=== PATIENT | male | born 1960 | race Caucasian/White ===

== ENCOUNTER 2020-11-16 15:32 | Inpatient (IN) | payer MEDICAID ==
--- NOTE | 2020-11-16 17:03 | EDM.PDOC ---
ED HPI GENERAL MEDICAL PROBLEM - General Chief Complaint: General Stated Complaint: general Time Seen by Provider: 11/16/20 16:20 Source of Information: Reports: Patient, EMS, Assisted Records - History of Present Illness INITIAL COMMENTS - FREE TEXT/NARRATIVE: Brady is a 60 y/o male who is brought to the ER by EMS. He was apparently a patient at [facility] in the [facility] for a chronic diabetic foot ulcer. He was [place] from [facility] and had a transport service bring him to [facility] for admission in [place]. Dr Garvey accepted the patient to [facility]. Upon arrival to the [facility] the patient was made aware that he would have to quarantine for 2 weeks due to the current COVID policy. He refused to be admitted there to the custodial and because he was still in the care of the transit service, 911 was called and [facility] brought him to the ER since he had no other place to go. access services assistant looked into the situation and this patient has apparently been in [place] and then went to [place], but was sent back to [place]. [place] then ended up sending him to [facility] to [facility] and he was taken care of there. Apparently he was going to be sent to a homeless half-way in the [facility], but was declined since he is wheelchair bound. He also has a power chair, but there was some issue with it and he needed to get a new one. He does not arrive here with a chair. low back Pain Score (Numeric/FACES): 6 - Related Data Allergies Allergy/AdvReac Type Severity Reaction Status Date / Time linezolid Allergy Other Verified 11/16/20 17:01 tetanus toxoid, adsorbed Allergy Other Verified 11/16/20 17:01 Home Meds: Home Meds Acetaminophen 650 mg PO Q4H PRN 11/16/20 [History] Albuterol [Proventil Neb Soln] 2.5 mg NEB Q4H PRN 11/16/20 [History] Albuterol/Ipratropium [DuoNeb 3.0-0.5 MG/3 ML] 3 ml NEB Q4H PRN 11/16/20 [History] Fluticasone Propion/Salmeterol [Fluticasone-Salmeterol 500-50] 1 inh PO BID 11/16/20 [History] Insulin Aspart [Novolog Flexpen] 34 unit SQ TIDMEALS 11/16/20 [History] Insulin Glarg,Human.Rec.Analog [Lantus Solostar] 78 units SQ DAILY@1500 11/16/20 [History] Ipratropium [Atrovent HFA Inh] 1 inh PO TID 11/16/20 [History] Losartan Potassium [Cozaar] 100 mg PO DAILY 11/16/20 [History] Multivitamin with Minerals [Multivitamins with Minerals] 1 tab PO DAILY 11/16/20 [History] Omeprazole 20 mg PO BIDAC 11/16/20 [History] Pregabalin 300 mg PO BID 11/16/20 [History] Tamsulosin HCl [Flomax] 0.4 mg PO DAILY 11/16/20 [History] Umeclidinium [place] [Incruse Ellipta] 1 inh PO DAILY 11/16/20 [History] amLODIPine [Norvasc] 5 mg PO DAILY 11/16/20 [History] atorvaSTATin [Lipitor] 40 mg PO BEDTIME 11/16/20 [History] hydroCHLOROthiazide [Hydrochlorothiazide] 50 mg PO DAILY 11/16/20 [History] ED ROS GENERAL - Review of Systems Review Of Systems: See Below Constitutional: Reports: No Symptoms HEENT: Reports: No Symptoms Respiratory: Reports: No Symptoms Cardiovascular: Reports: No Symptoms Endocrine: Reports: No Symptoms GI/Abdominal: Reports: No Symptoms : Reports: No Symptoms Musculoskeletal: Reports: No Symptoms Skin: Reports: No Symptoms Neurological: Reports: No Symptoms Psychiatric: Reports: No Symptoms Hematologic/Lymphatic: Reports: No Symptoms Immunologic: Reports: No Symptoms ED EXAM, GENERAL - Physical Exam Exam: See Below General Appearance: Alert, WD/WN, No Apparent Distress (Adult male, clothes slightly upkept.) Ears: Hearing Grossly Normal Nose: Normal Inspection, Normal Mucosa Throat/Mouth: Normal Inspection, Normal Lips, Normal Voice Head: Atraumatic, Normocephalic Respiratory/Chest: No Respiratory Distress GI/Abdominal: Normal Bowel Sounds, Soft (Male) Exam: Deferred Rectal (Males) Exam: Deferred Back Exam: Normal Inspection Extremities: Other (Note right BKA with well healed stump, 1 scabbed area noted on the right knee; left foot is partially amputated with an ulcer about 3cm in diameter noted on the bottom of the foot, there is a superficial open area on jesus top of the left foot along the healing incision.) Course - Vital Signs Text/Narrative:: The patient was seen by the RESEARCH PROJECT MANAGER. Patient had no complaints. footwear factory worker called to assist with placement. footwear factory worker spoke with patient and [facility] Reference Investigator. Patient has no other place to go at this time and no family in [place]. At 1655 Dr Bruce notified of need for patient to be admitted to Swing Bed and further social issues arranged. COVID testing ordered for admit to PCU. Last Recorded V/S: Last Vital Signs Temp 37.4 C 11/16/20 15:35 Pulse 100 11/16/20 15:35 Resp 18 11/16/20 15:35 BP 139/73 11/16/20 15:35 Pulse Ox 96 11/16/20 15:35 - Orders/Labs/Meds Orders: Active Orders 24 hr Category Date Time Status CORONAVIRUS COVID-19 RAPID [MOLEC] Stat Lab 11/16/20 17:04 Ordered Departure - Departure Time of Disposition: 17:00 Disposition: DC/Tfer to SNF 03 Condition: Good Clinical Impression: Chronic diabetic ulcer of left foot determined by examination, Homelessness Type 2 diabetes mellitus Qualifiers: Diabetes mellitus residential insulin use: unspecified residential insulin use status Diabetes mellitus complication status: with other specified complication Qualified Code(s): E11.69 - Type 2 diabetes mellitus with other specified complication - Discharge Information Referrals: Maria Del Carmen Garvey MD [Physician] - Forms: ED Department Discharge Additional Instructions: -Admit to SB per Dr Bruce Sepsis Event Note (ED) - Evaluation Sepsis Screening Result: No Definite Risk - Focused Exam Vital Signs: Vital Signs Temp Pulse Resp BP Pulse Ox 11/16/20 15:35 37.4 C 100 18 139/73 96 - My Orders Last 24 Hours: My Active Orders 11/16/20 17:04 CORONAVIRUS COVID-19 RAPID [MOLEC] Stat - Assessment/Plan Last 24 Hours: My Active Orders 11/16/20 17:04 CORONAVIRUS COVID-19 RAPID [MOLEC] Stat Assessment:: 1)Chronic Diabetic Foot Ulcer-Left Foot 2)Left Partal Amputation 2)Right BKA 3)Hx Type 2 DM 4)Homelessness Plan: See above
[2020-11-16] MEDS ORDERED: ALBUTEROL NEB PRN (17:42)
[2020-11-16] MEDS ORDERED: Albuterol/Ipratropium 3.0-0.5 MG/3 ML Neb Soln NEB PRN (17:42)
[2020-11-16] MEDS ORDERED: Glucagon,Human Recombinant 1 MG Vial IM PRN (17:44)
[2020-11-16] MEDS ORDERED: 50% Dextrose in Water 50 ML Syringe IVPUSH PRN (17:44)
[2020-11-16] MEDS ORDERED: atorvaSTATin 40 MG Tab PO SCH (20:00)
[2020-11-16] MEDS: Acetaminophen 325 MG Tab PO PRN (20:09)
[2020-11-16] MEDS: PREGABALIN PO SCH (20:11)
[2020-11-16] MEDS: INSULIN ASPART 100 UNIT/ML SQ SCH (20:43)
[2020-11-16] MEDS: Nicotine 21 MG/24 Hr Patch TRDERM SCH ×2 (20:43→23:57)
[2020-11-16] MEDS: INSULIN ASPART 100 UNIT/ML SUBCUT SCH (20:44)
[2020-11-16] MEDS: LANTUS 100 UNIT/ML SQ SCH (20:45)
[2020-11-16] MEDS: SALMETEROL PO SCH (20:45)
[2020-11-16] MEDS: FLUTICASONE PO SCH (20:45)
--- NOTE | 2020-11-16 22:58 | HP ---
CHIEF COMPLAINT: Weakness with diabetic ulcer. HISTORY OF PRESENT ILLNESS: The patient is a 60-year-old male who was intended to enter the [facility] today from transfer from [facility] yesterday. However, the patient did not get on the bus yesterday and came today. When he got to the care center, which was going to work with strengthening him after a known diabetic foot ulcer as he has had a prior right leg amputation, that [facility] have to be in quarantine for 14 days due to their protocol for COVID patients, and so he was brought over here to [facility] and dropped off. He was seen initially by JI Selby in emergency room, who had visited with social work job titles, Debo Garber, who felt that best option for the patient who needs to have placement figured out would be to place him on swing bed self-pay. To note, the patient has an extremely complicated history of multiple placements within the past several months. He is noted to be homeless. He had been living in [place] and then sent to [place] and then sent to [place]. He had been accepted at the [facility] by Dr. Maria Del Carmen Garvey. The patient denies being in any pain right now. He is weak. He has a difficult time with transfers. He has known chronic low back pain. The patient is otherwise alert. MEDICATIONS: He is currently on are acetaminophen 650 q.4 hours p.r.n., albuterol nebs 2.5 mg q.4 hours p.r.n., DuoNeb 3 mL q.4 hours p.r.n., amlodipine 5 mg 1 pill daily, atorvastatin 40 mg 1 pill at bedtime, fluticasone 1 inhalation twice a day nasal spray, hydrochlorothiazide 50 mg 1 pill daily, insulin NovoLog 34 units subcu t.i.d., insulin glargine 78 units at bedtime, ipratropium 1 inhalation 3 times a day, losartan 100 mg 1 pill daily, multivitamin 1 pill daily, omeprazole 20 mg 1 pill twice a day, Lyrica 300 mg 1 pill twice a day, tamsulosin 0.4 mg 1 pill daily, umeclidinium inhaler 1 inhalation daily. ALLERGIES: Linezolid (Zyvox) and tetanus toxoid. PAST MEDICAL HISTORY: The patient has a history of uncontrolled type 2 diabetes mellitus. He has had chronic ulcerations of his foot. He has had a left TMA and he has had a right BKA about 4 years ago. The patient has had an ulcer on his left foot. He has had hypertension, hypercholesterolemia, COPD, malnutrition, chronic low back pain with history of medical marijuana use, gastroesophageal reflux disease, intoxication in the past. He has had MRSA years ago. He denies any history of hepatitis infections or HIV infections. He had tobacco use disorder, history of osteomyelitis, diverticulosis. The patient had COVID-19 in 01/2020, was not hospitalized for it. He has not had the COVID vaccine and refuses to. PAST SURGICAL HISTORY: Upper GI with endoscopic ultrasound on 12/02/2018, ERCP 12/02/2018, amputation of transmetatarsal of his feet on the left. Had back surgery L1-L4. Had neck surgery, C2 fracture repair. He has had BKA of the right leg. FAMILY MEDICAL HISTORY: Mother of heart disease and had stroke and hypertension. Father had liver disease, heart disease, and lung disease. Two sisters are healthy. One sister has substance abuse. A brother has had substance abuse and of a fentanyl overdose. Maternal grandmother had breast cancer. Maternal grandfather had gout and a retinal detachment. Paternal grandmother had heart disease. SOCIAL HISTORY: The patient is single, never been . He is currently homeless. He had stayed in the [place] in [place] for several years and had lived at [facility]. The patient does not smoke cigarettes, but does chew tobacco. He will have alcohol use 1 to 2 cans a day. The patient is currently in a wheelchair. Does have a prosthetic leg. The patient when asked code level status, states that he does not want to be resuscitated and so therefore will be code level 2 status. This conversation was held in the presence of JI Jaime student. REVIEW OF SYSTEMS: The patient's weight has been about the same. No fever. No cough. No shortness of breath. No chest pain. No nausea. Bowels have been regular. He does have low back pain. No burning with urination. He has a dressed ulcer on bottom of his foot, is not currently draining. Right stump on his leg is well healed. He is weak. OBJECTIVE: Vital Signs: His blood pressure is 136/73, pulse 100, respiratory rate is 18, sats are 96%, temperature 99.4. HEENT: Pupils equal and reactive to light. Tympanic membranes are normal bilaterally. Pharynx is normal. No injection. He has no teeth. The patient has facial stubble present. Neck: No anterior cervical lymphadenopathy. Heart: Regular rate and rhythm without murmurs or bruits. Lungs: Clear to auscultation without wheezes or crackles. Abdomen: Bowel sounds are present. Soft, nontender. Obese. No hepatosplenomegaly appreciated. Skin: He has a few abrasions on his lower legs. He does have a sore on the bottom of his foot, looked up by Carolee WORKMAN, which is 3 cm in size with sharp margins with no odor. [place] granulation tissue present on the bottom of his stump. He has a small blister on the top of his left foot. Right BKA incision is well healed. Neurologic: He is alert, oriented, pleasant to visit with. His talking goes somewhat tangential at times. IMPRESSION: 1. Left diabetic foot ulcer. 2. Uncontrolled diabetes. 3. Weakness. 4. Homelessness. 5. Chronic low back pain. 6. Chewing tobacco addiction. 7. Hypertension. 8. Peptic ulcer disease. 9. Anxiety. 10.Substance abuse. 11.Chronic obstructive pulmonary disease. PLAN: The patient will be admitted to self-pay swing bed. Debo Garber, social work job titles, is aware of the patient being admitted. We will monitor his blood sugars. We will have Physical Therapy and OT work with the patient. Maria Del Carmen Garvey MD, will be accepting the patient. The patient will have a COVID screen. The patient will also be screened for MRSA as well due to his past history of MRSA. He was not placed on lovenox as it was felt that he was at his baseline for mobility. His COVID screen did come back negative. GM11/16/2020 18:03:56 MODL: 11/16/2020 22:48:41 /[id number] MTDD
[2020-11-17] MEDS: Omeprazole 20 MG Cap.CR PO SCH ×2 (06:01→16:23)
[2020-11-17] MEDS: INSULIN ASPART 100 UNIT/ML SUBCUT SCH ×3 (11:12→18:16)
[2020-11-17] MEDS: Nicotine 21 MG/24 Hr Patch TRDERM SCH (11:12)
[2020-11-17] MEDS: INSULIN ASPART 100 UNIT/ML SQ SCH (11:23)
[2020-11-17] MEDS: FLUTICASONE PO SCH ×2 (11:53→20:00)
[2020-11-17] MEDS: INSULIN ASPART SQ SCH ×2 (11:53→18:15)
[2020-11-17] MEDS: Multivitamins with Iron/Calcium/Folic Acid/Minerals Tab PO SCH (11:53)
[2020-11-17] MEDS: SALMETEROL PO SCH ×2 (11:53→20:00)
[2020-11-17] MEDS: PREGABALIN PO SCH ×2 (11:53→19:57)
[2020-11-17] MEDS ORDERED: IPRATROPIUM PO SCH (12:00)
[2020-11-17] MEDS ORDERED: UMECLIDINIUM BROMIDE 62.5 MCG PO SCH (16:00)
--- NOTE | 2020-11-17 16:19 | PCM.SN.2 ---
- Free Text/Narrative Note: Patient was seen for quick bedside rounds morning. Was admitted yesterday. Refused to go to the group home as he did not want to be under isolation. I was supposed to accept him from [facility] to [facility] for ongoing cares in regards to PT for strengthening and wound cares for his chronic ulcer. He does have a very difficult social situation with the patient being basically homeless and being shuffled from facility to facility. During rounds this morning he noted that he does not want to go anywhere. He would rather go back home and live [place]. He had no specific concerns at that time. Nursing did note that blood sugars were a little bit low today after he was initiated on the higher dose of insulin last night. We did decide to cut down his mealtime insulin to 25 units 3 times a day. He can continue on the long acting at 78 units daily. I did speak with pharmacy about some of the other medication concerns as these were not sent with and he is on self-pay swing; questions were clarified and pharmacist planned to send prescriptions for me. Spent considerable amount of time talking with her social sciences professor in regards to plan of care this patient. squadron worker is actively working with him to find a good fit in terms of plan of discharge. Was informed by the nurse late this morning that he is threatening to leave AMA if he does not get a pass to be able to go out into the community. Did state on rounds that he wanted to go see some of the businesses as well as explore some of the [place]. Told the nurse that he just wants to feel to go and buy chewing tobacco as well as some clothing. I did deny his pass to leave the facility as he is a brand-new patient to me and I did not want to have the liability of him potentially harming himself or others while technically under our watch. It does seem like he has decision-making capacity. I will relate this situation to the physician who will be technical operations manager overnight. Anticipate that if he does leave AMA that he will likely need to be readmitted as there is probably no where else for him to go in the community at this time.
[2020-11-17] MEDS: Tamsulosin 0.4 MG Cap.ER (OWN SUPPLY) PO SCH (16:22)
[2020-11-17] MEDS: LOSARTAN POTASSIUM PO SCH (16:22)
[2020-11-17] MEDS: amLODIPine 5 MG Tab (OWN SUPPLY) PO SCH (16:23)
[2020-11-17] MEDS: HYDROCHLOROTHIAZIDE 50 MG PO SCH (16:23)
[2020-11-17] MEDS: [UNRECOGNIZED DRUG - OTHER] INH SCH (16:23)
[2020-11-17] MEDS: TIOTROPIUM INH SCH (16:23)
[2020-11-17] MEDS: NICOTINE 2 MG PO PRN ×3 (16:24→23:58)
[2020-11-17] MEDS: LANTUS 100 UNIT/ML SQ SCH (20:07)
[2020-11-18] MEDS: Albuterol/Ipratropium 3.0-0.5 MG/3 ML Neb Soln NEB PRN (02:15)
[2020-11-18] MEDS: Acetaminophen 325 MG Tab PO PRN ×2 (04:08→22:31)
[2020-11-18] MEDS: Omeprazole 20 MG Cap.CR PO SCH ×2 (06:18→17:21)
[2020-11-18] MEDS: Tamsulosin 0.4 MG Cap.ER (OWN SUPPLY) PO SCH (07:59)
[2020-11-18] MEDS: LOSARTAN POTASSIUM PO SCH (07:59)
[2020-11-18] MEDS: HYDROCHLOROTHIAZIDE 50 MG PO SCH (07:59)
[2020-11-18] MEDS: Nicotine 21 MG/24 Hr Patch TRDERM SCH (08:00)
[2020-11-18] MEDS: amLODIPine 5 MG Tab (OWN SUPPLY) PO SCH (08:00)
[2020-11-18] MEDS: INSULIN ASPART SQ SCH ×3 (08:00→18:07)
[2020-11-18] MEDS: PREGABALIN PO SCH (08:00)
[2020-11-18] MEDS: FLUTICASONE PO SCH ×2 (08:01→19:41)
[2020-11-18] MEDS: [UNRECOGNIZED DRUG - OTHER] INH SCH (08:01)
[2020-11-18] MEDS: TIOTROPIUM INH SCH (08:01)
[2020-11-18] MEDS: NICOTINE 2 MG PO PRN (08:01)
[2020-11-18] MEDS: SALMETEROL PO SCH ×2 (08:01→19:41)
[2020-11-18] MEDS: INSULIN ASPART 100 UNIT/ML SUBCUT SCH ×3 (08:02→18:04)
[2020-11-18] MEDS: Multivitamins with Iron/Calcium/Folic Acid/Minerals Tab PO SCH (08:03)
[2020-11-18] MEDS: GUM PO PRN ×5 (12:11→23:14)
[2020-11-18] MEDS: NICOTINE 4 MG PO PRN ×5 (12:11→23:14)
[2020-11-18] MEDS: PREGABALIN 300 MG PO SCH (19:40)
[2020-11-18] MEDS: LANTUS 100 UNIT/ML SQ SCH (19:47)
[2020-11-18] MEDS: Melatonin 3 MG Tab PO PRN (22:31)
[2020-11-19] MEDS: Multivitamins with Iron/Calcium/Folic Acid/Minerals Tab PO SCH (07:40)
[2020-11-19] MEDS: Omeprazole 20 MG Cap.CR PO SCH ×2 (07:40→17:41)
[2020-11-19] MEDS: Tamsulosin 0.4 MG Cap.ER (OWN SUPPLY) PO SCH (07:41)
[2020-11-19] MEDS: HYDROCHLOROTHIAZIDE 50 MG PO SCH (07:41)
[2020-11-19] MEDS: LOSARTAN POTASSIUM PO SCH (07:42)
[2020-11-19] MEDS: amLODIPine 5 MG Tab (OWN SUPPLY) PO SCH (07:42)
[2020-11-19] MEDS: PREGABALIN 300 MG PO SCH ×2 (07:44→19:52)
[2020-11-19] MEDS: SALMETEROL PO SCH ×2 (07:45→19:53)
[2020-11-19] MEDS: Nicotine 21 MG/24 Hr Patch TRDERM SCH (07:45)
[2020-11-19] MEDS: FLUTICASONE PO SCH ×2 (07:45→19:53)
[2020-11-19] MEDS: [UNRECOGNIZED DRUG - OTHER] INH SCH (07:46)
[2020-11-19] MEDS: TIOTROPIUM INH SCH (07:46)
[2020-11-19] MEDS: NICOTINE 4 MG PO PRN ×3 (07:47→13:41)
[2020-11-19] MEDS: GUM PO PRN ×3 (07:47→13:41)
[2020-11-19] MEDS: INSULIN ASPART 100 UNIT/ML SUBCUT SCH ×3 (07:50→17:41)
[2020-11-19] MEDS: INSULIN ASPART SQ SCH ×3 (07:50→17:41)
[2020-11-19] MEDS: LANTUS SQ SCH (19:48)
[2020-11-19] MEDS ORDERED: INSULIN GLARGINE SQ SCH (20:00)
[2020-11-19] MEDS ORDERED: [UNRECOGNIZED DRUG - OTHER] SQ SCH (20:00)
[2020-11-19] MEDS: Albuterol/Ipratropium 3.0-0.5 MG/3 ML Neb Soln NEB PRN (20:53)
[2020-11-20] MEDS: Acetaminophen 325 MG Tab PO PRN ×2 (00:15→04:18)
[2020-11-20] MEDS: Omeprazole 20 MG Cap.CR PO SCH ×2 (06:23→17:50)
[2020-11-20] MEDS: amLODIPine 5 MG Tab (OWN SUPPLY) PO SCH (07:41)
[2020-11-20] MEDS: Multivitamins with Iron/Calcium/Folic Acid/Minerals Tab PO SCH (07:42)
[2020-11-20] MEDS: Tamsulosin 0.4 MG Cap.ER (OWN SUPPLY) PO SCH (07:42)
[2020-11-20] MEDS: LOSARTAN POTASSIUM PO SCH (07:42)
[2020-11-20] MEDS: HYDROCHLOROTHIAZIDE 50 MG PO SCH (07:43)
[2020-11-20] MEDS: PREGABALIN 300 MG PO SCH ×2 (07:43→19:58)
[2020-11-20] MEDS: INSULIN ASPART SQ SCH ×3 (07:44→17:29)
[2020-11-20] MEDS: FLUTICASONE PO SCH ×2 (07:44→19:56)
[2020-11-20] MEDS: SALMETEROL PO SCH ×2 (07:44→19:56)
[2020-11-20] MEDS: Nicotine 21 MG/24 Hr Patch TRDERM SCH (07:44)
[2020-11-20] MEDS: [UNRECOGNIZED DRUG - OTHER] INH SCH (07:44)
[2020-11-20] MEDS: TIOTROPIUM INH SCH (07:44)
[2020-11-20] MEDS: LANTUS SQ SCH (20:05)
[2020-11-21] MEDS: Omeprazole 20 MG Cap.CR PO SCH ×2 (06:12→17:25)
[2020-11-21] MEDS: Multivitamins with Iron/Calcium/Folic Acid/Minerals Tab PO SCH (07:29)
[2020-11-21] MEDS: HYDROCHLOROTHIAZIDE 50 MG PO SCH (07:29)
[2020-11-21] MEDS: LOSARTAN POTASSIUM PO SCH (07:30)
[2020-11-21] MEDS: Tamsulosin 0.4 MG Cap.ER (OWN SUPPLY) PO SCH (07:30)
[2020-11-21] MEDS: amLODIPine 5 MG Tab (OWN SUPPLY) PO SCH (07:30)
[2020-11-21] MEDS: PREGABALIN 300 MG PO SCH ×2 (07:31→19:33)
[2020-11-21] MEDS: INSULIN ASPART SQ SCH ×3 (07:33→17:25)
[2020-11-21] MEDS: SALMETEROL PO SCH ×2 (07:34→19:36)
[2020-11-21] MEDS: TIOTROPIUM INH SCH (07:34)
[2020-11-21] MEDS: FLUTICASONE PO SCH ×2 (07:34→19:36)
[2020-11-21] MEDS: [UNRECOGNIZED DRUG - OTHER] INH SCH (07:34)
[2020-11-21] MEDS: Nicotine 21 MG/24 Hr Patch TRDERM SCH (07:34)
[2020-11-21] MEDS: Albuterol/Ipratropium 3.0-0.5 MG/3 ML Neb Soln NEB PRN (19:29)
[2020-11-21] MEDS: LANTUS SQ SCH (19:39)
[2020-11-22] MEDS: Omeprazole 20 MG Cap.CR PO SCH ×2 (06:33→17:37)
[2020-11-22] MEDS: INSULIN ASPART SQ SCH ×3 (08:09→17:36)
[2020-11-22] MEDS: Nicotine 21 MG/24 Hr Patch TRDERM SCH (08:09)
[2020-11-22] MEDS: PREGABALIN 300 MG PO SCH ×2 (08:10→19:44)
[2020-11-22] MEDS: Multivitamins with Iron/Calcium/Folic Acid/Minerals Tab PO SCH (08:10)
[2020-11-22] MEDS: LOSARTAN POTASSIUM PO SCH (08:11)
[2020-11-22] MEDS: amLODIPine 5 MG Tab (OWN SUPPLY) PO SCH (08:11)
[2020-11-22] MEDS: HYDROCHLOROTHIAZIDE 50 MG PO SCH (08:12)
[2020-11-22] MEDS: SALMETEROL PO SCH ×2 (08:12→19:45)
[2020-11-22] MEDS: Tamsulosin 0.4 MG Cap.ER (OWN SUPPLY) PO SCH (08:12)
[2020-11-22] MEDS: FLUTICASONE PO SCH ×2 (08:12→19:45)
[2020-11-22] MEDS: TIOTROPIUM INH SCH (08:14)
[2020-11-22] MEDS: [UNRECOGNIZED DRUG - OTHER] INH SCH (08:14)
[2020-11-22] MEDS: Albuterol/Ipratropium 3.0-0.5 MG/3 ML Neb Soln NEB PRN ×2 (15:15→19:50)
[2020-11-22] MEDS: LANTUS SQ SCH (19:48)
[2020-11-23] MEDS: Melatonin 3 MG Tab PO PRN (02:06)
[2020-11-23] MEDS: Omeprazole 20 MG Cap.CR PO SCH ×2 (06:11→16:46)
[2020-11-23] MEDS: amLODIPine 5 MG Tab (OWN SUPPLY) PO SCH (08:09)
[2020-11-23] MEDS: PREGABALIN 300 MG PO SCH ×2 (08:09→20:03)
[2020-11-23] MEDS: HYDROCHLOROTHIAZIDE 50 MG PO SCH (08:10)
[2020-11-23] MEDS: Tamsulosin 0.4 MG Cap.ER (OWN SUPPLY) PO SCH (08:10)
[2020-11-23] MEDS: LOSARTAN POTASSIUM PO SCH (08:10)
[2020-11-23] MEDS: Multivitamins with Iron/Calcium/Folic Acid/Minerals Tab PO SCH (08:11)
[2020-11-23] MEDS: TIOTROPIUM INH SCH (08:11)
[2020-11-23] MEDS: FLUTICASONE PO SCH ×2 (08:11→20:03)
[2020-11-23] MEDS: SALMETEROL PO SCH ×2 (08:11→20:03)
[2020-11-23] MEDS: [UNRECOGNIZED DRUG - OTHER] INH SCH (08:11)
[2020-11-23] MEDS: Nicotine 21 MG/24 Hr Patch TRDERM SCH (08:11)
[2020-11-23] MEDS: Acetaminophen 325 MG Tab PO PRN ×2 (08:12→16:46)
[2020-11-23] MEDS: INSULIN ASPART SQ SCH ×3 (09:19→17:45)
[2020-11-23] MEDS: Albuterol/Ipratropium 3.0-0.5 MG/3 ML Neb Soln NEB PRN (15:05)
[2020-11-23] MEDS: LANTUS SQ SCH (20:01)
[2020-11-23] MEDS: GUM PO PRN (21:21)
[2020-11-23] MEDS: NICOTINE 4 MG PO PRN (21:21)
[2020-11-23] MEDS ORDERED: Calcium Carbonate 750 MG Tab.Chew PO PRN ×3 (22:36→22:58)
[2020-11-23] MEDS ORDERED: Calcium Carbonate 750 MG Tab.Chew PO ONE (22:50)
[2020-11-24] MEDS: Ibuprofen 200 MG Tab PO PRN (00:05)
[2020-11-24] MEDS: Melatonin 3 MG Tab PO PRN (01:34)
[2020-11-24] MEDS: Albuterol/Ipratropium 3.0-0.5 MG/3 ML Neb Soln NEB PRN (02:41)
[2020-11-24] MEDS: Omeprazole 20 MG Cap.CR PO SCH ×2 (06:10→17:46)
[2020-11-24] MEDS: Multivitamins with Iron/Calcium/Folic Acid/Minerals Tab PO SCH (09:32)
[2020-11-24] MEDS: PREGABALIN 300 MG PO SCH ×2 (09:35→20:57)
[2020-11-24] MEDS: Tamsulosin 0.4 MG Cap.ER (OWN SUPPLY) PO SCH (09:36)
[2020-11-24] MEDS: Nicotine 21 MG/24 Hr Patch TRDERM SCH (09:36)
[2020-11-24] MEDS: FLUTICASONE PO SCH ×2 (09:38→20:57)
[2020-11-24] MEDS: SALMETEROL PO SCH ×2 (09:38→20:57)
[2020-11-24] MEDS: HYDROCHLOROTHIAZIDE 50 MG PO SCH (09:38)
[2020-11-24] MEDS: amLODIPine 5 MG Tab (OWN SUPPLY) PO SCH (09:39)
[2020-11-24] MEDS: LOSARTAN POTASSIUM PO SCH (09:39)
[2020-11-24] MEDS: TIOTROPIUM INH SCH (09:41)
[2020-11-24] MEDS: [UNRECOGNIZED DRUG - OTHER] INH SCH (09:41)
[2020-11-24] MEDS: INSULIN ASPART SQ SCH ×3 (09:41→17:51)
[2020-11-24] MEDS: LANTUS SQ SCH (20:59)
[2020-11-25] MEDS: Omeprazole 20 MG Cap.CR PO SCH ×2 (06:35→17:40)
[2020-11-25] MEDS: Tamsulosin 0.4 MG Cap.ER (OWN SUPPLY) PO SCH (10:30)
[2020-11-25] MEDS: Nicotine 21 MG/24 Hr Patch TRDERM SCH (10:30)
[2020-11-25] MEDS: amLODIPine 5 MG Tab (OWN SUPPLY) PO SCH (10:31)
[2020-11-25] MEDS: HYDROCHLOROTHIAZIDE 50 MG PO SCH (10:31)
[2020-11-25] MEDS: PREGABALIN 300 MG PO SCH ×2 (10:34→20:55)
[2020-11-25] MEDS: LOSARTAN POTASSIUM PO SCH (10:34)
[2020-11-25] MEDS: Multivitamins with Iron/Calcium/Folic Acid/Minerals Tab PO SCH (10:37)
[2020-11-25] MEDS: TIOTROPIUM INH SCH (10:41)
[2020-11-25] MEDS: [UNRECOGNIZED DRUG - OTHER] INH SCH (10:41)
[2020-11-25] MEDS: SALMETEROL PO SCH ×2 (10:42→20:48)
[2020-11-25] MEDS: FLUTICASONE PO SCH ×2 (10:42→20:48)
[2020-11-25] MEDS: INSULIN ASPART SQ SCH ×3 (10:43→17:42)
[2020-11-25] MEDS: Albuterol/Ipratropium 3.0-0.5 MG/3 ML Neb Soln NEB PRN (14:38)
[2020-11-25] MEDS: LANTUS SQ SCH (20:50)
[2020-11-26] MEDS: Ibuprofen 200 MG Tab PO PRN (06:21)
[2020-11-26] MEDS: Omeprazole 20 MG Cap.CR PO SCH ×2 (06:21→17:35)
[2020-11-26] MEDS: Acetaminophen 325 MG Tab PO PRN (08:45)
[2020-11-26] MEDS: Multivitamins with Iron/Calcium/Folic Acid/Minerals Tab PO SCH (08:45)
[2020-11-26] MEDS: PREGABALIN 300 MG PO SCH ×2 (08:46→20:38)
[2020-11-26] MEDS: SALMETEROL PO SCH ×2 (08:46→20:38)
[2020-11-26] MEDS: FLUTICASONE PO SCH ×2 (08:46→20:38)
[2020-11-26] MEDS: [UNRECOGNIZED DRUG - OTHER] INH SCH (08:47)
[2020-11-26] MEDS: TIOTROPIUM INH SCH (08:47)
[2020-11-26] MEDS: HYDROCHLOROTHIAZIDE 50 MG PO SCH (08:48)
[2020-11-26] MEDS: LOSARTAN POTASSIUM PO SCH (08:48)
[2020-11-26] MEDS: Tamsulosin 0.4 MG Cap.ER (OWN SUPPLY) PO SCH (08:49)
[2020-11-26] MEDS: amLODIPine 5 MG Tab (OWN SUPPLY) PO SCH (08:49)
[2020-11-26] MEDS: Nicotine 21 MG/24 Hr Patch TRDERM SCH (08:55)
[2020-11-26] MEDS: INSULIN ASPART SQ SCH ×3 (08:55→17:36)
[2020-11-26] MEDS: LANTUS SQ SCH (21:18)
[2020-11-27] MEDS: Omeprazole 20 MG Cap.CR PO SCH ×2 (06:33→17:51)
[2020-11-27] MEDS: Multivitamins with Iron/Calcium/Folic Acid/Minerals Tab PO SCH (08:20)
[2020-11-27] MEDS: SALMETEROL PO SCH ×2 (08:22→19:54)
[2020-11-27] MEDS: FLUTICASONE PO SCH ×2 (08:22→19:54)
[2020-11-27] MEDS: Tamsulosin 0.4 MG Cap.ER (OWN SUPPLY) PO SCH (08:22)
[2020-11-27] MEDS: HYDROCHLOROTHIAZIDE 50 MG PO SCH (08:24)
[2020-11-27] MEDS: INSULIN ASPART SQ SCH ×3 (08:26→17:48)
[2020-11-27] MEDS: LOSARTAN POTASSIUM PO SCH (08:27)
[2020-11-27] MEDS: amLODIPine 5 MG Tab (OWN SUPPLY) PO SCH (08:29)
[2020-11-27] MEDS: PREGABALIN 300 MG PO SCH ×2 (08:32→19:55)
[2020-11-27] MEDS: TIOTROPIUM INH SCH (08:34)
[2020-11-27] MEDS: Nicotine 21 MG/24 Hr Patch TRDERM SCH (08:34)
[2020-11-27] MEDS: [UNRECOGNIZED DRUG - OTHER] INH SCH (08:34)
[2020-11-27] MEDS: LANTUS SQ SCH (19:55)
[2020-11-27] MEDS: Albuterol/Ipratropium 3.0-0.5 MG/3 ML Neb Soln NEB PRN (23:54)
[2020-11-28] MEDS: Acetaminophen 325 MG Tab PO PRN ×2 (01:01→15:01)
[2020-11-28] MEDS: Omeprazole 20 MG Cap.CR PO SCH ×2 (06:18→17:57)
[2020-11-28] MEDS: Tamsulosin 0.4 MG Cap.ER (OWN SUPPLY) PO SCH ×2 (07:51→08:38)
[2020-11-28] MEDS: LOSARTAN POTASSIUM PO SCH ×3 (07:51→08:44)
[2020-11-28] MEDS: HYDROCHLOROTHIAZIDE 50 MG PO SCH ×2 (07:57→08:44)
[2020-11-28] MEDS: Nicotine 21 MG/24 Hr Patch TRDERM SCH (07:57)
[2020-11-28] MEDS: SALMETEROL PO SCH ×3 (07:57→20:40)
[2020-11-28] MEDS: FLUTICASONE PO SCH ×3 (07:57→20:40)
[2020-11-28] MEDS: TIOTROPIUM INH SCH ×2 (07:58→08:40)
[2020-11-28] MEDS: PREGABALIN 300 MG PO SCH ×3 (07:58→20:39)
[2020-11-28] MEDS: [UNRECOGNIZED DRUG - OTHER] INH SCH ×2 (07:58→08:40)
[2020-11-28] MEDS: amLODIPine 5 MG Tab (OWN SUPPLY) PO SCH ×2 (07:58→08:43)
[2020-11-28] MEDS: INSULIN ASPART SQ SCH ×4 (07:58→17:57)
[2020-11-28] MEDS: Multivitamins with Iron/Calcium/Folic Acid/Minerals Tab PO SCH ×2 (07:59→08:46)
[2020-11-28] MEDS: LANTUS SQ SCH (20:39)
[2020-11-29] MEDS: Acetaminophen 325 MG Tab PO PRN (05:48)
[2020-11-29] MEDS: Omeprazole 20 MG Cap.CR PO SCH ×2 (06:28→17:56)
[2020-11-29] MEDS: LOSARTAN POTASSIUM PO SCH (11:05)
[2020-11-29] MEDS: FLUTICASONE PO SCH ×2 (11:05→20:43)
[2020-11-29] MEDS: SALMETEROL PO SCH ×2 (11:05→20:43)
[2020-11-29] MEDS: Tamsulosin 0.4 MG Cap.ER (OWN SUPPLY) PO SCH (11:05)
[2020-11-29] MEDS: Nicotine 21 MG/24 Hr Patch TRDERM SCH (11:05)
[2020-11-29] MEDS: Multivitamins with Iron/Calcium/Folic Acid/Minerals Tab PO SCH (11:07)
[2020-11-29] MEDS: PREGABALIN 300 MG PO SCH ×2 (11:07→20:44)
[2020-11-29] MEDS: TIOTROPIUM INH SCH (11:07)
[2020-11-29] MEDS: [UNRECOGNIZED DRUG - OTHER] INH SCH (11:07)
[2020-11-29] MEDS: HYDROCHLOROTHIAZIDE 50 MG PO SCH (11:08)
[2020-11-29] MEDS: amLODIPine 5 MG Tab (OWN SUPPLY) PO SCH (11:08)
[2020-11-29] MEDS: INSULIN ASPART SQ SCH ×3 (11:09→17:56)
[2020-11-29] MEDS: LANTUS SQ SCH (20:39)
[2020-11-30] MEDS: Acetaminophen 325 MG Tab PO PRN (06:24)
[2020-11-30] MEDS: Omeprazole 20 MG Cap.CR PO SCH ×2 (06:24→18:16)
[2020-11-30] MEDS: Multivitamins with Iron/Calcium/Folic Acid/Minerals Tab PO SCH (08:53)
[2020-11-30] MEDS: PREGABALIN 300 MG PO SCH ×2 (08:54→19:56)
[2020-11-30] MEDS: Tamsulosin 0.4 MG Cap.ER (OWN SUPPLY) PO SCH (08:55)
[2020-11-30] MEDS: HYDROCHLOROTHIAZIDE 50 MG PO SCH (08:56)
[2020-11-30] MEDS: FLUTICASONE PO SCH ×2 (08:57→19:56)
[2020-11-30] MEDS: SALMETEROL PO SCH ×2 (08:57→19:56)
[2020-11-30] MEDS: Nicotine 21 MG/24 Hr Patch TRDERM SCH (08:57)
[2020-11-30] MEDS: INSULIN ASPART SQ SCH ×3 (08:58→18:15)
[2020-11-30] MEDS: [UNRECOGNIZED DRUG - OTHER] INH SCH (08:59)
[2020-11-30] MEDS: amLODIPine 5 MG Tab (OWN SUPPLY) PO SCH (08:59)
[2020-11-30] MEDS: LOSARTAN POTASSIUM PO SCH (08:59)
[2020-11-30] MEDS: TIOTROPIUM INH SCH (08:59)
[2020-11-30] MEDS ORDERED: Cyclobenzaprine 10 MG Tab PO PRN (10:18)
--- NOTE | 2020-11-30 10:20 | PCM.SN.2 ---
- Free Text/Narrative Note: Updated by nursing staff about patient's ongoing complaints of back pain. I think it will be reasonable at this time to try a low-dose of a muscle relaxer. I did put in for Flexeril 5 mg to be given up to 3 times a day for back pain/spasm. This is a chronic problem for him. I also reviewed his most recent vitals as well as his blood sugars. Vital signs have been relatively stable. Diastolic blood pressure slightly above 90. Blood sugars are now trending up into the 200-300 range consistently. We will incre ase his Lantus 63 units at bedtime.
[2020-11-30] MEDS: LANTUS SQ SCH (20:02)
[2020-12-01] MEDS: Omeprazole 20 MG Cap.CR PO SCH ×2 (06:44→17:24)
[2020-12-01] MEDS: Multivitamins with Iron/Calcium/Folic Acid/Minerals Tab PO SCH (08:36)
[2020-12-01] MEDS: PREGABALIN 300 MG PO SCH ×2 (08:37→20:04)
[2020-12-01] MEDS: LOSARTAN POTASSIUM PO SCH (08:37)
[2020-12-01] MEDS: Tamsulosin 0.4 MG Cap.ER (OWN SUPPLY) PO SCH (08:38)
[2020-12-01] MEDS: HYDROCHLOROTHIAZIDE 50 MG PO SCH (08:38)
[2020-12-01] MEDS: amLODIPine 5 MG Tab (OWN SUPPLY) PO SCH (08:39)
[2020-12-01] MEDS: INSULIN ASPART SQ SCH ×4 (08:39→17:28)
[2020-12-01] MEDS: [UNRECOGNIZED DRUG - OTHER] INH SCH (08:40)
[2020-12-01] MEDS: FLUTICASONE PO SCH ×2 (08:40→20:05)
[2020-12-01] MEDS: GUM PO PRN ×2 (08:40→22:10)
[2020-12-01] MEDS: NICOTINE 4 MG PO PRN ×2 (08:40→22:10)
[2020-12-01] MEDS: TIOTROPIUM INH SCH (08:40)
[2020-12-01] MEDS: Nicotine 21 MG/24 Hr Patch TRDERM SCH (08:40)
[2020-12-01] MEDS: SALMETEROL PO SCH ×2 (08:40→20:05)
[2020-12-01] MEDS: LANTUS SQ SCH (20:07)
[2020-12-02] MEDS: Omeprazole 20 MG Cap.CR PO SCH ×2 (06:52→17:30)
[2020-12-02] MEDS: Nicotine 21 MG/24 Hr Patch TRDERM SCH (07:34)
[2020-12-02] MEDS: PREGABALIN 300 MG PO SCH ×2 (07:35→19:37)
[2020-12-02] MEDS: Multivitamins with Iron/Calcium/Folic Acid/Minerals Tab PO SCH (07:35)
[2020-12-02] MEDS: amLODIPine 5 MG Tab (OWN SUPPLY) PO SCH (07:36)
[2020-12-02] MEDS: HYDROCHLOROTHIAZIDE 50 MG PO SCH (07:41)
[2020-12-02] MEDS: LOSARTAN POTASSIUM PO SCH (07:42)
[2020-12-02] MEDS: Tamsulosin 0.4 MG Cap.ER (OWN SUPPLY) PO SCH (07:42)
[2020-12-02] MEDS: TIOTROPIUM INH SCH (07:43)
[2020-12-02] MEDS: [UNRECOGNIZED DRUG - OTHER] INH SCH (07:43)
[2020-12-02] MEDS: INSULIN ASPART SQ SCH ×3 (07:45→17:31)
[2020-12-02] MEDS: SALMETEROL PO SCH ×2 (07:45→19:38)
[2020-12-02] MEDS: FLUTICASONE PO SCH ×2 (07:45→19:38)
--- NOTE | 2020-12-02 08:43 | PCM.SN.2 ---
- Free Text/Narrative Note: Spoke with patient about chronic low back pain. Notes that he takes medical THC at home for his chronic pain. Having trouble with amount of time spent in poor- quality hospital bed. Does get up and into wheelchair to 'cruise' the unit a couple times a day. Sleep is the worst. Has muscle relaxers on board with min imal relief. Discussed heating pad and stretching as well. Will add on Tramadol 50mg at bedtime daily. Patient in agreement. Patient aware this will not be prescribed on D/C as it will not allow for medical THC to be used along side it.
[2020-12-02] MEDS: GUM PO PRN ×4 (09:27→20:39)
[2020-12-02] MEDS: NICOTINE 4 MG PO PRN ×4 (09:27→20:39)
[2020-12-02] MEDS: LANTUS SQ SCH (19:41)
[2020-12-02] MEDS: Melatonin 3 MG Tab PO PRN (22:31)
[2020-12-03] MEDS: GUM PO PRN ×2 (06:21→15:12)
[2020-12-03] MEDS: NICOTINE 4 MG PO PRN ×2 (06:21→15:12)
[2020-12-03] MEDS: Omeprazole 20 MG Cap.CR PO SCH ×2 (06:22→19:33)
[2020-12-03] MEDS: HYDROCHLOROTHIAZIDE 50 MG PO SCH (08:35)
[2020-12-03] MEDS: Tamsulosin 0.4 MG Cap.ER (OWN SUPPLY) PO SCH (08:35)
[2020-12-03] MEDS: amLODIPine 5 MG Tab (OWN SUPPLY) PO SCH (08:36)
[2020-12-03] MEDS: LOSARTAN POTASSIUM PO SCH (08:37)
[2020-12-03] MEDS: Multivitamins with Iron/Calcium/Folic Acid/Minerals Tab PO SCH (08:38)
[2020-12-03] MEDS: PREGABALIN 300 MG PO SCH ×2 (08:38→21:25)
[2020-12-03] MEDS: Nicotine 21 MG/24 Hr Patch TRDERM SCH (08:39)
[2020-12-03] MEDS: TIOTROPIUM INH SCH (08:42)
[2020-12-03] MEDS: [UNRECOGNIZED DRUG - OTHER] INH SCH (08:42)
[2020-12-03] MEDS: SALMETEROL PO SCH ×2 (08:42→21:23)
[2020-12-03] MEDS: FLUTICASONE PO SCH ×2 (08:42→21:23)
[2020-12-03] MEDS: INSULIN ASPART SQ SCH ×3 (08:45→19:32)
[2020-12-03] MEDS: INSULIN GLARGINE SUBCUT SCH (21:30)
[2020-12-03] MEDS: [UNRECOGNIZED DRUG - OTHER] SUBCUT SCH (21:30)
[2020-12-04] MEDS: Tamsulosin 0.4 MG Cap.ER (OWN SUPPLY) PO SCH (08:12)
[2020-12-04] MEDS: LOSARTAN POTASSIUM PO SCH (08:12)
[2020-12-04] MEDS: SALMETEROL PO SCH ×2 (08:13→20:45)
[2020-12-04] MEDS: HYDROCHLOROTHIAZIDE 50 MG PO SCH (08:13)
[2020-12-04] MEDS: FLUTICASONE PO SCH ×2 (08:13→20:45)
[2020-12-04] MEDS: INSULIN ASPART SQ SCH ×3 (08:13→17:31)
[2020-12-04] MEDS: PREGABALIN 300 MG PO SCH ×2 (08:14→20:45)
[2020-12-04] MEDS: Omeprazole 20 MG Cap.CR PO SCH ×2 (08:14→17:31)
[2020-12-04] MEDS: Multivitamins with Iron/Calcium/Folic Acid/Minerals Tab PO SCH (08:14)
[2020-12-04] MEDS: TIOTROPIUM INH SCH (08:14)
[2020-12-04] MEDS: [UNRECOGNIZED DRUG - OTHER] INH SCH (08:14)
[2020-12-04] MEDS: Nicotine 21 MG/24 Hr Patch TRDERM SCH (08:14)
[2020-12-04] MEDS: amLODIPine 5 MG Tab (OWN SUPPLY) PO SCH (08:15)
[2020-12-04] MEDS: INSULIN GLARGINE SUBCUT SCH (20:47)
[2020-12-04] MEDS: [UNRECOGNIZED DRUG - OTHER] SUBCUT SCH (20:47)
[2020-12-04] MEDS: Melatonin 3 MG Tab PO PRN (23:54)
[2020-12-05] MEDS: Omeprazole 20 MG Cap.CR PO SCH ×2 (06:40→17:28)
[2020-12-05] MEDS: PREGABALIN 300 MG PO SCH ×2 (07:47→19:38)
[2020-12-05] MEDS: Multivitamins with Iron/Calcium/Folic Acid/Minerals Tab PO SCH (07:47)
[2020-12-05] MEDS: SALMETEROL PO SCH ×2 (07:48→19:37)
[2020-12-05] MEDS: Tamsulosin 0.4 MG Cap.ER (OWN SUPPLY) PO SCH (07:48)
[2020-12-05] MEDS: FLUTICASONE PO SCH ×2 (07:48→19:37)
[2020-12-05] MEDS: LOSARTAN POTASSIUM PO SCH (07:48)
[2020-12-05] MEDS: HYDROCHLOROTHIAZIDE 50 MG PO SCH (07:48)
[2020-12-05] MEDS: TIOTROPIUM INH SCH (07:49)
[2020-12-05] MEDS: [UNRECOGNIZED DRUG - OTHER] INH SCH (07:49)
[2020-12-05] MEDS: amLODIPine 5 MG Tab (OWN SUPPLY) PO SCH (07:52)
[2020-12-05] MEDS: INSULIN ASPART SQ SCH ×3 (07:54→17:28)
[2020-12-05] MEDS: Nicotine 21 MG/24 Hr Patch TRDERM SCH (07:57)
[2020-12-05] MEDS: INSULIN GLARGINE SUBCUT SCH (19:40)
[2020-12-05] MEDS: [UNRECOGNIZED DRUG - OTHER] SUBCUT SCH (19:40)
[2020-12-05] MEDS: Melatonin 3 MG Tab PO PRN (23:55)
[2020-12-06] MEDS: Omeprazole 20 MG Cap.CR PO SCH ×2 (06:40→16:59)
[2020-12-06] MEDS: INSULIN ASPART SQ SCH ×3 (08:07→18:04)
[2020-12-06] MEDS: SALMETEROL PO SCH ×2 (08:07→19:58)
[2020-12-06] MEDS: FLUTICASONE PO SCH ×2 (08:07→19:58)
[2020-12-06] MEDS: TIOTROPIUM INH SCH (08:08)
[2020-12-06] MEDS: [UNRECOGNIZED DRUG - OTHER] INH SCH (08:08)
[2020-12-06] MEDS: Tamsulosin 0.4 MG Cap.ER (OWN SUPPLY) PO SCH (08:10)
[2020-12-06] MEDS: amLODIPine 5 MG Tab (OWN SUPPLY) PO SCH (08:11)
[2020-12-06] MEDS: HYDROCHLOROTHIAZIDE 50 MG PO SCH (08:11)
[2020-12-06] MEDS: LOSARTAN POTASSIUM PO SCH (08:11)
[2020-12-06] MEDS: Multivitamins with Iron/Calcium/Folic Acid/Minerals Tab PO SCH (08:12)
[2020-12-06] MEDS: Nicotine 21 MG/24 Hr Patch TRDERM SCH (08:13)
[2020-12-06] MEDS: PREGABALIN 300 MG PO SCH ×2 (08:14→19:59)
[2020-12-06] MEDS ORDERED: Nicotine 21 MG/24 Hr Patch TRDERM PRN (08:19)
[2020-12-06] MEDS: Albuterol/Ipratropium 3.0-0.5 MG/3 ML Neb Soln (OWN SUPPLY) NEB PRN ×2 (13:39→18:03)
[2020-12-06] MEDS: [UNRECOGNIZED DRUG - OTHER] SUBCUT SCH (20:03)
[2020-12-06] MEDS: INSULIN GLARGINE SUBCUT SCH (20:03)
[2020-12-07] MEDS: Acetaminophen 325 MG Tab PO PRN (02:08)
[2020-12-07] MEDS: Omeprazole 20 MG Cap.CR PO SCH ×2 (06:13→17:26)
[2020-12-07] MEDS: SALMETEROL PO SCH ×2 (08:41→20:33)
[2020-12-07] MEDS: FLUTICASONE PO SCH ×2 (08:41→20:33)
[2020-12-07] MEDS: [UNRECOGNIZED DRUG - OTHER] INH SCH (08:42)
[2020-12-07] MEDS: TIOTROPIUM INH SCH (08:42)
[2020-12-07] MEDS: Tamsulosin 0.4 MG Cap.ER (OWN SUPPLY) PO SCH (08:44)
[2020-12-07] MEDS: Multivitamins with Iron/Calcium/Folic Acid/Minerals Tab PO SCH (08:44)
[2020-12-07] MEDS: LOSARTAN POTASSIUM PO SCH (08:44)
[2020-12-07] MEDS: PREGABALIN 300 MG PO SCH ×2 (08:45→20:39)
[2020-12-07] MEDS: amLODIPine 5 MG Tab (OWN SUPPLY) PO SCH (08:47)
[2020-12-07] MEDS: INSULIN ASPART SQ SCH ×3 (08:48→18:42)
[2020-12-07] MEDS: HYDROCHLOROTHIAZIDE 50 MG PO SCH (08:52)
--- NOTE | 2020-12-07 09:43 | PCM.SN.2 ---
- Free Text/Narrative Note: Provider informed by nursing that patient has a swollen right middle finger. First noted this yesterday. ? infection/paronychia. Patient noted that the nail feels fine, denies drainage. Pain is the DIP joint, trouble with bending. Denies history of gout. No fevers, chills, etc. No injury to the site. Provider also reviewed vitals and patient's BP has been running steadily high for the last 2 weeks Plan: Gout: colchicine 1.2mg today, 0.6mg daily thereafter for 7 days total HTN: increase Norvasc to 10mg daily.
[2020-12-07] MEDS ORDERED: COLCHICINE 0.6 MG PO ONE (12:00)
[2020-12-07] MEDS: Albuterol/Ipratropium 3.0-0.5 MG/3 ML Neb Soln (OWN SUPPLY) NEB PRN (17:26)
[2020-12-07] MEDS: [UNRECOGNIZED DRUG - OTHER] SUBCUT SCH (20:42)
[2020-12-07] MEDS: INSULIN GLARGINE SUBCUT SCH (20:42)
[2020-12-08] MEDS: Omeprazole 20 MG Cap.CR PO SCH ×2 (06:11→17:24)
[2020-12-08] MEDS: Multivitamins with Iron/Calcium/Folic Acid/Minerals Tab PO SCH (07:51)
[2020-12-08] MEDS: amLODIPine 5 MG Tab (OWN SUPPLY) PO SCH (07:52)
[2020-12-08] MEDS: COLCHICINE 0.6 MG PO SCH (07:54)
[2020-12-08] MEDS: HYDROCHLOROTHIAZIDE 50 MG PO SCH (07:54)
[2020-12-08] MEDS: LOSARTAN POTASSIUM PO SCH (07:55)
[2020-12-08] MEDS: Tamsulosin 0.4 MG Cap.ER (OWN SUPPLY) PO SCH (07:55)
[2020-12-08] MEDS: PREGABALIN 300 MG PO SCH ×2 (07:56→20:29)
[2020-12-08] MEDS: SALMETEROL PO SCH ×2 (07:57→20:29)
[2020-12-08] MEDS: FLUTICASONE PO SCH ×2 (07:57→20:29)
[2020-12-08] MEDS: TIOTROPIUM INH SCH (07:58)
[2020-12-08] MEDS: [UNRECOGNIZED DRUG - OTHER] INH SCH (07:58)
[2020-12-08] MEDS: INSULIN ASPART SQ SCH ×4 (08:00→17:24)
[2020-12-08] MEDS: INSULIN GLARGINE SUBCUT SCH (20:41)
[2020-12-08] MEDS: [UNRECOGNIZED DRUG - OTHER] SUBCUT SCH (20:41)
[2020-12-09] MEDS: Omeprazole 20 MG Cap.CR PO SCH ×2 (06:23→17:59)
[2020-12-09] MEDS: COLCHICINE 0.6 MG PO SCH (08:58)
[2020-12-09] MEDS: Multivitamins with Iron/Calcium/Folic Acid/Minerals Tab PO SCH (08:59)
[2020-12-09] MEDS: INSULIN ASPART SQ SCH ×3 (08:59→17:57)
[2020-12-09] MEDS: Tamsulosin 0.4 MG Cap.ER (OWN SUPPLY) PO SCH (09:00)
[2020-12-09] MEDS: HYDROCHLOROTHIAZIDE 50 MG PO SCH (09:00)
[2020-12-09] MEDS: LOSARTAN POTASSIUM PO SCH (09:00)
[2020-12-09] MEDS: FLUTICASONE PO SCH ×2 (09:01→20:44)
[2020-12-09] MEDS: SALMETEROL PO SCH ×2 (09:01→20:44)
[2020-12-09] MEDS: PREGABALIN 300 MG PO SCH ×2 (09:02→20:41)
[2020-12-09] MEDS: [UNRECOGNIZED DRUG - OTHER] INH SCH (09:03)
[2020-12-09] MEDS: TIOTROPIUM INH SCH (09:03)
[2020-12-09] MEDS: amLODIPine 5 MG Tab (OWN SUPPLY) PO SCH (09:05)
[2020-12-09] MEDS: INSULIN GLARGINE SUBCUT SCH (20:42)
[2020-12-09] MEDS: [UNRECOGNIZED DRUG - OTHER] SUBCUT SCH (20:42)
[2020-12-10] MEDS: Omeprazole 20 MG Cap.CR PO SCH ×2 (07:42→18:15)
[2020-12-10] MEDS: Tamsulosin 0.4 MG Cap.ER (OWN SUPPLY) PO SCH (07:42)
[2020-12-10] MEDS: amLODIPine 5 MG Tab (OWN SUPPLY) PO SCH (07:42)
[2020-12-10] MEDS: Multivitamins with Iron/Calcium/Folic Acid/Minerals Tab PO SCH (07:42)
[2020-12-10] MEDS: LOSARTAN POTASSIUM PO SCH (07:43)
[2020-12-10] MEDS: HYDROCHLOROTHIAZIDE 50 MG PO SCH (07:43)
[2020-12-10] MEDS: PREGABALIN 300 MG PO SCH ×2 (07:43→20:41)
[2020-12-10] MEDS: INSULIN ASPART SQ SCH ×3 (07:44→18:17)
[2020-12-10] MEDS: COLCHICINE 0.6 MG PO SCH (07:44)
[2020-12-10] MEDS: [UNRECOGNIZED DRUG - OTHER] INH SCH (07:46)
[2020-12-10] MEDS: SALMETEROL PO SCH ×2 (07:46→20:40)
[2020-12-10] MEDS: TIOTROPIUM INH SCH (07:46)
[2020-12-10] MEDS: FLUTICASONE PO SCH ×2 (07:46→20:40)
[2020-12-10] MEDS: [UNRECOGNIZED DRUG - OTHER] SUBCUT SCH (20:40)
[2020-12-10] MEDS: INSULIN GLARGINE SUBCUT SCH (20:40)
[2020-12-11] MEDS: PREGABALIN 300 MG PO SCH ×2 (09:35→20:58)
[2020-12-11] MEDS: [UNRECOGNIZED DRUG - OTHER] INH SCH (09:36)
[2020-12-11] MEDS: TIOTROPIUM INH SCH (09:36)
[2020-12-11] MEDS: Multivitamins with Iron/Calcium/Folic Acid/Minerals Tab PO SCH (09:36)
[2020-12-11] MEDS: COLCHICINE 0.6 MG PO SCH (09:37)
[2020-12-11] MEDS: amLODIPine 5 MG Tab (OWN SUPPLY) PO SCH (09:37)
[2020-12-11] MEDS: LOSARTAN POTASSIUM PO SCH (09:37)
[2020-12-11] MEDS: FLUTICASONE PO SCH ×2 (09:38→20:41)
[2020-12-11] MEDS: Tamsulosin 0.4 MG Cap.ER (OWN SUPPLY) PO SCH (09:38)
[2020-12-11] MEDS: SALMETEROL PO SCH ×2 (09:38→20:41)
[2020-12-11] MEDS: HYDROCHLOROTHIAZIDE 50 MG PO SCH (09:38)
[2020-12-11] MEDS: INSULIN ASPART SQ SCH ×3 (09:40→17:54)
[2020-12-11] MEDS: Omeprazole 20 MG Cap.CR PO SCH ×2 (09:40→17:54)
[2020-12-11] MEDS: INSULIN GLARGINE SUBCUT SCH (20:55)
[2020-12-11] MEDS: [UNRECOGNIZED DRUG - OTHER] SUBCUT SCH (20:55)
[2020-12-12] MEDS: Acetaminophen 325 MG Tab PO PRN (02:15)
[2020-12-12] MEDS: Albuterol/Ipratropium 3.0-0.5 MG/3 ML Neb Soln (OWN SUPPLY) NEB PRN (03:55)
[2020-12-12] MEDS: Omeprazole 20 MG Cap.CR PO SCH ×2 (06:32→17:43)
[2020-12-12] MEDS: Multivitamins with Iron/Calcium/Folic Acid/Minerals Tab PO SCH (07:52)
[2020-12-12] MEDS: HYDROCHLOROTHIAZIDE 50 MG PO SCH (07:57)
[2020-12-12] MEDS: SALMETEROL PO SCH ×2 (07:57→20:59)
[2020-12-12] MEDS: LOSARTAN POTASSIUM PO SCH (07:57)
[2020-12-12] MEDS: INSULIN ASPART SQ SCH ×3 (07:57→17:43)
[2020-12-12] MEDS: FLUTICASONE PO SCH ×2 (07:57→20:59)
[2020-12-12] MEDS: Tamsulosin 0.4 MG Cap.ER (OWN SUPPLY) PO SCH (07:57)
[2020-12-12] MEDS: COLCHICINE 0.6 MG PO SCH (07:57)
[2020-12-12] MEDS: PREGABALIN 300 MG PO SCH ×2 (07:59→21:00)
[2020-12-12] MEDS: amLODIPine 10 MG Tab PO SCH (07:59)
[2020-12-12] MEDS: TIOTROPIUM INH SCH (07:59)
[2020-12-12] MEDS: [UNRECOGNIZED DRUG - OTHER] INH SCH (07:59)
[2020-12-12] MEDS: INSULIN GLARGINE SUBCUT SCH (21:01)
[2020-12-12] MEDS: [UNRECOGNIZED DRUG - OTHER] SUBCUT SCH (21:01)
[2020-12-13] MEDS: Acetaminophen 325 MG Tab PO PRN (03:15)
[2020-12-13] MEDS: Omeprazole 20 MG Cap.CR PO SCH ×2 (07:30→22:16)
[2020-12-13] MEDS: Multivitamins with Iron/Calcium/Folic Acid/Minerals Tab PO SCH (09:01)
[2020-12-13] MEDS: COLCHICINE 0.6 MG PO SCH (09:03)
[2020-12-13] MEDS: Tamsulosin 0.4 MG Cap.ER (OWN SUPPLY) PO SCH (09:05)
[2020-12-13] MEDS: HYDROCHLOROTHIAZIDE 50 MG PO SCH (09:06)
[2020-12-13] MEDS: LOSARTAN POTASSIUM PO SCH (09:06)
[2020-12-13] MEDS: PREGABALIN 300 MG PO SCH ×2 (09:07→22:02)
[2020-12-13] MEDS: INSULIN ASPART SQ SCH ×3 (09:07→19:30)
[2020-12-13] MEDS: SALMETEROL PO SCH ×2 (09:07→22:10)
[2020-12-13] MEDS: FLUTICASONE PO SCH ×2 (09:07→22:10)
[2020-12-13] MEDS: amLODIPine 10 MG Tab PO SCH (09:10)
[2020-12-13] MEDS: TIOTROPIUM INH SCH (09:11)
[2020-12-13] MEDS: [UNRECOGNIZED DRUG - OTHER] INH SCH (09:11)
[2020-12-13] MEDS: [UNRECOGNIZED DRUG - OTHER] SUBCUT SCH (22:09)
[2020-12-13] MEDS: INSULIN GLARGINE SUBCUT SCH (22:09)
[2020-12-14] MEDS: amLODIPine 10 MG Tab PO SCH (10:13)
[2020-12-14] MEDS: Tamsulosin 0.4 MG Cap.ER (OWN SUPPLY) PO SCH (10:13)
[2020-12-14] MEDS: HYDROCHLOROTHIAZIDE 50 MG PO SCH (10:14)
[2020-12-14] MEDS: LOSARTAN POTASSIUM PO SCH (10:14)
[2020-12-14] MEDS: Omeprazole 20 MG Cap.CR PO SCH ×2 (10:15→18:01)
[2020-12-14] MEDS: PREGABALIN 300 MG PO SCH ×2 (10:16→22:09)
[2020-12-14] MEDS: Multivitamins with Iron/Calcium/Folic Acid/Minerals Tab PO SCH (10:16)
[2020-12-14] MEDS: [UNRECOGNIZED DRUG - OTHER] INH SCH (10:19)
[2020-12-14] MEDS: TIOTROPIUM INH SCH (10:19)
[2020-12-14] MEDS: SALMETEROL PO SCH ×2 (10:20→22:08)
[2020-12-14] MEDS: FLUTICASONE PO SCH ×2 (10:20→22:08)
[2020-12-14] MEDS: INSULIN ASPART SQ SCH ×3 (10:29→18:01)
[2020-12-14] MEDS: [UNRECOGNIZED DRUG - OTHER] SUBCUT SCH (22:10)
[2020-12-14] MEDS: INSULIN GLARGINE SUBCUT SCH (22:10)
[2020-12-15] MEDS: Acetaminophen 325 MG Tab PO PRN (04:53)
[2020-12-15] MEDS: Omeprazole 20 MG Cap.CR PO SCH ×2 (07:04→16:54)
[2020-12-15] MEDS: FLUTICASONE PO SCH ×2 (08:55→19:52)
[2020-12-15] MEDS: SALMETEROL PO SCH ×2 (08:55→19:52)
[2020-12-15] MEDS: TIOTROPIUM INH SCH (08:56)
[2020-12-15] MEDS: [UNRECOGNIZED DRUG - OTHER] INH SCH (08:56)
[2020-12-15] MEDS: PREGABALIN 300 MG PO SCH ×2 (08:57→20:01)
[2020-12-15] MEDS: Multivitamins with Iron/Calcium/Folic Acid/Minerals Tab PO SCH (08:58)
[2020-12-15] MEDS: Tamsulosin 0.4 MG Cap.ER (OWN SUPPLY) PO SCH (08:58)
[2020-12-15] MEDS: HYDROCHLOROTHIAZIDE 50 MG PO SCH (08:58)
[2020-12-15] MEDS: LOSARTAN POTASSIUM PO SCH (08:59)
[2020-12-15] MEDS: amLODIPine 10 MG Tab PO SCH (08:59)
[2020-12-15] MEDS: INSULIN ASPART SQ SCH ×4 (09:00→17:02)
[2020-12-15] MEDS: [UNRECOGNIZED DRUG - OTHER] SUBCUT SCH (20:17)
[2020-12-15] MEDS: INSULIN GLARGINE SUBCUT SCH (20:17)
[2020-12-16] MEDS: Omeprazole 20 MG Cap.CR PO SCH ×2 (06:14→17:50)
[2020-12-16] MEDS: PREGABALIN 300 MG PO SCH ×2 (08:20→19:44)
[2020-12-16] MEDS: FLUTICASONE PO SCH ×2 (08:22→19:42)
[2020-12-16] MEDS: INSULIN ASPART SQ SCH ×3 (08:22→17:51)
[2020-12-16] MEDS: SALMETEROL PO SCH ×2 (08:22→19:42)
[2020-12-16] MEDS: [UNRECOGNIZED DRUG - OTHER] INH SCH (08:23)
[2020-12-16] MEDS: TIOTROPIUM INH SCH (08:23)
[2020-12-16] MEDS: Tamsulosin 0.4 MG Cap.ER (OWN SUPPLY) PO SCH (08:24)
[2020-12-16] MEDS: amLODIPine 10 MG Tab PO SCH (08:24)
[2020-12-16] MEDS: LOSARTAN POTASSIUM PO SCH (08:24)
[2020-12-16] MEDS: Multivitamins with Iron/Calcium/Folic Acid/Minerals Tab PO SCH (08:25)
[2020-12-16] MEDS: HYDROCHLOROTHIAZIDE 50 MG PO SCH (08:25)
[2020-12-16] MEDS: Melatonin 3 MG Tab PO PRN (19:47)
[2020-12-16] MEDS: [UNRECOGNIZED DRUG - OTHER] SUBCUT SCH (22:13)
[2020-12-16] MEDS: INSULIN GLARGINE SUBCUT SCH (22:13)
[2020-12-16] MEDS: Albuterol/Ipratropium 3.0-0.5 MG/3 ML Neb Soln (OWN SUPPLY) NEB PRN (22:23)
[2020-12-17] MEDS: Omeprazole 20 MG Cap.CR PO SCH ×2 (08:11→17:40)
[2020-12-17] MEDS: Multivitamins with Iron/Calcium/Folic Acid/Minerals Tab PO SCH (08:11)
[2020-12-17] MEDS: PREGABALIN 300 MG PO SCH ×2 (08:12→20:57)
[2020-12-17] MEDS: Tamsulosin 0.4 MG Cap.ER (OWN SUPPLY) PO SCH (08:12)
[2020-12-17] MEDS: LOSARTAN POTASSIUM PO SCH (08:12)
[2020-12-17] MEDS: HYDROCHLOROTHIAZIDE 50 MG PO SCH (08:13)
[2020-12-17] MEDS: SALMETEROL PO SCH ×2 (08:13→20:57)
[2020-12-17] MEDS: TIOTROPIUM INH SCH (08:13)
[2020-12-17] MEDS: amLODIPine 10 MG Tab PO SCH (08:13)
[2020-12-17] MEDS: FLUTICASONE PO SCH ×2 (08:13→20:57)
[2020-12-17] MEDS: [UNRECOGNIZED DRUG - OTHER] INH SCH (08:13)
[2020-12-17] MEDS: INSULIN ASPART SQ SCH ×3 (08:18→18:27)
[2020-12-17] MEDS ORDERED: Insulin Lispro Protamine/Lispro 75-25 100 Units/ML 10 ML Vial SUBCUT STA (19:50)
[2020-12-17] MEDS: INSULIN GLARGINE SUBCUT SCH (20:53)
[2020-12-17] MEDS: [UNRECOGNIZED DRUG - OTHER] SUBCUT SCH (20:53)
[2020-12-17] MEDS: Ibuprofen 200 MG Tab PO PRN (23:54)
[2020-12-18 07:24] LABS: BARBITURATE SCREEN,URINE NEGATIVE (NEGATIVE); BENZODIAZEPINES SCREEN,URINE NEGATIVE (NEGATIVE); METHAMPHETAMINE SCREEN, URINE NEGATIVE (NEGATIVE); THC SCREEN,URINE 50 NG/ML NEGATIVE (NEGATIVE)
[2020-12-18 07:25] LABS: BUPRENORPHINE SCREEN,URINE NEGATIVE (NEGATIVE)
[2020-12-18] MEDS: Multivitamins with Iron/Calcium/Folic Acid/Minerals Tab PO SCH (10:46)
[2020-12-18] MEDS: Omeprazole 20 MG Cap.CR PO SCH ×2 (10:46→17:15)
[2020-12-18] MEDS: HYDROCHLOROTHIAZIDE 50 MG PO SCH (10:50)
[2020-12-18] MEDS: amLODIPine 10 MG Tab PO SCH (10:51)
[2020-12-18] MEDS: [UNRECOGNIZED DRUG - OTHER] INH SCH (10:51)
[2020-12-18] MEDS: LOSARTAN POTASSIUM PO SCH (10:51)
[2020-12-18] MEDS: TIOTROPIUM INH SCH (10:51)
[2020-12-18] MEDS: Tamsulosin 0.4 MG Cap.ER (OWN SUPPLY) PO SCH (10:51)
[2020-12-18] MEDS: SALMETEROL PO SCH ×2 (10:52→20:27)
[2020-12-18] MEDS: INSULIN ASPART SQ SCH ×3 (10:52→17:13)
[2020-12-18] MEDS: FLUTICASONE PO SCH ×2 (10:52→20:27)
[2020-12-18] MEDS: PREGABALIN 300 MG PO SCH ×2 (10:52→20:28)
[2020-12-18] MEDS: [UNRECOGNIZED DRUG - OTHER] SUBCUT SCH (20:26)
[2020-12-18] MEDS: INSULIN GLARGINE SUBCUT SCH (20:26)
[2020-12-19] MEDS: Ibuprofen 200 MG Tab PO PRN (00:06)
[2020-12-19 07:34] LABS: BARBITURATE SCREEN,URINE NEGATIVE (NEGATIVE); BENZODIAZEPINES SCREEN,URINE NEGATIVE (NEGATIVE); BUPRENORPHINE SCREEN,URINE NEGATIVE (NEGATIVE); METHAMPHETAMINE SCREEN, URINE NEGATIVE (NEGATIVE); THC SCREEN,URINE 50 NG/ML NEGATIVE (NEGATIVE)
[2020-12-19] MEDS: Omeprazole 20 MG Cap.CR PO SCH ×2 (10:51→17:33)
[2020-12-19] MEDS: Multivitamins with Iron/Calcium/Folic Acid/Minerals Tab PO SCH (10:51)
[2020-12-19] MEDS: TIOTROPIUM INH SCH (10:55)
[2020-12-19] MEDS: PREGABALIN 300 MG PO SCH ×2 (10:55→21:09)
[2020-12-19] MEDS: FLUTICASONE PO SCH ×2 (10:55→21:11)
[2020-12-19] MEDS: Tamsulosin 0.4 MG Cap.ER (OWN SUPPLY) PO SCH (10:55)
[2020-12-19] MEDS: SALMETEROL PO SCH ×2 (10:55→21:11)
[2020-12-19] MEDS: [UNRECOGNIZED DRUG - OTHER] INH SCH (10:55)
[2020-12-19] MEDS: HYDROCHLOROTHIAZIDE 50 MG PO SCH (10:56)
[2020-12-19] MEDS: amLODIPine 10 MG Tab PO SCH (10:56)
[2020-12-19] MEDS: INSULIN ASPART SQ SCH ×3 (10:56→17:33)
[2020-12-19] MEDS: LOSARTAN POTASSIUM PO SCH (10:56)
[2020-12-19] MEDS: INSULIN GLARGINE SUBCUT SCH (21:10)
[2020-12-19] MEDS: [UNRECOGNIZED DRUG - OTHER] SUBCUT SCH (21:10)
[2020-12-20] MEDS: Acetaminophen 325 MG Tab PO PRN ×2 (05:28→23:26)
[2020-12-20] MEDS: amLODIPine 10 MG Tab PO SCH (10:57)
[2020-12-20] MEDS: Omeprazole 20 MG Cap.CR PO SCH ×2 (10:57→17:38)
[2020-12-20] MEDS: Multivitamins with Iron/Calcium/Folic Acid/Minerals Tab PO SCH (10:57)
[2020-12-20] MEDS: HYDROCHLOROTHIAZIDE 50 MG PO SCH (10:58)
[2020-12-20] MEDS: LOSARTAN POTASSIUM PO SCH (10:58)
[2020-12-20] MEDS: Tamsulosin 0.4 MG Cap.ER (OWN SUPPLY) PO SCH (10:58)
[2020-12-20] MEDS: INSULIN ASPART SQ SCH ×3 (10:59→17:39)
[2020-12-20] MEDS: PREGABALIN 300 MG PO SCH ×2 (10:59→20:21)
[2020-12-20] MEDS: TIOTROPIUM INH SCH (11:01)
[2020-12-20] MEDS: FLUTICASONE PO SCH ×2 (11:01→20:19)
[2020-12-20] MEDS: [UNRECOGNIZED DRUG - OTHER] INH SCH (11:01)
[2020-12-20] MEDS: SALMETEROL PO SCH ×2 (11:01→20:19)
[2020-12-20] MEDS: Albuterol/Ipratropium 3.0-0.5 MG/3 ML Neb Soln (OWN SUPPLY) NEB PRN (13:18)
[2020-12-20] MEDS: [UNRECOGNIZED DRUG - OTHER] SUBCUT SCH (20:23)
[2020-12-20] MEDS: INSULIN GLARGINE SUBCUT SCH (20:23)
[2020-12-21] MEDS: Albuterol/Ipratropium 3.0-0.5 MG/3 ML Neb Soln (OWN SUPPLY) NEB PRN (00:53)
[2020-12-21] MEDS: PREGABALIN 300 MG PO SCH ×2 (09:49→20:18)
[2020-12-21] MEDS: [UNRECOGNIZED DRUG - OTHER] INH SCH (09:50)
[2020-12-21] MEDS: FLUTICASONE PO SCH ×2 (09:50→20:18)
[2020-12-21] MEDS: TIOTROPIUM INH SCH (09:50)
[2020-12-21] MEDS: SALMETEROL PO SCH ×2 (09:50→20:18)
[2020-12-21] MEDS: amLODIPine 10 MG Tab PO SCH (09:51)
[2020-12-21] MEDS: LOSARTAN POTASSIUM PO SCH (09:52)
[2020-12-21] MEDS: Tamsulosin 0.4 MG Cap.ER (OWN SUPPLY) PO SCH (09:52)
[2020-12-21] MEDS: HYDROCHLOROTHIAZIDE 50 MG PO SCH (09:52)
[2020-12-21] MEDS: Omeprazole 20 MG Cap.CR PO SCH ×2 (09:56→18:09)
[2020-12-21] MEDS: Multivitamins with Iron/Calcium/Folic Acid/Minerals Tab PO SCH (09:56)
[2020-12-21] MEDS: INSULIN ASPART SQ SCH ×3 (10:27→18:09)
[2020-12-21] MEDS: [UNRECOGNIZED DRUG - OTHER] SUBCUT SCH (20:20)
[2020-12-21] MEDS: INSULIN GLARGINE SUBCUT SCH (20:20)
[2020-12-22] MEDS: PREGABALIN 300 MG PO SCH ×2 (11:12→20:44)
[2020-12-22] MEDS: FLUTICASONE PO SCH ×2 (11:13→20:43)
[2020-12-22] MEDS: SALMETEROL PO SCH ×2 (11:13→20:43)
[2020-12-22] MEDS: TIOTROPIUM INH SCH (11:15)
[2020-12-22] MEDS: [UNRECOGNIZED DRUG - OTHER] INH SCH (11:15)
[2020-12-22] MEDS: amLODIPine 10 MG Tab PO SCH (11:16)
[2020-12-22] MEDS: HYDROCHLOROTHIAZIDE 50 MG PO SCH (11:16)
[2020-12-22] MEDS: Tamsulosin 0.4 MG Cap.ER (OWN SUPPLY) PO SCH (11:16)
[2020-12-22] MEDS: LOSARTAN POTASSIUM PO SCH (11:16)
[2020-12-22] MEDS: INSULIN ASPART SQ SCH ×4 (11:17→18:39)
[2020-12-22] MEDS: Omeprazole 20 MG Cap.CR PO SCH ×3 (11:23→16:55)
[2020-12-22] MEDS: Multivitamins with Iron/Calcium/Folic Acid/Minerals Tab PO SCH (11:23)
[2020-12-22] MEDS: INSULIN GLARGINE SUBCUT SCH (20:46)
[2020-12-22] MEDS: [UNRECOGNIZED DRUG - OTHER] SUBCUT SCH (20:46)
[2020-12-22] MEDS: Albuterol/Ipratropium 3.0-0.5 MG/3 ML Neb Soln (OWN SUPPLY) NEB PRN (23:46)
[2020-12-23] MEDS: [UNRECOGNIZED DRUG - OTHER] INH SCH (09:43)
[2020-12-23] MEDS: FLUTICASONE PO SCH ×2 (09:43→19:39)
[2020-12-23] MEDS: SALMETEROL PO SCH ×2 (09:43→19:39)
[2020-12-23] MEDS: TIOTROPIUM INH SCH (09:43)
[2020-12-23] MEDS: PREGABALIN 300 MG PO SCH ×2 (09:46→19:39)
[2020-12-23] MEDS: INSULIN ASPART SQ SCH ×3 (09:48→17:51)
[2020-12-23] MEDS: Tamsulosin 0.4 MG Cap.ER (OWN SUPPLY) PO SCH (09:50)
[2020-12-23] MEDS: HYDROCHLOROTHIAZIDE 50 MG PO SCH (09:50)
[2020-12-23] MEDS: amLODIPine 10 MG Tab PO SCH (09:50)
[2020-12-23] MEDS: LOSARTAN POTASSIUM PO SCH (09:50)
[2020-12-23] MEDS: Omeprazole 20 MG Cap.CR PO SCH ×2 (09:53→17:16)
[2020-12-23] MEDS: Multivitamins with Iron/Calcium/Folic Acid/Minerals Tab PO SCH (09:53)
[2020-12-23] MEDS: Albuterol/Ipratropium 3.0-0.5 MG/3 ML Neb Soln (OWN SUPPLY) NEB PRN ×2 (13:07→19:37)
[2020-12-23] MEDS: INSULIN GLARGINE SUBCUT SCH (19:44)
[2020-12-23] MEDS: [UNRECOGNIZED DRUG - OTHER] SUBCUT SCH (19:44)
[2020-12-24] MEDS: Albuterol/Ipratropium 3.0-0.5 MG/3 ML Neb Soln (OWN SUPPLY) NEB PRN ×2 (03:57→20:58)
[2020-12-24] MEDS: LOSARTAN POTASSIUM PO SCH (08:13)
[2020-12-24] MEDS: Tamsulosin 0.4 MG Cap.ER (OWN SUPPLY) PO SCH (08:13)
[2020-12-24] MEDS: SALMETEROL PO SCH ×2 (08:14→20:56)
[2020-12-24] MEDS: FLUTICASONE PO SCH ×2 (08:14→20:56)
[2020-12-24] MEDS: HYDROCHLOROTHIAZIDE 50 MG PO SCH (08:14)
[2020-12-24] MEDS: INSULIN ASPART SQ SCH ×3 (08:14→17:46)
[2020-12-24] MEDS: amLODIPine 10 MG Tab PO SCH (08:15)
[2020-12-24] MEDS: PREGABALIN 300 MG PO SCH ×2 (08:15→20:57)
[2020-12-24] MEDS: Multivitamins with Iron/Calcium/Folic Acid/Minerals Tab PO SCH (08:16)
[2020-12-24] MEDS: TIOTROPIUM INH SCH (08:16)
[2020-12-24] MEDS: [UNRECOGNIZED DRUG - OTHER] INH SCH (08:16)
[2020-12-24] MEDS: Omeprazole 20 MG Cap.CR PO SCH ×2 (09:10→17:46)
[2020-12-24] MEDS: [UNRECOGNIZED DRUG - OTHER] SUBCUT SCH (20:54)
[2020-12-24] MEDS: INSULIN GLARGINE SUBCUT SCH (20:54)
[2020-12-25] MEDS: Acetaminophen 325 MG Tab PO PRN (01:32)
[2020-12-25] MEDS: [UNRECOGNIZED DRUG - OTHER] INH SCH (09:40)
[2020-12-25] MEDS: SALMETEROL PO SCH ×2 (09:40→20:22)
[2020-12-25] MEDS: Tamsulosin 0.4 MG Cap.ER (OWN SUPPLY) PO SCH (09:40)
[2020-12-25] MEDS: FLUTICASONE PO SCH ×2 (09:40→20:22)
[2020-12-25] MEDS: TIOTROPIUM INH SCH (09:40)
[2020-12-25] MEDS: HYDROCHLOROTHIAZIDE 50 MG PO SCH (09:41)
[2020-12-25] MEDS: PREGABALIN 300 MG PO SCH ×2 (09:41→20:22)
[2020-12-25] MEDS: LOSARTAN POTASSIUM PO SCH (09:47)
[2020-12-25] MEDS: INSULIN ASPART SQ SCH ×3 (09:48→17:36)
[2020-12-25] MEDS: Multivitamins with Iron/Calcium/Folic Acid/Minerals Tab PO SCH (09:48)
[2020-12-25] MEDS: amLODIPine 10 MG Tab PO SCH (09:48)
[2020-12-25] MEDS: Omeprazole 20 MG Cap.CR PO SCH ×2 (10:00→17:38)
[2020-12-25] MEDS: INSULIN GLARGINE SUBCUT SCH (20:23)
[2020-12-25] MEDS: [UNRECOGNIZED DRUG - OTHER] SUBCUT SCH (20:23)
[2020-12-26] MEDS: Tamsulosin 0.4 MG Cap.ER (OWN SUPPLY) PO SCH (09:08)
[2020-12-26] MEDS: HYDROCHLOROTHIAZIDE 50 MG PO SCH (09:09)
[2020-12-26] MEDS: INSULIN ASPART SQ SCH ×3 (09:09→17:30)
[2020-12-26] MEDS: FLUTICASONE PO SCH ×2 (09:09→19:44)
[2020-12-26] MEDS: SALMETEROL PO SCH ×2 (09:09→19:44)
[2020-12-26] MEDS: LOSARTAN POTASSIUM PO SCH (09:10)
[2020-12-26] MEDS: PREGABALIN 300 MG PO SCH ×2 (09:11→19:46)
[2020-12-26] MEDS: [UNRECOGNIZED DRUG - OTHER] INH SCH (09:12)
[2020-12-26] MEDS: Multivitamins with Iron/Calcium/Folic Acid/Minerals Tab PO SCH (09:12)
[2020-12-26] MEDS: Omeprazole 20 MG Cap.CR PO SCH ×2 (09:12→17:30)
[2020-12-26] MEDS: TIOTROPIUM INH SCH (09:12)
[2020-12-26] MEDS: amLODIPine 10 MG Tab PO SCH (09:20)
[2020-12-26] MEDS: [UNRECOGNIZED DRUG - OTHER] SUBCUT SCH (19:46)
[2020-12-26] MEDS: INSULIN GLARGINE SUBCUT SCH (19:46)
[2020-12-27] MEDS: Albuterol/Ipratropium 3.0-0.5 MG/3 ML Neb Soln (OWN SUPPLY) NEB PRN (03:51)
[2020-12-27] MEDS: TIOTROPIUM INH SCH (08:06)
[2020-12-27] MEDS: SALMETEROL PO SCH ×2 (08:06→19:49)
[2020-12-27] MEDS: FLUTICASONE PO SCH ×2 (08:06→19:49)
[2020-12-27] MEDS: [UNRECOGNIZED DRUG - OTHER] INH SCH (08:06)
[2020-12-27] MEDS: amLODIPine 10 MG Tab PO SCH (08:08)
[2020-12-27] MEDS: Omeprazole 20 MG Cap.CR PO SCH ×2 (08:08→18:00)
[2020-12-27] MEDS: Multivitamins with Iron/Calcium/Folic Acid/Minerals Tab PO SCH (08:08)
[2020-12-27] MEDS: LOSARTAN POTASSIUM PO SCH (08:11)
[2020-12-27] MEDS: Tamsulosin 0.4 MG Cap.ER (OWN SUPPLY) PO SCH (08:12)
[2020-12-27] MEDS: INSULIN ASPART SQ SCH ×3 (08:12→18:00)
[2020-12-27] MEDS: PREGABALIN 300 MG PO SCH ×2 (08:12→19:49)
[2020-12-27] MEDS: HYDROCHLOROTHIAZIDE 50 MG PO SCH (08:12)
[2020-12-27] MEDS: INSULIN GLARGINE SUBCUT SCH (19:50)
[2020-12-27] MEDS: [UNRECOGNIZED DRUG - OTHER] SUBCUT SCH (19:50)
[2020-12-28] MEDS: Omeprazole 20 MG Cap.CR PO SCH ×2 (08:41→17:33)
[2020-12-28] MEDS: Multivitamins with Iron/Calcium/Folic Acid/Minerals Tab PO SCH (08:41)
[2020-12-28] MEDS: PREGABALIN 300 MG PO SCH ×2 (08:42→20:41)
[2020-12-28] MEDS: HYDROCHLOROTHIAZIDE 50 MG PO SCH (08:46)
[2020-12-28] MEDS: LOSARTAN POTASSIUM PO SCH (08:46)
[2020-12-28] MEDS: Tamsulosin 0.4 MG Cap.ER (OWN SUPPLY) PO SCH (08:46)
[2020-12-28] MEDS: FLUTICASONE PO SCH ×2 (08:47→20:40)
[2020-12-28] MEDS: amLODIPine 10 MG Tab PO SCH (08:47)
[2020-12-28] MEDS: INSULIN ASPART SQ SCH ×3 (08:47→18:42)
[2020-12-28] MEDS: TIOTROPIUM INH SCH (08:47)
[2020-12-28] MEDS: [UNRECOGNIZED DRUG - OTHER] INH SCH (08:47)
[2020-12-28] MEDS: SALMETEROL PO SCH ×2 (08:47→20:40)
[2020-12-28] MEDS: Albuterol/Ipratropium 3.0-0.5 MG/3 ML Neb Soln (OWN SUPPLY) NEB PRN (12:58)
[2020-12-28] MEDS: [UNRECOGNIZED DRUG - OTHER] SUBCUT SCH (20:40)
[2020-12-28] MEDS: INSULIN GLARGINE SUBCUT SCH (20:40)
[2020-12-29] MEDS: Omeprazole 20 MG Cap.CR PO SCH ×2 (08:17→17:50)
[2020-12-29] MEDS: Multivitamins with Iron/Calcium/Folic Acid/Minerals Tab PO SCH (08:17)
[2020-12-29] MEDS: amLODIPine 10 MG Tab PO SCH (08:18)
[2020-12-29] MEDS: PREGABALIN 300 MG PO SCH ×2 (08:18→20:17)
[2020-12-29] MEDS: HYDROCHLOROTHIAZIDE 50 MG PO SCH (08:18)
[2020-12-29] MEDS: Tamsulosin 0.4 MG Cap.ER (OWN SUPPLY) PO SCH (08:23)
[2020-12-29] MEDS: LOSARTAN POTASSIUM PO SCH (08:23)
[2020-12-29] MEDS: FLUTICASONE PO SCH ×2 (08:24→20:17)
[2020-12-29] MEDS: SALMETEROL PO SCH ×2 (08:24→20:17)
[2020-12-29] MEDS: INSULIN ASPART SQ SCH ×3 (10:10→17:51)
[2020-12-29] MEDS: TIOTROPIUM INH SCH (10:11)
[2020-12-29] MEDS: [UNRECOGNIZED DRUG - OTHER] INH SCH (10:11)
[2020-12-29] MEDS: INSULIN GLARGINE SUBCUT SCH (20:16)
[2020-12-29] MEDS: [UNRECOGNIZED DRUG - OTHER] SUBCUT SCH (20:16)
[2020-12-30] MEDS: PREGABALIN 300 MG PO SCH ×2 (09:35→21:09)
[2020-12-30] MEDS: FLUTICASONE PO SCH ×2 (09:35→21:08)
[2020-12-30] MEDS: [UNRECOGNIZED DRUG - OTHER] INH SCH (09:35)
[2020-12-30] MEDS: TIOTROPIUM INH SCH (09:35)
[2020-12-30] MEDS: SALMETEROL PO SCH ×2 (09:35→21:08)
[2020-12-30] MEDS: INSULIN ASPART SQ SCH ×3 (09:35→21:05)
[2020-12-30] MEDS: Tamsulosin 0.4 MG Cap.ER (OWN SUPPLY) PO SCH (09:38)
[2020-12-30] MEDS: HYDROCHLOROTHIAZIDE 50 MG PO SCH (09:40)
[2020-12-30] MEDS: amLODIPine 10 MG Tab PO SCH (09:40)
[2020-12-30] MEDS: LOSARTAN POTASSIUM PO SCH (09:40)
[2020-12-30] MEDS: Omeprazole 20 MG Cap.CR PO SCH ×2 (09:41→22:30)
[2020-12-30] MEDS: Multivitamins with Iron/Calcium/Folic Acid/Minerals Tab PO SCH (09:41)
[2020-12-30] MEDS: INSULIN GLARGINE SUBCUT SCH (21:07)
[2020-12-30] MEDS: [UNRECOGNIZED DRUG - OTHER] SUBCUT SCH (21:07)
[2020-12-30] MEDS: Acetaminophen 325 MG Tab PO PRN (23:59)
[2020-12-31] MEDS: [UNRECOGNIZED DRUG - OTHER] INH SCH (08:30)
[2020-12-31] MEDS: TIOTROPIUM INH SCH (08:30)
[2020-12-31] MEDS: SALMETEROL PO SCH ×2 (08:30→19:56)
[2020-12-31] MEDS: FLUTICASONE PO SCH ×2 (08:30→19:56)
[2020-12-31] MEDS: Multivitamins with Iron/Calcium/Folic Acid/Minerals Tab PO SCH (08:30)
[2020-12-31] MEDS: Omeprazole 20 MG Cap.CR PO SCH ×2 (08:30→17:38)
[2020-12-31] MEDS: Tamsulosin 0.4 MG Cap.ER (OWN SUPPLY) PO SCH (08:31)
[2020-12-31] MEDS: PREGABALIN 300 MG PO SCH ×2 (08:31→20:00)
[2020-12-31] MEDS: INSULIN ASPART SQ SCH ×3 (08:31→17:40)
[2020-12-31] MEDS: LOSARTAN POTASSIUM PO SCH (08:34)
[2020-12-31] MEDS: amLODIPine 10 MG Tab PO SCH (08:34)
[2020-12-31] MEDS: HYDROCHLOROTHIAZIDE 50 MG PO SCH (08:34)
[2020-12-31] MEDS: [UNRECOGNIZED DRUG - OTHER] SUBCUT SCH (19:57)
[2020-12-31] MEDS: INSULIN GLARGINE SUBCUT SCH (19:57)
[2021-01-01] MEDS: Tamsulosin 0.4 MG Cap.ER (OWN SUPPLY) PO SCH (10:18)
[2021-01-01] MEDS: [UNRECOGNIZED DRUG - OTHER] INH SCH (10:18)
[2021-01-01] MEDS: Multivitamins with Iron/Calcium/Folic Acid/Minerals Tab PO SCH (10:18)
[2021-01-01] MEDS: TIOTROPIUM INH SCH (10:18)
[2021-01-01] MEDS: FLUTICASONE PO SCH ×2 (10:18→19:54)
[2021-01-01] MEDS: SALMETEROL PO SCH ×2 (10:18→19:54)
[2021-01-01] MEDS: PREGABALIN 300 MG PO SCH ×2 (10:18→19:54)
[2021-01-01] MEDS: LOSARTAN POTASSIUM PO SCH (10:23)
[2021-01-01] MEDS: HYDROCHLOROTHIAZIDE 50 MG PO SCH (10:23)
[2021-01-01] MEDS: amLODIPine 10 MG Tab PO SCH (10:23)
[2021-01-01] MEDS: Omeprazole 20 MG Cap.CR PO SCH ×2 (10:29→17:15)
[2021-01-01] MEDS: INSULIN ASPART SQ SCH ×3 (11:35→17:19)
[2021-01-01] MEDS: INSULIN GLARGINE SUBCUT SCH (20:13)
[2021-01-01] MEDS: [UNRECOGNIZED DRUG - OTHER] SUBCUT SCH (20:13)
[2021-01-02] MEDS: Multivitamins with Iron/Calcium/Folic Acid/Minerals Tab PO SCH (07:50)
[2021-01-02] MEDS: INSULIN ASPART SQ SCH ×3 (07:51→17:48)
[2021-01-02] MEDS: amLODIPine 10 MG Tab PO SCH (07:51)
[2021-01-02] MEDS: PREGABALIN 300 MG PO SCH ×2 (07:51→19:36)
[2021-01-02] MEDS: TIOTROPIUM INH SCH (07:53)
[2021-01-02] MEDS: SALMETEROL PO SCH ×2 (07:53→19:36)
[2021-01-02] MEDS: FLUTICASONE PO SCH ×2 (07:53→19:36)
[2021-01-02] MEDS: [UNRECOGNIZED DRUG - OTHER] INH SCH (07:53)
[2021-01-02] MEDS: LOSARTAN POTASSIUM PO SCH (07:53)
[2021-01-02] MEDS: HYDROCHLOROTHIAZIDE 50 MG PO SCH (07:53)
[2021-01-02] MEDS: Tamsulosin 0.4 MG Cap.ER (OWN SUPPLY) PO SCH (07:53)
[2021-01-02] MEDS: Omeprazole 20 MG Cap.CR PO SCH ×2 (08:05→17:48)
[2021-01-02] MEDS: [UNRECOGNIZED DRUG - OTHER] SUBCUT SCH (19:37)
[2021-01-02] MEDS: INSULIN GLARGINE SUBCUT SCH (19:37)
[2021-01-03] MEDS: Multivitamins with Iron/Calcium/Folic Acid/Minerals Tab PO SCH (13:13)
[2021-01-03] MEDS: FLUTICASONE PO SCH ×2 (13:14→20:10)
[2021-01-03] MEDS: SALMETEROL PO SCH ×2 (13:14→20:10)
[2021-01-03] MEDS: [UNRECOGNIZED DRUG - OTHER] INH SCH (13:14)
[2021-01-03] MEDS: TIOTROPIUM INH SCH (13:14)
[2021-01-03] MEDS: Tamsulosin 0.4 MG Cap.ER (OWN SUPPLY) PO SCH (13:19)
[2021-01-03] MEDS: HYDROCHLOROTHIAZIDE 50 MG PO SCH (13:19)
[2021-01-03] MEDS: LOSARTAN POTASSIUM PO SCH (13:19)
[2021-01-03] MEDS: amLODIPine 10 MG Tab PO SCH (13:19)
[2021-01-03] MEDS: INSULIN ASPART SQ SCH ×3 (13:20→18:54)
[2021-01-03] MEDS: PREGABALIN 300 MG PO SCH ×2 (13:22→20:11)
[2021-01-03] MEDS: Omeprazole 20 MG Cap.CR PO SCH ×2 (13:25→16:00)
[2021-01-03] MEDS: INSULIN GLARGINE SUBCUT SCH (20:11)
[2021-01-03] MEDS: [UNRECOGNIZED DRUG - OTHER] SUBCUT SCH (20:11)
[2021-01-04] MEDS: INSULIN ASPART SQ SCH ×2 (07:50→12:06)
[2021-01-04] MEDS: LOSARTAN POTASSIUM PO SCH (07:54)
[2021-01-04] MEDS: amLODIPine 10 MG Tab PO SCH (07:54)
[2021-01-04] MEDS: TIOTROPIUM INH SCH (07:55)
[2021-01-04] MEDS: HYDROCHLOROTHIAZIDE 50 MG PO SCH (07:55)
[2021-01-04] MEDS: [UNRECOGNIZED DRUG - OTHER] INH SCH (07:55)
[2021-01-04] MEDS: Tamsulosin 0.4 MG Cap.ER (OWN SUPPLY) PO SCH (07:55)
[2021-01-04] MEDS: PREGABALIN 300 MG PO SCH (07:57)
[2021-01-04] MEDS: Multivitamins with Iron/Calcium/Folic Acid/Minerals Tab PO SCH (07:57)
[2021-01-04] MEDS: FLUTICASONE PO SCH (07:57)
[2021-01-04] MEDS: SALMETEROL PO SCH (07:57)
[2021-01-04] MEDS ORDERED: Lisinopril 5 MG Tab PO SCH (09:00)
--- NOTE | 2021-01-04 10:19 | PCM.DCSUM1 ---
Discharge Summary - Hospital Course Free Text/Narrative:: Brady is a 60-year-old male with a past medical history of uncontrolled type 2 diabetes, chronic ulcerations of the foot, status post BKA on the right, hypertension, hyperlipidemia, COPD, chronic low back pain, substance use disorder, GERD who was admitted swing-bed status on 11/16/2020 after he refused to go to the [facility] as he did not want to be under isolation. [place] [facility] [place] [facility] for ongoing cares in regards to PT for strengthening and wound cares for his chronic ulcer. He does have a very difficult social situation with the patient being basically homeless and being shuffled from facility to facility over the last year. Over the course of his hospital stay he did have some improvement of his weakness. He has undergone some intermittent wound cares. Social work has been vitally important helping to plan for discharge. He has obtained a [place] identification card and has also been accepted for housing here in [place]. Hospital course has been only mildly complicated by some hyper and hypoglycemic episodes and changes to his insulin dosing have been made as appropriate. He has also been noted to be slightly hypertensive over the last couple weeks; he will continue on his norvasc, HCTZ, and losartan. Will add metoprolol 25mg SR as well. We will have plan to have him follow-up in the clinic in 2 weeks time to make sure things are going well at home. States that he may want to follow- up with his previous primary in [place] ([facility]). We will have him see [facility] at their office (not home-bound) for continued wound cares to the left foot 2-3 times a week. Diagnosis: Stroke: No - Discharge Data Discharge Date: 01/04/21 Discharge Disposition: Home, Self-Care 01 Condition: Good - Referral to Home Health Primary Care Physician: Fercho [facility]. Jenna Farah MD - Discharge Diagnosis/Problem(s) (1) HTN (hypertension) SNOMED Code(s): 73441872 ICD Code: I10 - ESSENTIAL (PRIMARY) HYPERTENSION Status: Acute Current Visit: Yes (2) Chronic diabetic ulcer of left foot determined by examination SNOMED Code(s): 504931746 ICD Code: E11.621 - TYPE 2 DIABETES MELLITUS WITH FOOT ULCER; L97.529 - NON- PRESSURE CHRONIC ULCER OTH PRT LEFT FOOT W UNSP SEVERITY Status: Acute C urrent Visit: Yes (3) Homelessness SNOMED Code(s): 91502721 ICD Code: Z59.0 - HOMELESSNESS Status: Acute Current Visit: Yes (4) Type 2 diabetes mellitus SNOMED Code(s): 32333436 ICD Code: E11.9 - TYPE 2 DIABETES MELLITUS WITHOUT COMPLICATIONS Status: Acute Current Visit: Yes Qualifiers: Diabetes mellitus residential insulin use: unspecified residential insulin use status Diabetes mellitus complication status: with other specified complication Qualified Code(s): E11.69 - Type 2 diabetes mellitus with other specified complication - Patient Summary/Data Consults: Consultations 11/16/20 17:34 Consult to Case Management/Box Worker [CONS] Routine OT Evaluation and Treatment [CONS] Routine PT Evaluation and Treatment [CONS] Routine - Patient Instructions Diet: Diabetic Diet Activity: As Tolerated Driving: Do Not Drive - Discharge Plan *PRESCRIPTION DRUG MONITORING PROGRAM REVIEWED*: No *COPY OF PRESCRIPTION DRUG MONITORING REPORT IN PATIENT JOSEPHINE: No Prescriptions/Med Rec: Ipratropium [Atrovent HFA] 1 inh PO TID #1 inhaler Losartan Potassium [Cozaar] 100 mg PO DAILY #30 Albuterol/Ipratropium [DuoNeb 3.0-0.5 MG/3 ML] 3 ml NEB Q4H PRN #1 PRN Reason: Shortness Of Breath Tamsulosin HCl [Flomax] 0.4 mg PO DAILY #30 Fluticasone Propion/Salmeterol [Fluticasone-Salmeterol 500-50] 1 inh PO BID #1 hydroCHLOROthiazide [Hydrochlorothiazide] 0 mg PO DAILY #30 Insulin Glarg,Human.Rec.Analog [Lantus] 63 unit SUBCUT BEDTIME #2 ml atorvaSTATin [Lipitor] 40 mg PO BEDTIME #30 Multivitamin with Minerals [Multivitamins with Minerals] 1 tab PO DAILY #30 amLODIPine [Norvasc] 10 mg PO DAILY #60 Insulin Aspart [Novolog Flexpen] 28 unit SQ TIDMEALS #2 Omeprazole 20 mg PO BIDAC #30 Pregabalin 300 mg PO BID #60 Albuterol [Proventil Neb Soln] 2.5 mg NEB Q4H PRN #1 PRN Reason: Shortness Of Breath Home Medications: Home Meds Acetaminophen 650 mg PO Q4H PRN 11/16/20 [History] Umeclidinium Butler [Incruse Ellipta] 1 inh PO DAILY 11/16/20 [History] Albuterol [Proventil Neb Soln] 2.5 mg NEB Q4H PRN #1 01/04/21 [Rx] Albuterol/Ipratropium [DuoNeb 3.0-0.5 MG/3 ML] 3 ml NEB Q4H PRN #1 01/04/21 [Rx] Fluticasone Propion/Salmeterol [Fluticasone-Salmeterol 500-50] 1 inh PO BID #1 01/04/21 [Rx] Insulin Aspart [Novolog Flexpen] 28 unit SQ TIDMEALS #2 01/04/21 [Rx] Insulin Glarg,Human.Rec.Analog [Lantus] 63 unit SUBCUT BEDTIME #2 ml 01/04/21 [Rx] Ipratropium [Atrovent HFA] 1 inh PO TID #1 inhaler 01/04/21 [Rx] Losartan Potassium [Cozaar] 100 mg PO DAILY #30 01/04/21 [Rx] Metoprolol Succinate 25 mg PO DAILY #30 tab.er.24h 01/04/21 [Rx] Multivitamin with Minerals [Multivitamins with Minerals] 1 tab PO DAILY #30 01/04/21 [Rx] Omeprazole 20 mg PO BIDAC #30 01/04/21 [Rx] Pregabalin 300 mg PO BID #60 01/04/21 [Rx] Tamsulosin HCl [Flomax] 0.4 mg PO DAILY #30 01/04/21 [Rx] amLODIPine [Norvasc] 10 mg PO DAILY #60 01/04/21 [Rx] atorvaSTATin [Lipitor] 40 mg PO BEDTIME #30 01/04/21 [Rx] hydroCHLOROthiazide [Hydrochlorothiazide] 0 mg PO DAILY #30 01/04/21 [Rx] Forms: ED Department Discharge Referrals: Maria Del Carmen Garvey MD [Physician] - - Discharge Summary/Plan Comment DC Time >30 min.: No Total # of Minutes for Discharge Time: 25 Discharge Summary/Plan Comment: Will continue all home meds, 30 day fills sent Adding metoprolol 25mg daily at time of D/C for BP F/u with PCP in 2 weeks time [facility] for wound cares of the left foot (at [facility]) 2-3 times a week - Review of Systems General: Reports: No Symptoms HEENT: Reports: No Symptoms Pulmonary: Reports: No Symptoms Cardiovascular: Reports: No Symptoms Gastrointestinal: Reports: No Symptoms Genitourinary: Reports: No Symptoms Musculoskeletal: Reports: Back Pain (chronic) Skin: Reports: No Symptoms Neurological: Reports: No Symptoms Psychiatric: Reports: No Symptoms - Patient Data Vitals - Most Recent: Last Vital Signs Temp 98 F 01/04/21 07:52 Pulse 93 01/04/21 07:52 Resp 16 01/04/21 07:52 BP 180/95 H 01/04/21 07:54 Pulse Ox 95 01/04/21 07:52 Weight - Most Recent: 278 lb I&O - Last 24 hours: Intake & Output 01/03/21 01/04/21 01/04/21 22:59 06:59 14:59 Intake Total 240 Balance 240 Lab Results - Last 24 hrs: Laboratory Results - last 24 hr 01/03/21 01/03/21 01/03/21 Range/Units 12:31 16:52 20:09 POC Glucose 278 H 224 H 319 H (70-99) mg/dL 01/04/21 Range/Units 07:43 POC Glucose 301 H (70-99) mg/dL Med Orders - Current: Current Medications Acetaminophen (Acetaminophen 325 Mg Tab) 650 mg PO Q4H PRN PRN Reason: Pain (mild 1-3) Last Admin: 12/30/20 23:59 Dose: 650 mg Documented by: Albuterol (Albuterol Hfa 18 Gm Inhaler (Own Supply)) 0 gm INH Q4H PRN PRN Reason: Shortness of Breath Last Admin: 01/03/21 16:49 Dose: 1 puff Documented by: Albuterol/Ipratropium (Albuterol/Ipratropium 3.0-0.5 Mg/3 Ml Neb Soln (Own Supply)) 3 ml NEB Q4HRRT PRN PRN Reason: Wheezing Last Admin: 12/28/20 12:58 Dose: 3 ml Documented by: Amlodipine Besylate (Amlodipine 10 Mg Tab) 10 mg PO DAILY MIGUEL ÁNGEL Last Admin: 01/04/21 07:54 Dose: 10 mg Documented by: Atorvastatin Calcium (Atorvastatin 40 Mg Tab (Own Supply)) 40 mg PO BEDTIME [facility] Last Admin: 01/03/21 20:10 Dose: 40 mg Documented by: Calcium Carbonate/Glycine (Calcium Carbonate 750 Mg Tab.Chew) 750 mg PO Q8H PRN PRN Reason: Dyspepsia Dextrose/Water (50% Dextrose In Water 50 Ml Syringe) 50 ml IVPUSH ASDIRECTED PRN PRN Reason: Hypoglycemia Glucagon (Glucagon,Human Recombinant 1 Mg Vial) 1 mg IM ASDIRECTED PRN PRN Reason: Hypoglycemia Ibuprofen (Ibuprofen 200 Mg Tab) 600 mg PO Q8H PRN PRN Reason: Pain/Fever Last Admin: 12/19/20 00:06 Dose: 600 mg Documented by: Insulin Glargine (Insulin Glarg,Human.Rec.Analog 100 Unit/Ml (Lantus): Own Supply) 63 unit SUBCUT BEDTIME [facility] Last Admin: 01/03/21 20:11 Dose: 63 units Documented by: Lisinopril (Lisinopril 5 Mg Tab) 5 mg PO DAILY [facility] Melatonin (Melatonin 3 Mg Tab) 6 mg PO BEDTIME PRN PRN Reason: Insomnia Last Admin: 12/16/20 19:47 Dose: 6 mg Documented by: Multivitamins/Minerals (Multivitamins With Iron/Calcium/Folic Acid/Minerals Tab) 1 tab PO DAILY [facility] Last Admin: 01/04/21 07:57 Dose: 1 tab Documented by: Nicotine (Nicotine 21 Mg/24 Hr Patch) 21 mg TRDERM DAILY PRN PRN Reason: nicotine withdrawals Fluticasone/Salmeterol Diskus 500/50 Own Med 1 inh PO BID [facility] Last Admin: 01/04/21 07:57 Dose: 1 inh Documented by: Hydrochlorothiazide 50 Mg Tablet Own Med 0 mg PO DAILY [facility] Last Admin: 01/04/21 07:55 Dose: 50 mg Documented by: Losartan Potassium [ (Cozaar] (Own Supply)) 0 mg PO DAILY [facility] Last Admin: 01/04/21 07:54 Dose: 100 mg Documented by: Nicotine 2mg Lozenge ((Own Supply)) 1 each PO Q4H PRN PRN Reason: NICOTINE CRAVINGS Last Admin: 11/18/20 08:01 Dose: 1 each Documented by: Spiriva Rosmery (18mcg (Own Supply)) 1 each INH DAILY [facility] Last Admin: 01/04/21 07:55 Dose: 1 each Documented by: Pregabalin 300mg ( (Own Supply)) 1 each PO BID [facility] Last Admin: 01/04/21 07:57 Dose: 1 each Documented by: Non-Formulary Medication (Nicotine 4mg Gum) 1 each PO Q1H PRN PRN Reason: nicotine craving Last Admin: 12/03/20 15:12 Dose: 1 each Documented by: Insulin Aspart [ Novolog Flexpen] Own Med 0 unit SQ TIDMEALS [facility] Last Admin: 01/04/21 07:50 Dose: 20 unit Documented by: Cyclobenzaprine 5mg ((Own Supply)) 1 each PO Q8H PRN PRN Reason: back pain/spasm Last Admin: 01/03/21 23:53 Dose: 1 each Documented by: Omeprazole (Omeprazole 20 Mg Cap.Cr) 20 mg PO BID@0900,1700 [facility] Last Admin: 01/03/21 16:00 Dose: 20 mg Documented by: Tamsulosin HCl (Tamsulosin 0.4 Mg Cap.Er (Own Supply)) 0.4 mg PO DAILY [facility] Last Admin: 01/04/21 07:55 Dose: 0.4 mg Documented by: Tramadol HCl (Tramadol 50 Mg Tab (Own Supply)) 50 mg PO BEDTIME [facility] Last Admin: 01/03/21 20:10 Dose: 50 mg Documented by: Discontinued Medications Albuterol (Albuterol 0.083% 2.5 Mg/3 Ml Neb Own Med) 2.5 mg NEB Q4H PRN PRN Reason: Shortness of Breath Last Admin: 11/16/20 22:26 Dose: 2.5 mg Documented by: Albuterol/Ipratropium (Albuterol/Ipratropium 3.0-0.5 Mg/3 Ml Neb Soln) 3 ml NEB Q4H PRN PRN Reason: Shortness of Breath Albuterol/Ipratropium (Albuterol/Ipratropium 3.0-0.5 Mg/3 Ml Neb Soln) 3 ml NEB Q4HRRT PRN PRN Reason: Wheezing Last Admin: 11/27/20 23:54 Dose: 3 ml Documented by: Amlodipine Besylate (Amlodipine 5 Mg Tab (Own Supply)) 5 mg PO DAILY [facility] Last Admin: 12/07/20 08:47 Dose: 5 mg Documented by: Amlodipine Besylate (Amlodipine 5 Mg Tab (Own Supply)) 10 mg PO DAILY MIGUEL ÁNGEL Stop: 12/11/20 08:01 Last Admin: 12/11/20 09:37 Dose: 10 mg Documented by: Atorvastatin Calcium (Atorvastatin 40 Mg Tab) 40 mg PO BEDTIME MIGUEL ÁNGEL Stop: 11/16/20 20:01 Last Admin: 11/16/20 20:08 Dose: 40 mg Documented by: Calcium Carbonate/Glycine (Calcium Carbonate 750 Mg Tab.Chew) 750 mg PO Q8H PRN PRN Reason: Dyspepsia Calcium Carbonate/Glycine (Calcium Carbonate 750 Mg Tab.Chew) 750 mg PO Q2H PRN PRN Reason: Dyspepsia Calcium Carbonate/Glycine (Calcium Carbonate 750 Mg Tab.Chew) 1,500 mg PO ONETIME ONE Stop: 11/23/20 22:51 Last Admin: 11/23/20 22:54 Dose: 1,500 mg Documented by: Colchicine (Colchicine 0.6 Mg Tab (Own Supply)) 0.6 mg PO DAILY MIGUEL ÁNGEL Stop: 12/13/20 08:01 Last Admin: 12/13/20 09:03 Dose: 0.6 mg Documented by: Colchicine (Colchicine 0.6 Mg Tab (Own Supply)) 1.2 mg PO ONETIME ONE Stop: 12/07/20 12:01 Last Admin: 12/07/20 12:48 Dose: 1.2 mg Documented by: Insulin Lispro Protam/Lispro Human (Insulin Lispro Protamine/Lispro 75-25 100 Units/Ml 10 Ml Vial) 20 unit SUBCUT [facility] Stop: 12/17/20 19:51 Last Admin: 12/17/20 21:10 Dose: Not Given Documented by: Nicotine (Nicotine 21 Mg/24 Hr Patch) 21 mg TRDERM DAILY [facility] Last Admin: 12/06/20 08:13 Dose: Not Given Documented by: Insulin Aspart Flexpen 100 Unit/Ml 3ml Pen Own Med* * 0 unit SQ TIDMEALS [facility] Last Admin: 11/17/20 11:23 Dose: Not Given Documented by: Lantus 100 Units/Ml (Pen Own Med) 0 units SQ BEDTIME [facility] Last Admin: 11/18/20 19:47 Dose: 78 units Documented by: Ipratropium 12.9 Gm (Inhaler (Own Supply)) 1 inh PO TID [facility] Last Admin: 11/17/20 13:16 Dose: Not Given Documented by: Pregabalin 100mg/Cap (Own Med) 0 mg PO BID [facility] Stop: 11/18/20 08:01 Last Admin: 11/18/20 08:00 Dose: 300 mg Documented by: Insulin Aspart [ Novolog Flexpen] ( Own Supply) 0 unit SQ TIDMEALS [facility] Last Admin: 11/18/20 12:10 Dose: 25 unit Documented by: Nicotine 4mg Gum 1 each PO Q4H PRN PRN Reason: nicotine craving Last Admin: 11/18/20 16:11 Dose: 1 each Documented by: Own Med Insulin Aspart [Novolog Flexpen] 20 unit SQ TIDMEALS [facility] Last Admin: 11/19/20 07:50 Dose: Not Given Documented by: Insulin Glarg,Human. Rec.Analog 70 Units* *Own Med 0 units SQ BEDTIME [facility] Lantus Pen Own Med () 0 each SQ BEDTIME [facility] Last Admin: 12/02/20 19:41 Dose: 63 each Documented by: Omeprazole (Omeprazole 20 Mg Cap.Cr) 20 mg PO BIDAC [facility] Last Admin: 12/22/20 11:30 Dose: Not Given Documented by: Insulin Aspar 100 Unit/Ml 3ml Pen Own Med 0 each SUBCUT TIDMEALS [facility]; Protocol Last Admin: 11/19/20 17:41 Dose: Not Given Documented by: - Exam General: Reports: Alert, Oriented, Cooperative, No Acute Distress HEENT: Reports: EOMI, Mucous Membr. Moist/Tigard Neck: Reports: Supple Lungs: Reports: Clear to Auscultation, Normal Respiratory Effort Cardiovascular: Reports: Regular Rate, Regular Rhythm, Murmurs (1/6 ejection) GI/Abdominal Exam: Normal Bowel Sounds, Soft, Non-Tender Back Exam: Reports: Normal Inspection Extremities: Other (Right BKA) Skin: Reports: Warm, Dry Wound/Incisions: Reports: Other (quarter sized superficial ulcer noted on the sole of the left foot, healing. Ulcar on the tip of the foot healed over completely) Neurological: Reports: No New Focal Deficit Psy/Mental Status: Reports: Alert, Normal Affect, Normal Mood
[2021-01-04] MEDS: Omeprazole 20 MG Cap.CR PO SCH (12:07)
== END 2021-01-04 13:10 | disposition home or self-care (01) | DRG 639 ==
LOC: VM.ED 15:32 → VM.MS 17:18
PROVIDERS: ADMIT Family Medicine; ATTEND Family Medicine
DX: E11.621 Type 2 diabetes mellitus with foot ulcer (principal); I10 Essential (primary) hypertension; L97.529 Non-pressure chronic ulcer of other part of left foot with unspecified severity; E78.5 Hyperlipidemia, unspecified; Z99.3 Dependence on wheelchair; J44.9 Chronic obstructive pulmonary disease, unspecified; Z79.899 Other long term (current) drug therapy; Z88.7 Allergy status to serum and vaccine; Z20.822 Contact with and (suspected) exposure to COVID-19; K21.9 Gastro-esophageal reflux disease without esophagitis; F41.9 Anxiety disorder, unspecified; M54.5 Low back pain; E11.65 Type 2 diabetes mellitus with hyperglycemia; F17.210 Nicotine dependence, cigarettes, uncomplicated; Z59.0 Homelessness; Z88.8 Allergy status to other drugs, medicaments and biological substances; Z79.4 Long term (current) use of insulin; Z89.431 Acquired absence of right foot
CPT/HCPCS: 36415; 80305-QW; 80307; 82947; 94640; 97110-GP; 97163-GP; 97165-GO; 97530-GP; 99284; A9270-GY; J1815-GY; J7613-GY; J7620-GY; U0002

== ENCOUNTER 2021-01-16 17:20 | Emergency (ER) | payer MEDICAID ==
[2021-01-16] MEDS ORDERED: Sulfamethoxazole/Trimethoprim 800-160 MG Tab PO ONE (17:31)
--- NOTE | 2021-01-16 17:33 | EDM.PDOC ---
ED HPI GENERAL MEDICAL PROBLEM - General Chief Complaint: Lower Extremity Injury/Pain Stated Complaint: FOOT ISSUE Time Seen by Provider: 01/16/21 17:30 Source of Information: Reports: Patient History Limitations: Reports: No Limitations - History of Present Illness INITIAL COMMENTS - FREE TEXT/NARRATIVE: Patient comes in the emergency department with complaint of a left nonhealing foot ulcer. Patient states that he has run out of dressings and was supposed to have home health come in 2 times a week however they have not started. Patient states that he would like his dressing change. He is also notes a little bit of redness around the edges. He denies any recent drainage, trauma, worsening of the wound. Patient states that he has been doctoring out of [place] re garding the extensive wound treatment in the past. Patient states He denies having any fever, nausea, vomiting, chills, abdominal pain, gastrointestinal issues. Onset: Gradual Quality: Reports: Other Severity: Moderate Improves with: Reports: None Worsens with: Reports: None Context: Reports: Activity Associated Symptoms: Reports: No Other Symptoms - Related Data Allergies Allergy/AdvReac Type Severity Reaction Status Date / Time linezolid Allergy Other Verified 01/16/21 17:37 tetanus toxoid, adsorbed Allergy Other Verified 01/16/21 17:37 Home Meds: Home Meds Acetaminophen 650 mg PO Q4H PRN 11/16/20 [History] Umeclidinium Robinson [Incruse Ellipta] 1 inh PO DAILY 11/16/20 [History] Albuterol [Proventil Neb Soln] 2.5 mg NEB Q4H PRN #1 01/04/21 [Rx] Albuterol/Ipratropium [DuoNeb 3.0-0.5 MG/3 ML] 3 ml NEB Q4H PRN #1 01/04/21 [Rx] Fluticasone Propion/Salmeterol [Fluticasone-Salmeterol 500-50] 1 inh PO BID #1 01/04/21 [Rx] Insulin Aspart [Novolog Flexpen] 28 unit SQ TIDMEALS #2 01/04/21 [Rx] Insulin Glarg,Human.Rec.Analog [Lantus] 63 unit SUBCUT BEDTIME #2 ml 01/04/21 [Rx] Ipratropium [Atrovent HFA] 1 inh PO TID #1 inhaler 01/04/21 [Rx] Losartan Potassium [Cozaar] 100 mg PO DAILY #30 01/04/21 [Rx] Metoprolol Succinate 25 mg PO DAILY #30 tab.er.24h 01/04/21 [Rx] Multivitamin with Minerals [Multivitamins with Minerals] 1 tab PO DAILY #30 01/04/21 [Rx] Omeprazole 20 mg PO BIDAC #30 01/04/21 [Rx] Pregabalin 300 mg PO BID #60 01/04/21 [Rx] Tamsulosin HCl [Flomax] 0.4 mg PO DAILY #30 01/04/21 [Rx] amLODIPine [Norvasc] 10 mg PO DAILY #60 01/04/21 [Rx] atorvaSTATin [Lipitor] 40 mg PO BEDTIME #30 01/04/21 [Rx] hydroCHLOROthiazide [Hydrochlorothiazide] 0 mg PO DAILY #30 01/04/21 [Rx] Sulfamethoxazole/Trimethoprim [Bactrim Ds Tablet] 1 each PO BID 10 Days #20 tablet 01/16/21 [Rx] Past Medical History HEENT History: Reports: None Cardiovascular History: Reports: None Respiratory History: Reports: None Gastrointestinal History: Reports: None Genitourinary History: Reports: None Musculoskeletal History: Reports: Amputation Neurological History: Reports: None Endocrine/Metabolic History: Reports: Diabetes, Type II Dermatologic History: Reports: None - Past Surgical History Musculoskeletal Surgical History: Reports: Amputation Social & Family History - Family History Family Medical History: Unobtainable - Caffeine Use Caffeine Use: Reports: None ED ROS GENERAL - Review of Systems Review Of Systems: Comprehensive ROS is negative, except as noted in HPI. Constitutional: Reports: No Symptoms HEENT: Reports: No Symptoms Respiratory: Reports: No Symptoms Cardiovascular: Reports: No Symptoms Endocrine: Reports: No Symptoms GI/Abdominal: Reports: No Symptoms : Reports: No Symptoms Musculoskeletal: Reports: No Symptoms Neurological: Reports: No Symptoms Psychiatric: Reports: No Symptoms Hematologic/Lymphatic: Reports: No Symptoms Immunologic: Reports: No Symptoms ED EXAM, GENERAL - Physical Exam Exam: See Below Exam Limited By: No Limitations General Appearance: Alert, WD/WN, No Apparent Distress Head: Atraumatic, Normocephalic Neck: Normal Inspection, Supple, Non-Tender, Full Range of Motion Respiratory/Chest: No Respiratory Distress, Lungs Clear, Normal Breath Sounds, No Accessory Muscle Use, Chest Non-Tender Cardiovascular: Normal Peripheral Pulses, Regular Rate, Rhythm, No Edema GI/Abdominal: Normal Bowel Sounds, Soft, Non-Tender Extremities: Normal Inspection, Normal Range of Motion, Normal Capillary Refill, Leg Pain (right lower foot- ulcer noted 0.5inch diameter ucler noted minimal drainage- pink granulated tissue around the edges. ), Redness Psychiatric: Normal Affect, Normal Mood Skin Exam: Decubitus Departure - Departure Time of Disposition: 17:35 Disposition: Home, Self-Care 01 Condition: Good Clinical Impression: Ulcer, Non healing left heel wound, Foot infection - Discharge Information *PRESCRIPTION DRUG MONITORING PROGRAM REVIEWED*: Not Applicable *COPY OF PRESCRIPTION DRUG MONITORING REPORT IN PATIENT JOSEPHINE: Not Applicable Instructions: Cellulitis, Adult Forms: ED Department Discharge Additional Instructions: 1. Rest 2. Keep the area clean and dry 3. Can use tylenol and ibuprofen as needed for pain and discomfort 4. Diet as tolerated 5. Activity as tolerated 6. Elevated the injured area above the level of the heart to decrease swelling and discomfort if applicable 7. Can use ice 3-4 times a day at 20-minute intervals to help with any swelling and discomfort 8. Follow-up with your primary care provider symptoms continue or to progress 9. Discharge information has been provided regarding your injury and wound care has been provided 10. Avoid an public pools or hot tubes until wound is healed. 11. Need to call your credentialing manager tomorrow and obtain further direction and guidance - Assessment/Plan Assessment:: 1. non healing ulcer 2. cellulitis Plan: 1. Bactrim given in ER 2. wound care dressing completed 3. Patient and nursing staff was updated regarding the plan of care 4. Education provided the patient regarding activity, diet, rest, [id number] medication modalities, and follow-up care was provided 5. Patient and family are agreeable to the above plan of care 6. All questions and concerns were addressed with the patient and family prior to discharge
== END 2021-01-16 17:48 | disposition home or self-care (01) ==
LOC: VM.ED 17:20
DX: E11.622 Type 2 diabetes mellitus with other skin ulcer (principal); L97.429 Non-pressure chronic ulcer of left heel and midfoot with unspecified severity; L08.9 Local infection of the skin and subcutaneous tissue, unspecified; E11.9 Type 2 diabetes mellitus without complications; Z79.4 Long term (current) use of insulin; Z79.899 Other long term (current) drug therapy; Z88.8 Allergy status to other drugs, medicaments and biological substances
CPT/HCPCS: 99282; 99283; A9270-GY

== ENCOUNTER 2021-04-10 17:27 | Emergency (ER) | payer MEDICAID ==
[2021-04-10] MEDS ORDERED: Sodium Chloride 0.9% 10 ML Syringe FLUSH PRN (17:55)
[2021-04-10] MEDS ORDERED: cefTRIAXone 2 GM Vial IVPUSH ONE (18:11)
[2021-04-10] MEDS ORDERED: methylPREDNISolone Sodium Succinate 125 MG/2 ML SDV IV ONE (18:12)
[2021-04-10] MEDS ORDERED: Albuterol 0.083% 2.5 MG/3 ML Neb Soln NEB ONE (18:12)
--- NOTE | 2021-04-10 18:12 | EDM.PDOC ---
<Tyshawn Shaw - Last Filed: 04/10/21 19:16> ED HPI GENERAL MEDICAL PROBLEM - General Time Seen by Provider: 04/10/21 17:30 Source of Information: Reports: Patient History Limitations: Reports: No Limitations - History of Present Illness INITIAL COMMENTS - FREE TEXT/NARRATIVE: Pt. presents to ER with complaints of cough, chest congestion, and wheezing that started a couple of days ago. Pt. has a history of COPD. EMS starts that she has been without is albuterol nebulizers. Pt. is currently on spiriva and incruse ellipta. Pt. denies any substernal chest pain. No jaw, arm, neck or back pain. No nausea, vomiting, or diarrhea. No melena, hematochezia, or hematemesis. Onset: Today - Related Data Allergies Allergy/AdvReac Type Severity Reaction Status Date / Time linezolid Allergy Other Verified 04/10/21 19:05 tetanus toxoid, adsorbed Allergy Other Verified 04/10/21 19:05 Home Meds: Home Meds Acetaminophen 650 mg PO Q4H PRN 11/16/20 [History] Umeclidinium [place] [Incruse Ellipta] 1 inh PO DAILY 11/16/20 [History] Albuterol [Proventil Neb Soln] 2.5 mg NEB Q4H PRN #1 01/04/21 [Rx] Albuterol/Ipratropium [DuoNeb 3.0-0.5 MG/3 ML] 3 ml NEB Q4H PRN #1 01/04/21 [Rx] Fluticasone Propion/Salmeterol [Fluticasone-Salmeterol 500-50] 1 inh PO BID #1 01/04/21 [Rx] Insulin Aspart [Novolog Flexpen] 28 unit SQ TIDMEALS #2 01/04/21 [Rx] Insulin Glarg,Human.Rec.Analog [Lantus] 63 unit SUBCUT BEDTIME #2 ml 01/04/21 [Rx] Ipratropium [Atrovent HFA] 1 inh PO TID #1 inhaler 01/04/21 [Rx] Losartan Potassium [Cozaar] 100 mg PO DAILY #30 01/04/21 [Rx] Metoprolol Succinate 25 mg PO DAILY #30 tab.er.24h 01/04/21 [Rx] Multivitamin with Minerals [Multivitamins with Minerals] 1 tab PO DAILY #30 01/04/21 [Rx] Omeprazole 20 mg PO BIDAC #30 01/04/21 [Rx] Pregabalin 300 mg PO BID #60 01/04/21 [Rx] Tamsulosin HCl [Flomax] 0.4 mg PO DAILY #30 01/04/21 [Rx] amLODIPine [Norvasc] 10 mg PO DAILY #60 01/04/21 [Rx] atorvaSTATin [Lipitor] 40 mg PO BEDTIME #30 01/04/21 [Rx] hydroCHLOROthiazide [Hydrochlorothiazide] 0 mg PO DAILY #30 01/04/21 [Rx] Sulfamethoxazole/Trimethoprim [Bactrim Ds Tablet] 1 each PO BID 10 Days #20 tablet 01/16/21 [Rx] Past Medical History HEENT History: Reports: None Cardiovascular History: Reports: None Respiratory History: Reports: None Gastrointestinal History: Reports: None Genitourinary History: Reports: None Musculoskeletal History: Reports: Amputation Neurological History: Reports: None Endocrine/Metabolic History: Reports: Diabetes, Type II Dermatologic History: Reports: None - Past Surgical History Musculoskeletal Surgical History: Reports: Amputation Social & Family History - Family History Family Medical History: Unobtainable - Caffeine Use Caffeine Use: Reports: None ED ROS GENERAL - Review of Systems Review Of Systems: See Below Constitutional: Reports: Fever, Weakness HEENT: Reports: No Symptoms Respiratory: Reports: Shortness of Breath, Wheezing Cardiovascular: Reports: No Symptoms Endocrine: Reports: No Symptoms GI/Abdominal: Reports: No Symptoms : Reports: No Symptoms Musculoskeletal: Reports: No Symptoms Skin: Reports: No Symptoms Neurological: Reports: No Symptoms Psychiatric: Reports: No Symptoms Hematologic/Lymphatic: Reports: No Symptoms Immunologic: Reports: No Symptoms ED EXAM, GENERAL - Physical Exam Exam: See Below Exam Limited By: No Limitations General Appearance: Alert, WD/WN, No Apparent Distress Nose: Normal Inspection, Normal Mucosa, No Blood Throat/Mouth: Normal Inspection, Normal Lips, Normal Teeth, Normal Oropharynx, Normal Voice, No Airway Compromise Head: Atraumatic, Normocephalic Neck: Normal Inspection, Supple, Non-Tender, Full Range of Motion Respiratory/Chest: No Accessory Muscle Use, Decreased Breath Sounds, Wheezing Cardiovascular: Normal Peripheral Pulses, Regular Rate, Rhythm, No Edema, No JVD, No Murmur GI/Abdominal: Soft, Non-Tender, No Distention, No Mass (Male) Exam: Deferred Rectal (Males) Exam: Deferred Extremities: Normal Inspection, Normal Range of Motion, Non-Tender, No Pedal Edema, Normal Capillary Refill Neurological: Alert, Oriented, CN II-XII Intact, Normal Cognition, Normal Reflexes, No Motor/Sensory Deficits Psychiatric: Normal Affect, Normal Mood Skin Exam: Warm, Dry, Intact, Normal Color Lymphatic: No Adenopathy Departure - Departure Disposition: Home, Self-Care 01 Clinical Impression: Pneumonia, Shortness of breath - Discharge Information Instructions: Shortness of Breath, Adult Referrals: Maria Del Carmen Garvey MD [Primary Care Provider] - Forms: ED Department Discharge Additional Instructions: Make sure you take all of your antibiotic Zithromax 250 mg 1 tablet every day for the next 4 days I recommend that you take a probiotic daily while you are taking the antibiotics Make sure you take your home nebulizers as directed Follow-up with your primary care provider in the next 24 hours Return here to the emergency room if anything changes or gets worse <Marco Maki - Last Filed: 04/12/21 09:17> Course - Vital Signs Text/Narrative:: Patient was turned over to me for follow-up on labs and disposition. Lab work White count within normal limits glucose elevated patient states he is diabetic has not taken his insulin today. Rest of his lab work is within normal limits. Patient states he does not want to stay in the hospital and wants to be discharged home he was given a gram of Rocephin by Tyshawn. I gave him Zithromax 500 mg p.o. now. Patient was in no respiratory distress satting 95% on room air. He will be discharged home on Zithromax he states he will follow-up with his primary care provider he has no other complaints at this time he is okay with disposition and going home. Last Recorded V/S: Last Vital Signs Temp 36.5 C 04/10/21 17:27 Pulse 94 04/10/21 17:27 Resp 18 04/10/21 17:27 BP 179/91 H 04/10/21 17:27 Pulse Ox 97 04/10/21 17:27 - Orders/Labs/Meds Labs: Laboratory Tests 04/10/21 04/10/2121 Range/Units 19:06 19:36 19:36 WBC 8.9 (4.0-10.0) x10^3/uL RBC 5.61 (4.5-6.0) x10^6/uL Hgb 15.3 (14.0-18.0) g/dL Hct 44.1 (40.0-52.0) % MCV 78.6 (78.0-93.0) fL MCH 27.3 (26.0-32.0) pg MCHC 34.7 (32.0-36.0) g/dL RDW Coeff of Neena 14.1 (10.0-15.0) % Plt Count 211 (130-400) x10^3/uL Immature Gran % (Auto) 0.30 (0.00-0.43) % Neut % (Auto) 67.9 (50.0-80.0) % Lymph % (Auto) 21.6 L (25.0-50.0) % [place] % (Auto) 6.3 (2.0-11.0) % Eos % (Auto) 3.6 (0.0-4.0) % Baso % (Auto) 0.3 (0.2-1.2) % Neut # (Auto) 6.1 (1.8-7.7) x10^3/uL Lymph # (Auto) 1.9 (1.0-4.8) x10^3/uL [place] # (Auto) 0.6 (0.0-0.8) x10^3/uL Eos # (Auto) 0.3 (0.0-0.5) x10^3/uL Baso # (Auto) 0.0 (0.0-0.2) x10^3/uL Immature Gran # (Auto) 0.03 (0.00-0.07) x10^3/uL PT 10.1 (9.9-12.5) SEC INR 0.9 L (2.0-3.5) Sodium (136-145) mmol/L Potassium (3.5-5.1) mmol/L Chloride (98-107) mmol/L Carbon Dioxide (21-32) mmol/L Anion Gap (5-15) mmol/L BUN (7-18) mg/dL Creatinine (0.70-1.30) mg/dL Est Cr Clr Drug Dosing Estimated GFR (MDRD) Glucose (70-99) mg/dL Lactic Acid (0.4-2.0) mmol/L Calcium (8.5-10.1) mg/dL Corrected Calcium (8.5-10.1) mg/dL Phosphorus (2.6-4.7) mg/dL Magnesium (1.8-2.4) mg/dL Total Bilirubin (0.2-1.0) mg/dL AST (15-37) U/L ALT (16-63) U/L Alkaline Phosphatase (46-116) U/L C-Reactive Protein (<=0.9) mg/dL Total Protein (6.4-8.2) g/dL Albumin (3.4-5.0) g/dL Globulin Albumin/Globulin Ratio Influenza Type A RNA Negative (NEGATIVE) RSV RNA (INAAT) Negative (NEGATIVE) Influenza Type B RNA Negative (NEGATIVE) SARS-CoV-2 RNA ([facility]) Negative (NEGATIVE) 04/10/21 04/10/21 Range/Units 19:36 19:36 WBC (4.0-10.0) x10^3/uL RBC (4.5-6.0) x10^6/uL Hgb (14.0-18.0) g/dL Hct (40.0-52.0) % MCV (78.0-93.0) fL MCH (26.0-32.0) pg MCHC (32.0-36.0) g/dL RDW Coeff of Neena (10.0-15.0) % Plt Count (130-400) x10^3/uL Immature Gran % (Auto) (0.00-0.43) % Neut % (Auto) (50.0-80.0) % Lymph % (Auto) (25.0-50.0) % [place] % (Auto) (2.0-11.0) % Eos % (Auto) (0.0-4.0) % Baso % (Auto) (0.2-1.2) % Neut # (Auto) (1.8-7.7) x10^3/uL Lymph # (Auto) (1.0-4.8) x10^3/uL [place] # (Auto) (0.0-0.8) x10^3/uL Eos # (Auto) (0.0-0.5) x10^3/uL Baso # (Auto) (0.0-0.2) x10^3/uL Immature Gran # (Auto) (0.00-0.07) x10^3/uL PT (9.9-12.5) SEC INR (2.0-3.5) Sodium 138 (136-145) mmol/L Potassium 3.7 (3.5-5.1) mmol/L Chloride 100 (98-107) mmol/L Carbon Dioxide 27 (21-32) mmol/L Anion Gap 14.7 (5-15) mmol/L BUN 19 H (7-18) mg/dL Creatinine 1.1 (0.70-1.30) mg/dL Est Cr Clr Drug Dosing TNP Estimated GFR (MDRD) > 60 Glucose 221 H (70-99) mg/dL Lactic Acid 2.2 H* (0.4-2.0) mmol/L Calcium 9.2 (8.5-10.1) mg/dL Corrected Calcium 9.8 (8.5-10.1) mg/dL Phosphorus 3.5 (2.6-4.7) mg/dL Magnesium 1.5 L (1.8-2.4) mg/dL Total Bilirubin 0.2 (0.2-1.0) mg/dL AST 14 L (15-37) U/L ALT 23 (16-63) U/L Alkaline Phosphatase 162 H (46-116) U/L C-Reactive Protein 0.3 (<=0.9) mg/dL Total Protein 7.6 (6.4-8.2) g/dL Albumin 3.2 L (3.4-5.0) g/dL Globulin 4.4 Albumin/Globulin Ratio 0.73 Influenza Type A RNA (NEGATIVE) RSV RNA (INAAT) (NEGATIVE) Influenza Type B RNA (NEGATIVE) SARS-CoV-2 RNA ([facility]) (NEGATIVE) Meds: Medications Discontinued Medications Generic Name Dose Route Start Last Admin Trade Name Freq PRN Reason Stop Dose Admin Albuterol 2.5 mg 04/10/21 18:12 04/10/21 18:54 Albuterol 0.083% 2.5 Mg/3 Ml Neb Soln NEB 04/10/21 18:13 2.5 mg ONETIME ONE Administration Azithromycin 500 mg 04/10/21 19:35 Azithromycin 250 Mg Tab PO 04/10/21 19:36 ONETIME ONE Ceftriaxone Sodium 2 gm 04/10/21 18:11 04/10/21 18:53 Ceftriaxone 2 Gm Vial IVPUSH 04/10/21 18:12 2 gm STAT ONE Administration Methylprednisolone Sodium Succinate 125 mg 04/10/21 18:12 04/10/21 18:45 Methylprednisolone Sodium Succinate 125 Mg/2 Ml Sdv IV 04/10/21 18:13 125 mg ONETIME ONE Administration Sodium Chloride 10 ml 04/10/21 17:55 Sodium Chloride 0.9% 10 Ml Syringe FLUSH ASDIRECTED PRN Keep Vein Open Departure - Departure Time of Disposition: 20:30 Condition: Good - Discharge Information *PRESCRIPTION DRUG MONITORING PROGRAM REVIEWED*: No *COPY OF PRESCRIPTION DRUG MONITORING REPORT IN PATIENT JOSEPHINE: No - Problem List & Annotations (1) Pneumonia SNOMED Code(s): 781767380 Code(s): J18.9 - PNEUMONIA, UNSPECIFIED ORGANISM Status: Acute (2) Shortness of breath SNOMED Code(s): 962755107 Code(s): R06.02 - SHORTNESS OF BREATH Status: Acute
--- NOTE | 2021-04-10 18:21 | CR ---
[id number] RAD/RAD Chest Portable EXAM: PORTABLE CHEST INDICATION: SOB COMPARISON: None. DISCUSSION: Low lung volumes. Mild bibasilar atelectasis and possible infiltrates. Normal heart size. No effusions. IMPRESSION: 1. Bibasilar atelectasis and possible infiltrates. Mike Abad MD 04/10/21 [id number] Thank you for allowing us to participate in the care of your patient.
[2021-04-10] MEDS ORDERED: Azithromycin 250 MG Tab PO ONE (19:35)
[2021-04-10 20:09] LABS: CORONAVIRUS COVID-19 NAA NEGATIVE (NEGATIVE)
[2021-04-10 20:10] LABS: RESPIRATORY SYNCYTIAL VIR NAA NEGATIVE (NEGATIVE)
[2021-04-10 20:17] LABS: CHLORIDE,CL 100 mmol/L (98-107); SODIUM,NA 138 mmol/L (136-145)
[2021-04-10 20:18] LABS: ANION GAP 14.7 mmol/L (5-15)
== END 2021-04-10 20:58 | disposition home or self-care (01) ==
LOC: VM.ED 17:27
DX: J18.9 Pneumonia, unspecified organism (principal); R06.02 Shortness of breath; J44.9 Chronic obstructive pulmonary disease, unspecified; E11.9 Type 2 diabetes mellitus without complications; Z88.7 Allergy status to serum and vaccine; Z88.1 Allergy status to other antibiotic agents; Z79.4 Long term (current) use of insulin; Z79.899 Other long term (current) drug therapy; Z20.822 Contact with and (suspected) exposure to COVID-19
CPT/HCPCS: 0241U; 36415; 71045; 80053; 83605; 83735; 84100; 85025; 85610; 86140; 87040; 94640; 96374; 96375; 99284; 99285-25; J0696; J2930; J7613-GY

== ENCOUNTER 2021-05-07 21:27 | Emergency (ER) | payer MEDICAID ==
[2021-05-07] MEDS ORDERED: Albuterol 0.083% 2.5 MG/3 ML Neb Soln NEB ONE (21:37)
--- NOTE | 2021-05-07 21:49 | EDM.PDOC ---
ED HPI GENERAL MEDICAL PROBLEM - General Chief Complaint: Respiratory Problem Stated Complaint: shortnes of breath one hour ago Time Seen by Provider: 05/07/21 21:40 Source of Information: Reports: Patient, EMS, EMS Notes Reviewed, Old Records History Limitations: Reports: No Limitations - History of Present Illness INITIAL COMMENTS - FREE TEXT/NARRATIVE: Pateint has a long standing history of lung problems, shortness of breath. Was seen recently and was placed on antibiotics and steroids. Has one or two days left of the antibiotics. Has had covid a year ago, no vaccinations. No influenza vaccinations. Called EMS due to shortness of breath. He met them in the hallway and is not on oxygen. EMS did start a neb and he has some at home. NO fevers. His symptoms started one hour prior to arrival Duration: Hour(s): Back Pain Score (Numeric/FACES): 6 - Related Data Allergies Allergy/AdvReac Type Severity Reaction Status Date / Time linezolid Allergy Other Verified 04/10/21 19:05 tetanus toxoid, adsorbed Allergy Other Verified 04/10/21 19:05 Home Meds: Home Meds Acetaminophen 650 mg PO Q4H PRN 11/16/20 [History] Umeclidinium [place] [Incruse Ellipta] 1 inh PO DAILY 11/16/20 [History] Albuterol [Proventil Neb Soln] 2.5 mg NEB Q4H PRN #1 01/04/21 [Rx] Albuterol/Ipratropium [DuoNeb 3.0-0.5 MG/3 ML] 3 ml NEB Q4H PRN #1 01/04/21 [Rx] Fluticasone Propion/Salmeterol [Fluticasone-Salmeterol 500-50] 1 inh PO BID #1 01/04/21 [Rx] Insulin Aspart [Novolog Flexpen] 28 unit SQ TIDMEALS #2 01/04/21 [Rx] Insulin Glarg,Human.Rec.Analog [Lantus] 63 unit SUBCUT BEDTIME #2 ml 01/04/21 [Rx] Ipratropium [Atrovent HFA] 1 inh PO TID #1 inhaler 01/04/21 [Rx] Losartan Potassium [Cozaar] 100 mg PO DAILY #30 01/04/21 [Rx] Metoprolol Succinate 25 mg PO DAILY #30 tab.er.24h 01/04/21 [Rx] Multivitamin with Minerals [Multivitamins with Minerals] 1 tab PO DAILY #30 01/04/21 [Rx] Omeprazole 20 mg PO BIDAC #30 01/04/21 [Rx] Pregabalin 300 mg PO BID #60 01/04/21 [Rx] Tamsulosin HCl [Flomax] 0.4 mg PO DAILY #30 01/04/21 [Rx] amLODIPine [Norvasc] 10 mg PO DAILY #60 01/04/21 [Rx] atorvaSTATin [Lipitor] 40 mg PO BEDTIME #30 01/04/21 [Rx] hydroCHLOROthiazide [Hydrochlorothiazide] 0 mg PO DAILY #30 01/04/21 [Rx] Sulfamethoxazole/Trimethoprim [Bactrim Ds Tablet] 1 each PO BID 10 Days #20 tablet 01/16/21 [Rx] Past Medical History HEENT History: Reports: None Cardiovascular History: Reports: None Respiratory History: Reports: None, Bronchitis, Recurrent, COPD Gastrointestinal History: Reports: None Genitourinary History: Reports: None Musculoskeletal History: Reports: Amputation Neurological History: Reports: None Endocrine/Metabolic History: Reports: Diabetes, Type II Dermatologic History: Reports: None - Past Surgical History Musculoskeletal Surgical History: Reports: Amputation Social & Family History - Family History Family Medical History: Unobtainable - Tobacco Use Tobacco Use Status *Q: Current Every Day Tobacco User Tobacco Use Within Last Twelve Months: Snuff/Dip - Caffeine Use Caffeine Use: Reports: None ED ROS GENERAL - Review of Systems Review Of Systems: See Below Constitutional: Denies: Fever, Chills, Malaise, Weakness, Fatigue HEENT: Reports: No Symptoms Respiratory: Reports: Shortness of Breath (chronically), Cough (chronically) Cardiovascular: Reports: No Symptoms, Dyspnea on Exertion (chronically). Denies: Chest Pain Endocrine: Reports: No Symptoms GI/Abdominal: Reports: No Symptoms : Reports: No Symptoms Musculoskeletal: Reports: No Symptoms Skin: Reports: No Symptoms ED EXAM, GENERAL - Physical Exam Exam: See Below Exam Limited By: No Limitations General Appearance: Alert, WD/WN, No Apparent Distress, Other (dishelved, ) Eye Exam: Bilateral Eye: EOMI, Normal Inspection, PERRL Nose: Normal Inspection, Normal Mucosa Throat/Mouth: Normal Inspection, Normal Lips, Normal Voice, No Airway Compromise Head: Atraumatic Respiratory/Chest: Decreased Breath Sounds (bases, due to body habitus), Crackles. 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 no drainage through these ) Neurological: Alert, Oriented, Normal Cognition #1 Interpretation EKG Date: 05/07/21 Time: 21:51 Rhythm: NSR Rate (Beats/Min): 80 QRS: Other (lafb and LVH) ST-T: Normal QT: Normal Comparison: NA - No Prior EKG Course - Vital Signs Last Recorded V/S: Last Vital Signs Temp 37.0 C 05/07/21 21:27 Pulse 90 05/07/21 21:27 Resp 24 H 05/07/21 21:27 BP 180/78 H 05/07/21 21:27 Pulse Ox 97 05/07/21 21:27 - Orders/Labs/Meds Orders: Active Orders 24 hr Category Date Time Status Cardiac Monitoring [RC] . DIRECTED Care 05/07/21 21:37 Active RT Aerosol Therapy [RC] ASDIRECTED Care 05/07/21 21:38 Active Chest 1V Frontal [CR] Stat Exams 05/07/21 21:37 Ordered C-REACTIVE PROTEIN [CHEM] Stat Lab 05/07/21 21:53 Received COMPREHENSIVE METABOLIC PN,CMP [CHEM] Stat Lab 05/07/21 21:53 Received PRO B-TYPE NATRIUR PEPT,BNPPRO [CHEM] Stat Lab 05/07/21 21:53 Received TROPONIN I HIGH SENSITIVITY [CHEM] Stat Lab 05/07/21 21:53 Received Labs: Laboratory Tests 05/07/21 05/07/21 Range/Units 21:53 21:53 WBC 9.2 (4.0-10.0) x10^3/uL RBC 5.20 (4.5-6.0) x10^6/uL Hgb 14.2 (14.0-18.0) g/dL Hct 41.1 (40.0-52.0) % MCV 79.0 (78.0-93.0) fL MCH 27.3 (26.0-32.0) pg MCHC 34.5 (32.0-36.0) g/dL RDW Coeff of Neena 14.2 (10.0-15.0) % Plt Count 190 (130-400) x10^3/uL Immature Gran % (Auto) 0.90 H (0.00-0.43) % Neut % (Auto) 72.5 (50.0-80.0) % Lymph % (Auto) 18.1 L (25.0-50.0) % [place] % (Auto) 5.6 (2.0-11.0) % Eos % (Auto) 2.7 (0.0-4.0) % Baso % (Auto) 0.2 (0.2-1.2) % Neut # (Auto) 6.7 (1.8-7.7) x10^3/uL Lymph # (Auto) 1.7 (1.0-4.8) x10^3/uL [place] # (Auto) 0.5 (0.0-0.8) x10^3/uL Eos # (Auto) 0.3 (0.0-0.5) x10^3/uL Baso # (Auto) 0.0 (0.0-0.2) x10^3/uL Immature Gran # (Auto) 0.08 H (0.00-0.07) x10^3/uL Lactic Acid 1.7 (0.4-2.0) mmol/L Meds: Medications Discontinued Medications Generic Name Dose Route Start Last Admin Trade Name Freq PRN Reason Stop Dose Admin Albuterol 2.5 mg 05/07/21 21:37 Albuterol 0.083% 2.5 Mg/3 Ml Neb Soln NEB 05/07/21 21:38 ONETIME ONE - Radiology Interpretation Free Text/Narrative:: chest x-ray with no acute findings. interpreted by radiology - Re-Assessments/Exams Free Text/Narrative Re-Assessment/Exam: 05/07/21 21:53 Patient has normal vitals, not hypoxic, slight tachypneic, no fevers. doing a duoneb from the ambulance Will check covid/flu/rsv/ labs, chest x-ray. only had symptoms for an hour. Appears not in acute distress 05/07/21 22:40 testing was normal ADvised pateint of need for chronic medical problems being followed by clinic. Wants pain medication. DEclined offering this.Use nebs at home. Non compliant with the last antibiotic ( zpak) given to patient 3 weeks ago. No needs for this or steroid today. VSS Departure - Departure Time of Disposition: 22:38 Disposition: Home, Self-Care 01 Condition: Fair Clinical Impression: COPD (chronic obstructive pulmonary disease) Type 2 diabetes mellitus Qualifiers: Diabetes mellitus alf insulin use: unspecified director long term care insulin use status Diabetes mellitus complication status: with other specified complication Qualified Code(s): E11.69 - Type 2 diabetes mellitus with other specified complication - Discharge Information Instructions: Chronic Obstructive Pulmonary Disease Forms: ED Department Discharge Additional Instructions: Chronic disease management of your lung disease is important. Continue your regular medications, try to manage your blood glucose better and have close follow up with your PCP, wound management team. Testing today did not reveal any abnormalities. You should always bring your walking assistive devices to the ED so that return home. continue using your nebulizers to help with your chronic lung problems. Schedule regular clinic visits for your chronic problems Sepsis Event Note (ED) - Focused Exam Vital Signs: Vital Signs Temp Pulse Resp BP Pulse Ox 05/07/21 21:27 37.0 C 90 24 H 180/78 H 97 - My Orders Last 24 Hours: My Active Orders 05/07/21 21:37 Cardiac Monitoring [RC] . DIRECTED Chest 1V Frontal [CR] Stat 05/07/21 21:38 RT Aerosol Therapy [RC] ASDIRECTED 05/07/21 21:53 C-REACTIVE PROTEIN [CHEM] Stat COMPREHENSIVE METABOLIC PN,CMP [CHEM] Stat PRO B-TYPE NATRIUR PEPT,BNPPRO [CHEM] Stat TROPONIN I HIGH SENSITIVITY [CHEM] Stat - Assessment/Plan Last 24 Hours: My Active Orders 05/07/21 21:37 Cardiac Monitoring [RC] . DIRECTED Chest 1V Frontal [CR] Stat 05/07/21 21:38 RT Aerosol Therapy [RC] ASDIRECTED 05/07/21 21:53 C-REACTIVE PROTEIN [CHEM] Stat COMPREHENSIVE METABOLIC PN,CMP [CHEM] Stat PRO B-TYPE NATRIUR PEPT,BNPPRO [CHEM] Stat TROPONIN I HIGH SENSITIVITY [CHEM] Stat
[2021-05-07 22:27] LABS: CORONAVIRUS COVID-19 NAA NEGATIVE (NEGATIVE)
[2021-05-07 22:28] LABS: RESPIRATORY SYNCYTIAL VIR NAA NEGATIVE (NEGATIVE)
[2021-05-07 22:28] LABS: CHLORIDE,CL 101 mmol/L (98-107); SODIUM,NA 137 mmol/L (136-145)
--- NOTE | 2021-05-08 09:00 | CR ---
[id number] RAD/RAD Chest Portable EXAM: PORTABLE CHEST INDICATION: Shortness of breath. COMPARISON: April 10, 2021. DISCUSSION: Stable linear scarring in the right midlung. Normal heart size. No acute infiltrates. No effusions. IMPRESSION: 1. No acute findings. Mike Abad MD 05/08/21 [id number] Thank you for allowing us to participate in the care of your patient.
== END 2021-05-07 23:00 | disposition home or self-care (01) ==
LOC: VM.ED 21:27
DX: J44.9 Chronic obstructive pulmonary disease, unspecified (principal); E11.69 Type 2 diabetes mellitus with other specified complication; I44.4 Left anterior fascicular block; Z72.0 Tobacco use; Z88.7 Allergy status to serum and vaccine; Z88.1 Allergy status to other antibiotic agents; Z79.4 Long term (current) use of insulin; Z79.899 Other long term (current) drug therapy; Z20.822 Contact with and (suspected) exposure to COVID-19
CPT/HCPCS: 0241U; 36415; 71045; 80053; 83605; 83880; 84484; 85025; 86140; 93005; 99285

== ENCOUNTER 2021-07-03 16:47 | Emergency (ER) | payer MEDICAID ==
[2021-07-03] MEDS ORDERED: Sodium Chloride 0.9% 10 ML Syringe FLUSH PRN (17:05)
[2021-07-03 17:35] LABS: CHLORIDE,CL 103 mmol/L (98-107); SODIUM,NA 138 mmol/L (136-145)
[2021-07-03 17:36] LABS: ANION GAP 10.7 mmol/L (5-15)
[2021-07-03] MEDS ORDERED: Ondansetron 4 MG/2 ML SDV IVPUSH ONE (17:40)
[2021-07-03] MEDS ORDERED: Take Home: Ondansetron 4 MG Tab.DIS, 5 Tab Pack PO ONE (18:02)
== END 2021-07-03 18:15 | disposition home or self-care (01) ==
LOC: VM.ED 16:47
DX: K52.9 Noninfective gastroenteritis and colitis, unspecified (principal); E11.649 Type 2 diabetes mellitus with hypoglycemia without coma; J44.9 Chronic obstructive pulmonary disease, unspecified; Z88.1 Allergy status to other antibiotic agents; Z88.7 Allergy status to serum and vaccine; Z79.4 Long term (current) use of insulin; Z79.899 Other long term (current) drug therapy; Z20.822 Contact with and (suspected) exposure to COVID-19
CPT/HCPCS: 36415; 80053; 83735; 84100; 85025; 86140; 96374; 99284; 99284-25; J2405; Q0162; U0002

== ENCOUNTER 2021-07-04 11:49 | Emergency (ER) | payer MEDICAID ==
[2021-07-04] MEDS ORDERED: Sodium Chloride 0.9% 10 ML Syringe FLUSH PRN (11:54)
[2021-07-04] MEDS ORDERED: Ondansetron 4 MG/2 ML SDV IVPUSH ONE (11:59)
[2021-07-04] MEDS ORDERED: Morphine 4 MG/ML Syringe IVPUSH ONE (11:59)
[2021-07-04 12:28] LABS: PTT,PARTIAL THROMBOPLSTIN TIME 24.1 SEC (20.5-30.9)
[2021-07-04 12:31] LABS: CHLORIDE,CL 101 mmol/L (98-107); SODIUM,NA 136 mmol/L (136-145)
[2021-07-04 12:32] LABS: ANION GAP 9.8 mmol/L (5-15)
[2021-07-04] MEDS ORDERED: Iopamidol 612 MG/ML 100 ML Bottle IVPUSH ONE (13:48)
== END 2021-07-04 14:10 | disposition home or self-care (01) ==
LOC: VM.ED 11:49
DX: K52.9 Noninfective gastroenteritis and colitis, unspecified (principal); E11.9 Type 2 diabetes mellitus without complications; J44.9 Chronic obstructive pulmonary disease, unspecified; Z88.7 Allergy status to serum and vaccine; Z88.8 Allergy status to other drugs, medicaments and biological substances; Z79.4 Long term (current) use of insulin; Z79.899 Other long term (current) drug therapy; Z87.891 Personal history of nicotine dependence
CPT/HCPCS: 74177; 80053; 81001; 82150; 83605; 83690; 83735; 84100; 85025; 85610; 85730; 86140; 96374; 96375; 99284; 99285-25; J2270; J2405; Q9967

== ENCOUNTER 2021-07-08 10:07 | Emergency (ER) | payer MEDICAID ==
[2021-07-08] MEDS ORDERED: Sodium Chloride 0.9% 10 ML Syringe FLUSH PRN (10:42)
[2021-07-08] MEDS ORDERED: Aspirin 81 MG Tab.Chew PO ONE (10:52)
[2021-07-08 11:21] LABS: CHLORIDE,CL 100 mmol/L (98-107); SODIUM,NA 137 mmol/L (136-145)
[2021-07-08] MEDS ORDERED: Morphine 2 MG/ML SYRINGE IVPUSH ONE ×2 (11:21→12:43)
[2021-07-08 11:22] LABS: ANION GAP 12.6 mmol/L (5-15)
[2021-07-08] MEDS ORDERED: Sodium Chloride 0.9% 1,000 ML IV ONE (12:43)
== END 2021-07-08 14:00 | disposition home or self-care (01) ==
LOC: VM.ED 10:07
DX: R10.30 Lower abdominal pain, unspecified (principal); E11.9 Type 2 diabetes mellitus without complications; J44.9 Chronic obstructive pulmonary disease, unspecified; Z88.7 Allergy status to serum and vaccine; Z88.8 Allergy status to other drugs, medicaments and biological substances; Z79.4 Long term (current) use of insulin; Z79.899 Other long term (current) drug therapy; Z20.822 Contact with and (suspected) exposure to COVID-19
CPT/HCPCS: 36415; 71045; 80053; 81001; 83605; 83735; 84484; 85025; 86140; 87040; 93005; 93010; 96374; 96376; 99284; 99285-25; A9270-GY; J2270; J7030; U0002

== ENCOUNTER 2021-08-03 09:59 | Emergency (ER) | payer MEDICAID ==
[2021-08-03] MEDS ORDERED: Albuterol/Ipratropium 3.0-0.5 MG/3 ML Neb Soln NEB ONE (10:07)
[2021-08-03 10:49] LABS: CHLORIDE,CL 103 mmol/L (98-107); SODIUM,NA 140 mmol/L (136-145)
== END 2021-08-03 11:51 | disposition home or self-care (01) ==
LOC: VM.ED 09:59
DX: R07.89 Other chest pain (principal); Z72.0 Tobacco use
CPT/HCPCS: 36415; 71045; 80053; 82550; 83615; 84484; 85025; 85379; 86140; 93010; 94640; 99284; 99285-25; J7620-GY

== ENCOUNTER 2021-08-10 17:36 | Emergency (ER) | payer MEDICAID ==
[2021-08-10] MEDS ORDERED: Sodium Chloride 0.9% 10 ML Syringe FLUSH PRN (17:45)
[2021-08-10] MEDS ORDERED: methylPREDNISolone Sodium Succinate 125 MG/2 ML SDV IVPUSH ONE (17:48)
[2021-08-10 18:19] LABS: CHLORIDE,CL 102 mmol/L (98-107); SODIUM,NA 138 mmol/L (136-145)
[2021-08-10 18:21] LABS: ANION GAP 9.9 mmol/L (5-15)
[2021-08-10] MEDS ORDERED: Ketorolac 15 MG/ML SDV IVPUSH ONE (18:30)
[2021-08-10] MEDS ORDERED: Take Home: Doxycycline 100 MG Tab, 4 Tab Pack PO ONE (18:32)
== END 2021-08-10 19:00 | disposition home or self-care (01) ==
LOC: VM.ED 17:36
DX: J44.1 Chronic obstructive pulmonary disease with (acute) exacerbation (principal); E11.9 Type 2 diabetes mellitus without complications; Z79.4 Long term (current) use of insulin; Z79.899 Other long term (current) drug therapy
CPT/HCPCS: 36415; 71045; 80053; 84484; 85025; 93010; 96374; 96375; 99284; 99285-25; A9270-GY; J1885; J2930

== ENCOUNTER 2021-08-14 18:00 | Emergency (ER) | payer MEDICAID | END 2021-08-14 19:20 | disposition home or self-care (01) | LOC: VM.ED 18:00 | DX: R33.9 Retention of urine, unspecified (principal); J44.9 Chronic obstructive pulmonary disease, unspecified; E11.9 Type 2 diabetes mellitus without complications; Z88.7 Allergy status to serum and vaccine; Z88.8 Allergy status to other drugs, medicaments and biological substances; Z79.899 Other long term (current) drug therapy; Z79.4 Long term (current) use of insulin; Z72.0 Tobacco use | CPT/HCPCS: 51798; 81002; 99284; 99284-25 ==

== ENCOUNTER 2021-09-24 11:23 | Emergency (ER) | payer MEDICAID ==
[2021-09-24] MEDS ORDERED: Albuterol/Ipratropium 3.0-0.5 MG/3 ML Neb Soln NEB ONE (11:57)
== END 2021-09-24 12:23 | disposition home or self-care (01) ==
LOC: VM.ED 11:23
DX: J44.9 Chronic obstructive pulmonary disease, unspecified (principal); I50.9 Heart failure, unspecified; E11.9 Type 2 diabetes mellitus without complications; F17.210 Nicotine dependence, cigarettes, uncomplicated; Z79.899 Other long term (current) drug therapy; Z79.4 Long term (current) use of insulin; Z88.1 Allergy status to other antibiotic agents; Z88.7 Allergy status to serum and vaccine
CPT/HCPCS: 99284; J7620-GY

== ENCOUNTER 2021-09-28 20:41 | Emergency (ER) | payer MEDICAID ==
[2021-09-28] MEDS ORDERED: Insulin Glarg,Human.Rec.Analog 100 Unit/ML SUBCUT ONE (21:04)
== END 2021-09-28 22:00 | disposition home or self-care (01) ==
LOC: VM.ED 20:41
DX: E11.65 Type 2 diabetes mellitus with hyperglycemia (principal); J44.9 Chronic obstructive pulmonary disease, unspecified; I50.9 Heart failure, unspecified; E11.9 Type 2 diabetes mellitus without complications; F17.210 Nicotine dependence, cigarettes, uncomplicated; Z79.899 Other long term (current) drug therapy; Z79.4 Long term (current) use of insulin; Z88.7 Allergy status to serum and vaccine; Z88.1 Allergy status to other antibiotic agents
CPT/HCPCS: 82947; 93010; 99284; 99285

== ENCOUNTER 2021-10-23 21:40 | Emergency (ER) | payer MEDICAID ==
[2021-10-23] MEDS ORDERED: Ondansetron 4 MG/2 ML SDV IVPUSH ONE (21:51)
[2021-10-23] MEDS ORDERED: Sodium Chloride 0.9% 1,000 ML IV SCH (22:00)
[2021-10-23 22:35] LABS: PTT,PARTIAL THROMBOPLSTIN TIME 25.1 SEC (20.5-30.9)
[2021-10-23 22:42] LABS: ANION GAP 12.9 mmol/L (5-15)
[2021-10-23] MEDS ORDERED: Metoclopramide 10 MG/2 ML SDV IVPUSH ONE (22:50)
== END 2021-10-23 23:30 | disposition home or self-care (01) ==
LOC: VM.ED 21:40
DX: E86.0 Dehydration (principal); E11.65 Type 2 diabetes mellitus with hyperglycemia; R11.2 Nausea with vomiting, unspecified; J44.9 Chronic obstructive pulmonary disease, unspecified; Z88.7 Allergy status to serum and vaccine; Z88.8 Allergy status to other drugs, medicaments and biological substances; Z79.4 Long term (current) use of insulin; Z79.899 Other long term (current) drug therapy; Z87.891 Personal history of nicotine dependence
CPT/HCPCS: 36415; 71045; 80053; 80307; 83605; 83735; 84100; 84484; 85025; 85610; 85730; 86140; 87040; 93005; 96374; 96375; 99284; 99285-25; J2405; J2765; J7030

== ENCOUNTER 2021-11-27 12:11 | Emergency (ER) | payer MEDICAID ==
[2021-11-27 13:02] LABS: CHLORIDE,CL 100 mmol/L (98-107); SODIUM,NA 135 mmol/L (136-145)
[2021-11-27 13:05] LABS: ANION GAP 11.6 mmol/L (5-15); ESTIMATED GFR 75 mL/min (>=60)
[2021-11-27] MEDS ORDERED: Glucagon,Human Recombinant 1 MG Vial IM PRN (13:16)
[2021-11-27] MEDS ORDERED: 50% Dextrose in Water 50 ML Syringe IVPUSH PRN (13:16)
[2021-11-27] MEDS ORDERED: Insulin Regular, Human 100 Units/ML 3 ML Vial SUBCUT ONE (13:17)
== END 2021-11-27 15:01 | disposition home or self-care (01) ==
LOC: VM.ED 12:11
DX: R53.1 Weakness (principal); J44.9 Chronic obstructive pulmonary disease, unspecified; E11.9 Type 2 diabetes mellitus without complications; Z88.7 Allergy status to serum and vaccine; Z88.8 Allergy status to other drugs, medicaments and biological substances; Z79.4 Long term (current) use of insulin; Z79.899 Other long term (current) drug therapy
CPT/HCPCS: 36415; 71045; 80053; 85025; 86140; 99284; 99285; J1815-GY

== ENCOUNTER 2022-01-01 07:48 | Inpatient (IN) | payer MEDICAID ==
[2022-01-01] MEDS ORDERED: Sodium Chloride 0.9% 10 ML Syringe FLUSH PRN (08:07)
[2022-01-01] MEDS ORDERED: Acetaminophen 500 MG Tab PO ONE (08:10)
[2022-01-01] MEDS ORDERED: Acetaminophen/HYDROcodone 325-5 MG Tab PO ONE (09:05)
[2022-01-01 09:08] LABS: ANION GAP 12.8 mmol/L (5-15)
[2022-01-01 09:11] LABS: PCO2 ARTERIAL,POC 24 mmHg (35-48)
[2022-01-01] MEDS ORDERED: cefTRIAXone 2 GM Vial IVPUSH ONE (09:27)
[2022-01-01] MEDS ORDERED: Azithromycin 500 MG in Sodium Chloride 0.9% 250 ML IV ONE (09:28)
[2022-01-01] MEDS ORDERED: methylPREDNISolone Sodium Succinate 125 MG/2 ML SDV IV ONE (09:29)
[2022-01-01] MEDS ORDERED: Sodium Chloride 0.9% 1,000 ML IV SCH ×2 (09:45→12:00)
[2022-01-01] MEDS ORDERED: Albuterol/Ipratropium 3.0-0.5 MG/3 ML Neb Soln NEB ONE (09:47)
[2022-01-01 10:03] LABS: CORONAVIRUS COVID-19 NAA NEGATIVE (NEGATIVE); RESPIRATORY SYNCYTIAL VIR NAA NEGATIVE (NEGATIVE)
[2022-01-01] MEDS ORDERED: 50% Dextrose in Water 50 ML Syringe IVPUSH PRN (11:53)
[2022-01-01] MEDS ORDERED: Albuterol/Ipratropium 3.0-0.5 MG/3 ML Neb Soln NEB PRN (11:53)
[2022-01-01] MEDS ORDERED: Glucagon,Human Recombinant 1 MG Vial IM PRN (11:53)
[2022-01-01] MEDS ORDERED: Celecoxib 100 MG Cap PO PRN (11:53)
[2022-01-01] MEDS ORDERED: Albuterol 0.083% 2.5 MG/3 ML Neb Soln INH PRN (12:31)
[2022-01-01] MEDS: Insulin Lispro 100 Units/ML 3 ML Vial SUBCUT SCH ×2 (13:08→18:00)
[2022-01-01] MEDS: Albuterol/Ipratropium 3.0-0.5 MG/3 ML Neb Soln NEB SCH ×5 (15:54→22:30)
[2022-01-01] MEDS: Omeprazole 20 MG Cap.CR PO SCH ×2 (17:56→18:18)
[2022-01-01] MEDS: Acetaminophen 325 MG Tab PO PRN ×2 (17:57→18:35)
[2022-01-01] MEDS: Acetaminophen/HYDROcodone 325-5 MG Tab PO PRN (19:47)
[2022-01-01] MEDS: Pregabalin 50 MG Cap PO SCH (20:07)
[2022-01-01] MEDS: Formoterol/Mometasone 200-5 MCG 13 GM Inhaler INH SCH (20:14)
[2022-01-01] MEDS ORDERED: atorvaSTATin 40 MG Tab PO SCH (21:00)
[2022-01-01] MEDS ORDERED: Insulin Glarg,Human.Rec.Analog 100 Unit/ML SUBCUT SCH (21:00)
[2022-01-01] MEDS ORDERED: Take Home: Azithromycin 250 MG, 2 Tab Pack PO ONE (22:28)
[2022-01-01] MEDS ORDERED: Take Home: predniSONE 20 MG, 2 Tab Pack PO ONE (22:29)
[2022-01-02] MEDS: Albuterol/Ipratropium 3.0-0.5 MG/3 ML Neb Soln NEB SCH ×2 (02:19→06:24)
[2022-01-02] MEDS: Acetaminophen/HYDROcodone 325-5 MG Tab PO PRN (02:19)
[2022-01-02] MEDS: Omeprazole 20 MG Cap.CR PO SCH (06:25)
[2022-01-02] MEDS: Insulin Lispro 100 Units/ML 3 ML Vial SUBCUT SCH (08:05)
[2022-01-02] MEDS: Pregabalin 50 MG Cap PO SCH (08:13)
[2022-01-02] MEDS: Formoterol/Mometasone 200-5 MCG 13 GM Inhaler INH SCH (08:17)
[2022-01-02 08:39] LABS: ANION GAP 13.9 mmol/L (5-15)
[2022-01-02] MEDS ORDERED: Metoprolol Succinate 25 MG Tab.ER PO SCH (09:00)
[2022-01-02] MEDS ORDERED: Losartan 50 MG Tab PO SCH (09:00)
[2022-01-02] MEDS ORDERED: Tamsulosin 0.4 MG Cap.ER PO SCH (09:00)
[2022-01-02] MEDS ORDERED: Azithromycin 500 MG in Sodium Chloride 0.9% 250 ML IV SCH (09:00)
[2022-01-02] MEDS ORDERED: Finasteride 5 MG Tab PO SCH (09:00)
[2022-01-02] MEDS ORDERED: amLODIPine 5 MG Tab PO SCH (09:00)
[2022-01-02] MEDS ORDERED: methylPREDNISolone Sodium Succinate 40 MG/1 ML SDV IVPUSH SCH (09:00)
[2022-01-02] MEDS ORDERED: Hydrochlorothiazide 25 MG Tab PO SCH (09:00)
[2022-01-02] MEDS ORDERED: cefTRIAXone 1 GM Vial IVPUSH SCH (09:00)
== END 2022-01-02 10:00 | disposition left against medical advice (07) | DRG 871 ==
LOC: VM.ED 07:48 → VM.MS 09:45
PROVIDERS: ADMIT Nurse Practitioner Family; ATTEND Family Medicine
DX: A41.9 Sepsis, unspecified organism (principal); R09.02 Hypoxemia; J18.9 Pneumonia, unspecified organism; F17.210 Nicotine dependence, cigarettes, uncomplicated; J44.0 Chronic obstructive pulmonary disease with (acute) lower respiratory infection; E11.9 Type 2 diabetes mellitus without complications; J44.1 Chronic obstructive pulmonary disease with (acute) exacerbation; E87.2 Acidosis; F33.9 Major depressive disorder, recurrent, unspecified; Z53.29 Procedure and treatment not carried out because of patient's decision for other reasons; Z20.822 Contact with and (suspected) exposure to COVID-19; E11.621 Type 2 diabetes mellitus with foot ulcer; L97.509 Non-pressure chronic ulcer of other part of unspecified foot with unspecified severity; R33.9 Retention of urine, unspecified; M54.50 Low back pain, unspecified; E11.65 Type 2 diabetes mellitus with hyperglycemia; F41.1 Generalized anxiety disorder; F12.90 Cannabis use, unspecified, uncomplicated; F17.220 Nicotine dependence, chewing tobacco, uncomplicated; Z89.511 Acquired absence of right leg below knee; Z88.7 Allergy status to serum and vaccine; Z79.899 Other long term (current) drug therapy; Z79.51 Long term (current) use of inhaled steroids; I50.9 Heart failure, unspecified; Z79.4 Long term (current) use of insulin; Z88.8 Allergy status to other drugs, medicaments and biological substances
CPT/HCPCS: 0241U; 36415; 36600; 71045; 80053; 82803; 82947; 83605; 83735; 83880; 84484; 85025; 85610; 85730; 86140; 87040; 93005; A9270-GY; J0456; J0696; J1815-GY; J2920; J2930; J7030; J7050; J7512; J7620-GY

== ENCOUNTER 2022-01-06 06:37 | Emergency (ER) | payer MEDICAID ==
[2022-01-06 07:40] LABS: CHLORIDE,CL 103 mmol/L (98-107); SODIUM,NA 138 mmol/L (136-145)
[2022-01-06 07:41] LABS: ANION GAP 9.8 mmol/L (5-15); ESTIMATED GFR 62 mL/min (>=60)
== END 2022-01-06 08:38 | disposition home or self-care (01) ==
LOC: VM.ED 06:37
DX: J20.9 Acute bronchitis, unspecified (principal); J44.9 Chronic obstructive pulmonary disease, unspecified; E11.9 Type 2 diabetes mellitus without complications; F17.210 Nicotine dependence, cigarettes, uncomplicated; Z88.7 Allergy status to serum and vaccine; Z88.8 Allergy status to other drugs, medicaments and biological substances; Z79.899 Other long term (current) drug therapy; Z79.4 Long term (current) use of insulin
CPT/HCPCS: 36415; 71045; 80053; 85025; 86140; 99284

== ENCOUNTER 2022-01-11 14:44 | Emergency (ER) | payer MEDICAID ==
[2022-01-11] MEDS ORDERED: Sodium Chloride 0.9% 10 ML Syringe FLUSH PRN (14:49)
[2022-01-11 15:33] LABS: CHLORIDE,CL 105 mmol/L (98-107); SODIUM,NA 141 mmol/L (136-145)
[2022-01-11 15:36] LABS: ANION GAP 14.8 mmol/L (5-15); ESTIMATED GFR 75 mL/min (>=60)
[2022-01-11] MEDS ORDERED: Dexamethasone 4 MG/ML SDV IVPUSH ONE (15:44)
== END 2022-01-11 16:40 | disposition home or self-care (01) ==
LOC: VM.ED 14:44
DX: R07.81 Pleurodynia (principal); R05.9 Cough, unspecified; J44.9 Chronic obstructive pulmonary disease, unspecified; E11.9 Type 2 diabetes mellitus without complications; Z88.7 Allergy status to serum and vaccine; Z88.8 Allergy status to other drugs, medicaments and biological substances; Z79.4 Long term (current) use of insulin; Z79.899 Other long term (current) drug therapy
CPT/HCPCS: 71045; 80053; 83880; 84484; 85025; 85610; 96374; 99284; 99285; J1100

== ENCOUNTER 2022-02-16 11:00 | Emergency (ER) | payer MEDICAID ==
[2022-02-16] MEDS ORDERED: Sodium Chloride 0.9% 10 ML Syringe FLUSH PRN (11:01)
[2022-02-16 12:05] LABS: PTT,PARTIAL THROMBOPLSTIN TIME 26.5 SEC (20.5-30.9)
[2022-02-16 12:06] LABS: CHLORIDE,CL 106 mmol/L (98-107); SODIUM,NA 141 mmol/L (136-145)
[2022-02-16 12:07] LABS: ANION GAP 8.7 mmol/L (5-15); ESTIMATED GFR 85 mL/min (>=60)
[2022-02-16] MEDS: methylPREDNISolone Sodium Succinate 125 MG/2 ML SDV IV ONE (12:15)
[2022-02-16] MEDS: cefTRIAXone 2 GM Vial IVPUSH ONE (12:17)
[2022-02-16 12:19] LABS: CORONAVIRUS COVID-19 NAA NEGATIVE (NEGATIVE); RESPIRATORY SYNCYTIAL VIR NAA NEGATIVE (NEGATIVE)
[2022-02-16] MEDS: Doxycycline Monohydrate 100 MG Cap PO ONE (12:20)
== END 2022-02-16 13:54 | disposition home or self-care (01) ==
LOC: VM.ED 11:00
DX: J44.1 Chronic obstructive pulmonary disease with (acute) exacerbation (principal); E11.9 Type 2 diabetes mellitus without complications; I50.9 Heart failure, unspecified; Z20.822 Contact with and (suspected) exposure to COVID-19; Z88.8 Allergy status to other drugs, medicaments and biological substances; Z79.4 Long term (current) use of insulin; Z79.899 Other long term (current) drug therapy
CPT/HCPCS: 0241U; 36415; 80053; 83605; 83735; 83880; 84100; 84484; 85025; 85610; 85730; 86140; 87040; 93005; 94760; 96374; 96375; 99285; A9270; J0696; J2930; 93010; 99284

== ENCOUNTER 2022-10-12 02:16 | Emergency (ER) | payer MEDICAID ==
[2022-10-12] MEDS ORDERED: Sodium Chloride 0.9% 10 ML Syringe FLUSH PRN (02:28)
[2022-10-12] MEDS ORDERED: methylPREDNISolone Sodium Succinate 125 MG/2 ML SDV IV ONE (02:31)
[2022-10-12] MEDS ORDERED: Albuterol/Ipratropium 3.0-0.5 MG/3 ML Neb Soln NEB ONE (02:32)
[2022-10-12 03:02] LABS: BASOPHILS PERCENT AUTO 0.3 % (0.2-1.2); EOSINOPHILS PERCENT AUTO 0.2 % (0.0-4.0); HEMATOCRIT 35.9 % (40.0-52.0); HEMOGLOBIN 11.9 g/dL (14.0-18.0); IMMATURE GRAN ABSOLUTE AUTO 0.05 x10^3/uL (0.00-0.07); LYMPHOCYTES ABSOLUTE AUTO 0.9 x10^3/uL (1.0-4.8); LYMPHOCYTES PERCENT AUTO 8.6 % (25.0-50.0); MEAN CORPUSCULAR HEMOGLOBIN 27.1 pg (26.0-32.0); MEAN CORPUSCULAR HGB CONC 33.1 g/dL (32.0-36.0); MEAN CORPUSCULAR VOLUME 81.8 fL (78.0-93.0); MONOCYTES ABSOLUTE AUTO 0.8 x10^3/uL (0.0-0.8); MONOCYTES PERCENT AUTO 8.2 % (2.0-11.0); NEUTROPHILS ABSOLUTE AUTO 8.4 x10^3/uL (1.8-7.7); NEUTROPHILS PERCENT AUTO 82.2 % (50.0-80.0); PLATELET COUNT,PLT 145 x10^3/uL (130-400); RED BLOOD CELL COUNT 4.39 x10^6/uL (4.5-6.0); WHITE BLOOD CELL COUNT,WBC 10.2 x10^3/uL (4.0-10.0)
[2022-10-12 03:05] LABS: HCO3 VENOUS,POC 27 mmol/L (22-29); O2 SATURATION VENOUS,POC 76 %; PCO2 VENOUS,POC 46 mmHg (41-51); PH VENOUS,POC 7.38 pH (7.32-7.43); PO2 VENOUS,POC 42 mmHg
[2022-10-12 03:24] LABS: PROTHROMBIN TIME 10.9 SEC (9.5-12.2)
[2022-10-12 03:29] LABS: LACTIC ACID 0.7 mmol/L (0.4-2.0)
[2022-10-12 03:30] LABS: ALANINE AMINOTRANSFERASE,ALT 21 U/L (16-63); ALBUMIN 2.4 g/dL (3.4-5.0); ALKALINE PHOSPHATASE 88 U/L (46-116); ASPARTATE AMNIOTRANSFERASE,AST 16 U/L (15-37); BILIRUBIN TOTAL 0.5 mg/dL (0.2-1.0); BLOOD UREA NITROGEN,BUN 63 mg/dL (7-18); C-REACTIVE PROTEIN 9.6 mg/dL (<=0.9); CALCIUM 8.3 mg/dL (8.5-10.1); CARBON DIOXIDE,CO2 30 mmol/L (21-32); CHLORIDE,CL 106 mmol/L (98-107); CREATININE 2.1 mg/dL (0.70-1.30); GLUCOSE RANDOM 70 mg/dL (70-99); MAGNESIUM 1.6 mg/dL (1.8-2.4); POTASSIUM,K 4.2 mmol/L (3.5-5.1); PROTEIN TOTAL,TP 6.4 g/dL (6.4-8.2); SODIUM,NA 144 mmol/L (136-145)
[2022-10-12 03:33] LABS: ANION GAP 12.2 mmol/L (5-15); ESTIMATED GFR 35 mL/min (>=60)
[2022-10-12] MEDS ORDERED: cefTRIAXone 1 GM Vial IVPUSH ONE (03:51)
[2022-10-12] MEDS ORDERED: Doxycycline Monohydrate 100 MG Cap PO ONE (03:59)
== END 2022-10-12 04:45 ==
LOC: VM.ED 02:16
DX: J44.1 Chronic obstructive pulmonary disease with (acute) exacerbation (principal); I50.9 Heart failure, unspecified; E11.9 Type 2 diabetes mellitus without complications; Z79.4 Long term (current) use of insulin; Z88.8 Allergy status to other drugs, medicaments and biological substances; Z88.7 Allergy status to serum and vaccine; Z79.899 Other long term (current) drug therapy
CPT/HCPCS: 36415; 71045; 80053; 82803; 83605; 83735; 84484; 85025; 85610; 85730; 86140; 87040; 93005; 93010; 94640; 96374; 96375; 99284; 99285-25; A9270-GY; J0696; J2930; J7620-GY

== ENCOUNTER 2022-10-31 12:38 | Emergency (ER) | payer MEDICAID ==
[2022-10-31] MEDS ORDERED: Sodium Chloride 0.9% 10 ML Syringe FLUSH PRN (12:44)
[2022-10-31 13:09] LABS: BASOPHILS PERCENT AUTO 0.2 % (0.2-1.2); EOSINOPHILS ABSOLUTE AUTO 0.1 x10^3/uL (0.0-0.5); EOSINOPHILS PERCENT AUTO 0.6 % (0.0-4.0); HEMOGLOBIN 13.3 g/dL (14.0-18.0); IMMATURE GRAN ABSOLUTE AUTO 0.03 x10^3/uL (0.00-0.07); LYMPHOCYTES ABSOLUTE AUTO 0.3 x10^3/uL (1.0-4.8); LYMPHOCYTES PERCENT AUTO 3.2 % (25.0-50.0); MEAN CORPUSCULAR HEMOGLOBIN 27.3 pg (26.0-32.0); MEAN CORPUSCULAR HGB CONC 34.1 g/dL (32.0-36.0); MEAN CORPUSCULAR VOLUME 79.9 fL (78.0-93.0); MONOCYTES ABSOLUTE AUTO 0.6 x10^3/uL (0.0-0.8); MONOCYTES PERCENT AUTO 5.6 % (2.0-11.0); NEUTROPHILS ABSOLUTE AUTO 9.7 x10^3/uL (1.8-7.7); NEUTROPHILS PERCENT AUTO 90.1 % (50.0-80.0); RED BLOOD CELL COUNT 4.88 x10^6/uL (4.5-6.0); WHITE BLOOD CELL COUNT,WBC 10.7 x10^3/uL (4.0-10.0)
[2022-10-31] MEDS ORDERED: cefTRIAXone 2 GM Vial IVPUSH ONE (13:09)
[2022-10-31] MEDS ORDERED: methylPREDNISolone Sodium Succinate 125 MG/2 ML SDV IVPUSH ONE (13:10)
[2022-10-31 13:21] LABS: BASE EXCESS ARTERIAL,POC 4 mmol/L ((-2)-3); HCO3 ARTERIAL,POC 28.3 mmol/L (21-28); O2 SATURATION ARTERIAL,POC 96.5 % (94-98); PCO2 ARTERIAL,POC 42 mmHg (35-48); PH ARTERIAL,POC 7.43 pH (7.35-7.45); PO2 ARTERIAL,POC 84 mmHg (83-108); TCO2 ARTERIAL,POC 28.2 mmol/L (22-29)
[2022-10-31 13:24] LABS: PLATELET COUNT,PLT 124 x10^3/uL (130-400)
[2022-10-31 13:29] LABS: LACTIC ACID 1.1 mmol/L (0.4-2.0)
[2022-10-31 13:36] LABS: PROTHROMBIN TIME 10.4 SEC (9.5-12.2); PTT,PARTIAL THROMBOPLSTIN TIME 28.1 SEC (23.6-33.6)
[2022-10-31 13:45] LABS: A/G RATIO 0.74; ALANINE AMINOTRANSFERASE,ALT 25 U/L (16-63); ALBUMIN 3.1 g/dL (3.4-5.0); ALKALINE PHOSPHATASE 135 U/L (46-116); ASPARTATE AMNIOTRANSFERASE,AST 17 U/L (15-37); BILIRUBIN TOTAL 0.5 mg/dL (0.2-1.0); BLOOD UREA NITROGEN,BUN 35 mg/dL (7-18); C-REACTIVE PROTEIN 3.04 mg/dL (<=0.30); CALCIUM 8.8 mg/dL (8.5-10.1); CARBON DIOXIDE,CO2 31 mmol/L (21-32); CHLORIDE,CL 104 mmol/L (98-107); CREATININE 1.5 mg/dL (0.70-1.30); GLUCOSE RANDOM 67 mg/dL (70-99); MAGNESIUM 1.6 mg/dL (1.8-2.4); POTASSIUM,K 4.1 mmol/L (3.5-5.1); PRO B-TYPE NATRIUR PEPT,BNPPRO 638 pg/mL (<=125); PROTEIN TOTAL,TP 7.3 g/dL (6.4-8.2); SODIUM,NA 143 mmol/L (136-145)
[2022-10-31 13:47] LABS: ANION GAP 12.1 mmol/L (5-15); ESTIMATED GFR 52 mL/min (>=60)
[2022-10-31] MEDS ORDERED: VANCOmycin 2 GM/400 ML 2 GM in Premix Bag 1 BAG IV ONE (13:54)
[2022-10-31 14:09] LABS: APPEARANCE,URINE CLEAR (CLEAR); BILIRUBIN,URINE NEGATIVE (NEGATIVE); COLOR,URINE YELLOW (YELLOW); GLUCOSE,URINE NEGATIVE (NEGATIVE); KETONES,URINE NEGATIVE (NEGATIVE); LEUKOCYTE ESTERASE,URINE NEGATIVE (NEGATIVE); NITRITE,URINE NEGATIVE (NEGATIVE); OCCULT BLOOD,URINE TRACE-INTACT (NEGATIVE); PH,URINE 5.5 (5.0-8.0); PROTEIN,URINE 100 mg/dL (NEGATIVE); UROBILINOGEN,URINE 0.2 EU/dL (0.2)
[2022-10-31 14:17] LABS: CORONAVIRUS COVID-19 NAA NEGATIVE (NEGATIVE); INFLUENZA A NAA NEGATIVE (NEGATIVE); INFLUENZA B NAA NEGATIVE (NEGATIVE); RESPIRATORY SYNCYTIAL VIR NAA NEGATIVE (NEGATIVE)
[2022-10-31 14:18] LABS: BACTERIA,URINE RARE /HPF (NOT SEEN); MUCUS,URINE FEW /LPF (NOT SEEN); RBC,URINE 0-5 /HPF (NOT SEEN); SQUAMOUS EPITHELIAL CELLS,UR FEW /HPF (NOT SEEN); WBC,URINE 0-5 /HPF (NOT SEEN)
[2022-10-31] MEDS ORDERED: Sodium Chloride 0.9% 1,000 ML IV SCH (14:45)
== END 2022-10-31 16:20 | disposition short-term general hospital (02) ==
LOC: VM.ED 12:38
DX: L03.116 Cellulitis of left lower limb (principal); I50.9 Heart failure, unspecified; E11.9 Type 2 diabetes mellitus without complications; J44.1 Chronic obstructive pulmonary disease with (acute) exacerbation; Z88.7 Allergy status to serum and vaccine
CPT/HCPCS: 0241U; 36415; 36600; 70450; 71045; 80053; 81001; 82140; 82803; 83605; 83735; 83880; 84484; 85025; 85610; 85730; 86140; 87040; 93005; 93010; 96365; 96366; 96375; 99284; 99285; J0696; J2930; J3370; J7030

== ENCOUNTER 2022-11-14 01:48 | Emergency (ER) | payer MEDICAID ==
[2022-11-14 02:22] LABS: BASOPHILS PERCENT AUTO 0.4 % (0.2-1.2); EOSINOPHILS ABSOLUTE AUTO 0.2 x10^3/uL (0.0-0.5); EOSINOPHILS PERCENT AUTO 2.3 % (0.0-4.0); HEMATOCRIT 34.6 % (40.0-52.0); HEMOGLOBIN 11.6 g/dL (14.0-18.0); IMMATURE GRAN ABSOLUTE AUTO 0.08 x10^3/uL (0.00-0.07); LYMPHOCYTES ABSOLUTE AUTO 1.3 x10^3/uL (1.0-4.8); MEAN CORPUSCULAR HEMOGLOBIN 27.4 pg (26.0-32.0); MEAN CORPUSCULAR HGB CONC 33.5 g/dL (32.0-36.0); MEAN CORPUSCULAR VOLUME 81.8 fL (78.0-93.0); MONOCYTES ABSOLUTE AUTO 0.8 x10^3/uL (0.0-0.8); MONOCYTES PERCENT AUTO 10.5 % (2.0-11.0); NEUTROPHILS PERCENT AUTO 67.7 % (50.0-80.0); PLATELET COUNT,PLT 172 x10^3/uL (130-400); RED BLOOD CELL COUNT 4.23 x10^6/uL (4.5-6.0); WHITE BLOOD CELL COUNT,WBC 7.4 x10^3/uL (4.0-10.0)
[2022-11-14 02:46] LABS: A/G RATIO 0.81; ALANINE AMINOTRANSFERASE,ALT 17 U/L (16-63); ALBUMIN 2.9 g/dL (3.4-5.0); ALKALINE PHOSPHATASE 121 U/L (46-116); BILIRUBIN TOTAL 0.2 mg/dL (0.2-1.0); BLOOD UREA NITROGEN,BUN 39 mg/dL (7-18); C-REACTIVE PROTEIN 0.31 mg/dL (<=0.30); CALCIUM 8.6 mg/dL (8.5-10.1); CARBON DIOXIDE,CO2 31 mmol/L (21-32); CHLORIDE,CL 105 mmol/L (98-107); CREATININE 1.5 mg/dL (0.70-1.30); GLUCOSE RANDOM 281 mg/dL (70-99); PRO B-TYPE NATRIUR PEPT,BNPPRO 302 pg/mL (<=125); PROTEIN TOTAL,TP 6.5 g/dL (6.4-8.2); SODIUM,NA 142 mmol/L (136-145)
[2022-11-14 02:49] LABS: ASPARTATE AMNIOTRANSFERASE,AST < 10 U/L (15-37); ESTIMATED GFR 52 mL/min (>=60)
[2022-11-14] MEDS ORDERED: Acetaminophen 325 MG Tab PO ONE (02:58)
== END 2022-11-14 03:34 | disposition home or self-care (01) ==
LOC: VM.ED 01:48
DX: J44.9 Chronic obstructive pulmonary disease, unspecified (principal); I11.0 Hypertensive heart disease with heart failure; I50.9 Heart failure, unspecified; E11.43 Type 2 diabetes mellitus with diabetic autonomic (poly)neuropathy; Z79.4 Long term (current) use of insulin; Z79.899 Other long term (current) drug therapy; Z88.8 Allergy status to other drugs, medicaments and biological substances; Z88.7 Allergy status to serum and vaccine
CPT/HCPCS: 36415; 71045; 80053; 83880; 84484; 85025; 86140; 99285; A9270

== ENCOUNTER 2023-01-07 11:41 | Emergency (ER) | payer MEDICAID ==
[2023-01-07] MEDS ORDERED: Sodium Chloride 0.9% 10 ML Syringe FLUSH PRN (11:52)
[2023-01-07 12:14] LABS: BASOPHILS PERCENT AUTO 0.4 % (0.2-1.2); EOSINOPHILS ABSOLUTE AUTO 0.3 x10^3/uL (0.0-0.5); EOSINOPHILS PERCENT AUTO 5.3 % (0.0-4.0); HEMATOCRIT 39.1 % (40.0-52.0); HEMOGLOBIN 12.1 g/dL (14.0-18.0); IMMATURE GRAN ABSOLUTE AUTO 0.03 x10^3/uL (0.00-0.07); LYMPHOCYTES ABSOLUTE AUTO 1.1 x10^3/uL (1.0-4.8); LYMPHOCYTES PERCENT AUTO 19.6 % (25.0-50.0); MEAN CORPUSCULAR HEMOGLOBIN 26.5 pg (26.0-32.0); MEAN CORPUSCULAR HGB CONC 30.9 g/dL (32.0-36.0); MEAN CORPUSCULAR VOLUME 85.6 fL (78.0-93.0); MONOCYTES ABSOLUTE AUTO 0.4 x10^3/uL (0.0-0.8); MONOCYTES PERCENT AUTO 6.7 % (2.0-11.0); NEUTROPHILS ABSOLUTE AUTO 3.7 x10^3/uL (1.8-7.7); NEUTROPHILS PERCENT AUTO 67.5 % (50.0-80.0); PLATELET COUNT,PLT 76 x10^3/uL (130-400); RED BLOOD CELL COUNT 4.57 x10^6/uL (4.5-6.0); WHITE BLOOD CELL COUNT,WBC 5.5 x10^3/uL (4.0-10.0)
[2023-01-07 12:22] LABS: PROTHROMBIN TIME 10.7 SEC (9.5-12.2); PTT,PARTIAL THROMBOPLSTIN TIME 28.8 SEC (23.6-33.6)
[2023-01-07 12:25] LABS: A/G RATIO 0.78; ALANINE AMINOTRANSFERASE,ALT 30 U/L (16-63); ALBUMIN 2.9 g/dL (3.4-5.0); ALKALINE PHOSPHATASE 120 U/L (46-116); ANION GAP 11.7 mmol/L (5-15); ASPARTATE AMNIOTRANSFERASE,AST 27 U/L (15-37); BILIRUBIN TOTAL 0.3 mg/dL (0.2-1.0); C-REACTIVE PROTEIN 0.69 mg/dL (<=0.30); CALCIUM 8.4 mg/dL (8.5-10.1); CARBON DIOXIDE,CO2 35 mmol/L (21-32); CHLORIDE,CL 110 mmol/L (98-107); CREATININE 2.5 mg/dL (0.70-1.30); ESTIMATED GFR 28 mL/min (>=60); GLUCOSE RANDOM 182 mg/dL (70-99); POTASSIUM,K 4.7 mmol/L (3.5-5.1); PROTEIN TOTAL,TP 6.6 g/dL (6.4-8.2); SODIUM,NA 152 mmol/L (136-145)
[2023-01-07 12:26] LABS: BLOOD UREA NITROGEN,BUN 85 mg/dL (7-18)
[2023-01-07 12:27] LABS: LACTIC ACID 1.4 mmol/L (0.4-2.0)
[2023-01-07 13:09] LABS: PRO B-TYPE NATRIUR PEPT,BNPPRO 180 pg/mL (<=125)
[2023-01-07 13:11] LABS: HCO3 VENOUS,POC 31 mmol/L (22-29); O2 SATURATION VENOUS,POC 75 %; PCO2 VENOUS,POC 53 mmHg (41-51); PH VENOUS,POC 7.37 pH (7.32-7.43); PO2 VENOUS,POC 42 mmHg
== END 2023-01-07 13:43 ==
LOC: VM.ED 11:41
DX: J18.9 Pneumonia, unspecified organism (principal); R79.89 Other specified abnormal findings of blood chemistry; I13.0 Hypertensive heart and chronic kidney disease with heart failure and stage 1 through stage 4 chronic kidney disease, or unspecified chronic kidney disease; I50.9 Heart failure, unspecified; E11.22 Type 2 diabetes mellitus with diabetic chronic kidney disease; E11.42 Type 2 diabetes mellitus with diabetic polyneuropathy; N18.9 Chronic kidney disease, unspecified; J44.9 Chronic obstructive pulmonary disease, unspecified; Z79.899 Other long term (current) drug therapy; Z79.4 Long term (current) use of insulin; Z88.7 Allergy status to serum and vaccine; Z88.8 Allergy status to other drugs, medicaments and biological substances
CPT/HCPCS: 36415; 71045; 80053; 82140; 82803; 83605; 83880; 84484; 85025; 85610; 85730; 86140; 87040; 93005; 99285

== ENCOUNTER 2023-05-01 13:54 | Emergency (ER) | payer MEDICARE, MEDICAID ==
[2023-05-01 14:28] LABS: EOSINOPHILS ABSOLUTE AUTO 0.1 x10^3/uL (0.0-0.5); EOSINOPHILS PERCENT AUTO 0.6 % (0.0-4.0); HEMATOCRIT 40.7 % (40.0-52.0); HEMOGLOBIN 13.1 g/dL (14.0-18.0); IMMATURE GRAN ABSOLUTE AUTO 0.01 x10^3/uL (0.00-0.07); LYMPHOCYTES ABSOLUTE AUTO 0.5 x10^3/uL (1.0-4.8); LYMPHOCYTES PERCENT AUTO 4.3 % (25.0-50.0); MEAN CORPUSCULAR HEMOGLOBIN 27.3 pg (26.0-32.0); MEAN CORPUSCULAR HGB CONC 32.2 g/dL (32.0-36.0); MEAN CORPUSCULAR VOLUME 84.8 fL (78.0-93.0); MONOCYTES ABSOLUTE AUTO 0.8 x10^3/uL (0.0-0.8); MONOCYTES PERCENT AUTO 7.1 % (2.0-11.0); NEUTROPHILS ABSOLUTE AUTO 10.2 x10^3/uL (1.8-7.7); NEUTROPHILS PERCENT AUTO 87.9 % (50.0-80.0); WHITE BLOOD CELL COUNT,WBC 11.6 x10^3/uL (4.0-10.0)
[2023-05-01 14:37] LABS: PLATELET COUNT,PLT 134 x10^3/uL (130-400)
[2023-05-01 14:52] LABS: A/G RATIO 0.67; ALANINE AMINOTRANSFERASE,ALT 24 U/L (16-63); ALKALINE PHOSPHATASE 151 U/L (46-116); ASPARTATE AMNIOTRANSFERASE,AST 14 U/L (15-37); BILIRUBIN TOTAL 0.6 mg/dL (0.2-1.0); CALCIUM 8.3 mg/dL (8.5-10.1); CARBON DIOXIDE,CO2 27 mmol/L (21-32); CHLORIDE,CL 106 mmol/L (98-107); CREATININE 2.6 mg/dL (0.70-1.30); GLUCOSE RANDOM 143 mg/dL (70-99); MAGNESIUM 2.2 mg/dL (1.8-2.4); POTASSIUM,K 3.7 mmol/L (3.5-5.1); PRO B-TYPE NATRIUR PEPT,BNPPRO 799 pg/mL (<=125); PROTEIN TOTAL,TP 7.5 g/dL (6.4-8.2); SODIUM,NA 145 mmol/L (136-145)
[2023-05-01 14:53] LABS: ANION GAP 15.7 mmol/L (5-15); ESTIMATED GFR 27 mL/min (>=60)
[2023-05-01 14:54] LABS: BLOOD UREA NITROGEN,BUN 75 mg/dL (7-18)
[2023-05-01 15:16] LABS: CORONAVIRUS COVID-19 NAA NEGATIVE (NEGATIVE); INFLUENZA A NAA NEGATIVE (NEGATIVE); INFLUENZA B NAA NEGATIVE (NEGATIVE); RESPIRATORY SYNCYTIAL VIR NAA NEGATIVE (NEGATIVE)
[2023-05-01] MEDS ORDERED: Sodium Chloride 0.9% 1,000 ML IV ONE (15:42)
== END 2023-05-01 17:50 ==
LOC: VM.ED 13:54
DX: I11.0 Hypertensive heart disease with heart failure (principal); I50.9 Heart failure, unspecified; E86.0 Dehydration; N17.9 Acute kidney failure, unspecified; E11.9 Type 2 diabetes mellitus without complications; J44.9 Chronic obstructive pulmonary disease, unspecified; Z88.7 Allergy status to serum and vaccine; Z88.8 Allergy status to other drugs, medicaments and biological substances; Z79.899 Other long term (current) drug therapy; Z79.4 Long term (current) use of insulin; Z87.891 Personal history of nicotine dependence; Z20.822 Contact with and (suspected) exposure to COVID-19
CPT/HCPCS: 0241U; 36415; 71045; 80053; 83605; 83735; 83880; 84145; 85025; 86140; 87040; 87493; 96360; 99284; 99285-25; J7030

== ENCOUNTER 2023-10-04 21:28 | Emergency (ER) | payer MEDICARE, MEDICAID ==
[2023-10-04 21:47] LABS: BASOPHILS PERCENT AUTO 0.6 % (0.2-1.2); EOSINOPHILS ABSOLUTE AUTO 0.2 x10^3/uL (0.0-0.5); EOSINOPHILS PERCENT AUTO 4.5 % (0.0-4.0); HEMATOCRIT 38.6 % (40.0-52.0); HEMOGLOBIN 13.1 g/dL (14.0-18.0); IMMATURE GRAN ABSOLUTE AUTO 0.01 x10^3/uL (0.00-0.07); LYMPHOCYTES ABSOLUTE AUTO 0.9 x10^3/uL (1.0-4.8); MEAN CORPUSCULAR HEMOGLOBIN 26.8 pg (26.0-32.0); MEAN CORPUSCULAR HGB CONC 33.9 g/dL (32.0-36.0); MEAN CORPUSCULAR VOLUME 79.1 fL (78.0-93.0); MONOCYTES ABSOLUTE AUTO 0.5 x10^3/uL (0.0-0.8); MONOCYTES PERCENT AUTO 9.4 % (2.0-11.0); NEUTROPHILS ABSOLUTE AUTO 3.6 x10^3/uL (1.8-7.7); NEUTROPHILS PERCENT AUTO 68.3 % (50.0-80.0); PLATELET COUNT,PLT 142 x10^3/uL (130-400); RED BLOOD CELL COUNT 4.88 x10^6/uL (4.5-6.0); WHITE BLOOD CELL COUNT,WBC 5.3 x10^3/uL (4.0-10.0)
[2023-10-04 22:03] LABS: APPEARANCE,URINE CLEAR (CLEAR); BILIRUBIN,URINE NEGATIVE (NEGATIVE); COLOR,URINE YELLOW (YELLOW); GLUCOSE,URINE >=1000 mg/dL (NEGATIVE); KETONES,URINE NEGATIVE (NEGATIVE); LEUKOCYTE ESTERASE,URINE NEGATIVE (NEGATIVE); NITRITE,URINE NEGATIVE (NEGATIVE); OCCULT BLOOD,URINE NEGATIVE (NEGATIVE); PH,URINE 5.5 (5.0-8.0); PROTEIN,URINE NEGATIVE (NEGATIVE); UROBILINOGEN,URINE 0.2 EU/dL (0.2)
[2023-10-04 22:04] LABS: ALANINE AMINOTRANSFERASE,ALT 22 U/L (16-63); ALBUMIN 3.2 g/dL (3.4-5.0); ALKALINE PHOSPHATASE 177 U/L (46-116); ANION GAP 14.9 mmol/L (5-15); ASPARTATE AMNIOTRANSFERASE,AST 12 U/L (15-37); BILIRUBIN TOTAL 0.2 mg/dL (0.2-1.0); BLOOD UREA NITROGEN,BUN 68 mg/dL (7-18); CALCIUM 8.6 mg/dL (8.5-10.1); CARBON DIOXIDE,CO2 28 mmol/L (21-32); CHLORIDE,CL 99 mmol/L (98-107); CREATININE 2.6 mg/dL (0.70-1.30); ESTIMATED GFR 27 mL/min (>=60); GLUCOSE RANDOM 304 mg/dL (70-99); POTASSIUM,K 3.9 mmol/L (3.5-5.1); PROTEIN TOTAL,TP 7.2 g/dL (6.4-8.2); SODIUM,NA 138 mmol/L (136-145)
== END 2023-10-04 23:00 ==
LOC: VM.ED 21:28
DX: E11.65 Type 2 diabetes mellitus with hyperglycemia (principal); I11.0 Hypertensive heart disease with heart failure; E11.40 Type 2 diabetes mellitus with diabetic neuropathy, unspecified; J44.9 Chronic obstructive pulmonary disease, unspecified; Z88.7 Allergy status to serum and vaccine; Z88.8 Allergy status to other drugs, medicaments and biological substances; Z79.51 Long term (current) use of inhaled steroids; Z79.4 Long term (current) use of insulin; Z79.899 Other long term (current) drug therapy
CPT/HCPCS: 36415; 80053; 81003; 85025; 99284; 99285; C1758